=== PATIENT | male | born 1940 | race Caucasian/White ===

== ENCOUNTER 2017-01-19 18:33 | Inpatient (IN) | payer MEDICARE, MEDICAID ==
[~2017-01-19] VITALS: Ht 180.3 cm; Wt 61.8 kg
[~2017-01-19 18:33] MED LIST: ATOR40TA78 PO; CLOP75TA22 PO; GABA-827 PO; GABA300C10 PO; HYDR25TA6 PO; LISI-170 PO; OXYC5CAP4 PO
[2017-01-19 19:09] LABS: DAU SCREEN DISCLAIMER
[2017-01-19 19:30] LABS: BLOOD UREA NITROGEN 19 mg/dL (7-18)
[2017-01-19 19:34] LABS: ASPARTATE AMINO TRANSFERASE 17 U/L (15-37)
[2017-01-19 19:39] LABS: ACETAMINOPHEN < 2 mcg/mL (10-30)
[2017-01-19] MEDS ORDERED: PARO20TA4 PO (20:47)
[2017-01-19] MEDS ORDERED: DIVA125T3 PO (20:47)
[2017-01-19] MEDS ORDERED: LISI40TA PO (20:47)
[2017-01-19] MEDS ORDERED: TRAM50TA2 PO (20:47)
[2017-01-19] MEDS ORDERED: POLYETHYLENE GLYCOL 17 GM PACKET PO PRN (21:30)
[2017-01-19] MEDS ORDERED: BISACODYL 10 MG SUPP PR PRN (21:30)
[2017-01-19] MEDS ORDERED: ACETAMINOPHEN 325 MG TABLET PO PRN (21:30)
[2017-01-19] MEDS ORDERED: ONDANSETRON 2MG/ML, 2ML IVPush PRN (21:30)
[2017-01-19] MEDS: LISINOPRIL 20 MG TABLET PO SCH (23:48)
[2017-01-19] MEDS: DIVALPROEX 125 MG TABLET.DR PO SCH (23:48)
[2017-01-19] MEDS: GABAPENTIN 400 MG CAPSULE PO SCH (23:48)
[2017-01-19] MEDS: ATORVASTATIN 40 MG TABLET PO SCH (23:48)
[2017-01-19] MEDS: HEPARIN 5,000 UNITS/ML, 1ML SQ SCH (23:49)
[2017-01-19] MEDS: SODIUM CHLORIDE FLUSH 10ML SYR IVF SCH (23:49)
[2017-01-20 00:38] VITALS: BP 157/91
[2017-01-20 03:12] VITALS: BP 159/94
[2017-01-20] MEDS: HEPARIN 5,000 UNITS/ML, 1ML SQ SCH ×2 (08:58→17:13)
[2017-01-20] MEDS: LISINOPRIL 20 MG TABLET PO SCH ×2 (08:59→20:06)
[2017-01-20] MEDS: PAROXETINE 20 MG TABLET PO SCH (08:59)
[2017-01-20] MEDS: DIVALPROEX 125 MG TABLET.DR PO SCH ×3 (08:59→20:06)
[2017-01-20] MEDS: SODIUM CHLORIDE FLUSH 10ML SYR IVF SCH ×2 (08:59→20:07)
[2017-01-20] MEDS: FOLIC ACID 1 MG TABLET PO SCH (08:59)
[2017-01-20] MEDS ORDERED: SENNA/DOCUSATE TABLET PO SCH (09:00)
[2017-01-20] MEDS: CLOPIDOGREL 75 MG TABLET PO SCH (09:00)
[2017-01-20] MEDS: CYANOCOBALAMIN 1,000 MCG TABLET PO SCH (09:00)
[2017-01-20] MEDS: GABAPENTIN 400 MG CAPSULE PO SCH ×2 (09:00→20:06)
[2017-01-20 09:18] VITALS: BP 114/73
[2017-01-20 14:00] VITALS: BP 147/73
[2017-01-20] MEDS ORDERED: BISACODYL 10 MG SUPP PR PRN (15:30)
[2017-01-20] MEDS ORDERED: ACETAMINOPHEN 325 MG TABLET PO PRN (15:30)
[2017-01-20 18:56] VITALS: BP 132/78
[2017-01-20] MEDS: ATORVASTATIN 40 MG TABLET PO SCH (20:06)
[2017-01-21] MEDS: HEPARIN 5,000 UNITS/ML, 1ML SQ SCH ×3 (01:46→18:25)
[2017-01-21 02:23] VITALS: BP 158/84
[2017-01-21 07:18] VITALS: BP 154/84
[2017-01-21] MEDS: SODIUM CHLORIDE FLUSH 10ML SYR IVF SCH ×2 (10:26→21:20)
[2017-01-21] MEDS: DIVALPROEX 125 MG TABLET.DR PO SCH ×3 (10:26→21:20)
[2017-01-21] MEDS: PAROXETINE 20 MG TABLET PO SCH (10:26)
[2017-01-21] MEDS: GABAPENTIN 400 MG CAPSULE PO SCH ×2 (10:26→21:20)
[2017-01-21] MEDS: FOLIC ACID 1 MG TABLET PO SCH (10:26)
[2017-01-21] MEDS: LISINOPRIL 20 MG TABLET PO SCH ×2 (10:26→21:20)
[2017-01-21] MEDS: CYANOCOBALAMIN 1,000 MCG TABLET PO SCH (10:27)
[2017-01-21] MEDS: SENNA/DOCUSATE TABLET PO SCH (10:27)
[2017-01-21] MEDS: CLOPIDOGREL 75 MG TABLET PO SCH (10:30)
[2017-01-21 13:19] VITALS: BP 125/73
[2017-01-21 20:03] VITALS: BP 130/74
[2017-01-21] MEDS: ATORVASTATIN 40 MG TABLET PO SCH (21:20)
[2017-01-22 00:05] VITALS: BP 159/81
[2017-01-22] MEDS: HEPARIN 5,000 UNITS/ML, 1ML SQ SCH ×3 (05:08→20:30)
[2017-01-22 08:03] VITALS: BP 121/78
[2017-01-22] MEDS: LISINOPRIL 20 MG TABLET PO SCH ×2 (08:47→21:23)
[2017-01-22] MEDS: GABAPENTIN 400 MG CAPSULE PO SCH ×2 (08:47→21:24)
[2017-01-22] MEDS: PAROXETINE 20 MG TABLET PO SCH (08:47)
[2017-01-22] MEDS: SODIUM CHLORIDE FLUSH 10ML SYR IVF SCH ×2 (08:47→21:24)
[2017-01-22] MEDS: CYANOCOBALAMIN 1,000 MCG TABLET PO SCH (08:47)
[2017-01-22] MEDS: CLOPIDOGREL 75 MG TABLET PO SCH (08:47)
[2017-01-22] MEDS: SENNA/DOCUSATE TABLET PO SCH (08:47)
[2017-01-22] MEDS: DIVALPROEX 125 MG TABLET.DR PO SCH ×3 (08:48→21:24)
[2017-01-22] MEDS: FOLIC ACID 1 MG TABLET PO SCH (08:48)
[2017-01-22 15:11] VITALS: BP 120/68
[2017-01-22 20:00] VITALS: BP 159/78
[2017-01-22] MEDS: ATORVASTATIN 40 MG TABLET PO SCH (21:24)
[2017-01-23 02:00] VITALS: BP 125/74
[2017-01-23] MEDS: HEPARIN 5,000 UNITS/ML, 1ML SQ SCH ×3 (04:30→21:15)
[2017-01-23 07:50] VITALS: BP 129/77
[2017-01-23] MEDS: SODIUM CHLORIDE FLUSH 10ML SYR IVF SCH ×2 (09:00→21:14)
[2017-01-23] MEDS: SENNA/DOCUSATE TABLET PO SCH (09:00)
[2017-01-23] MEDS: CYANOCOBALAMIN 1,000 MCG TABLET PO SCH (09:27)
[2017-01-23] MEDS: FOLIC ACID 1 MG TABLET PO SCH (09:27)
[2017-01-23] MEDS: CLOPIDOGREL 75 MG TABLET PO SCH (09:27)
[2017-01-23] MEDS: LISINOPRIL 20 MG TABLET PO SCH ×2 (09:27→21:15)
[2017-01-23] MEDS: PAROXETINE 20 MG TABLET PO SCH (09:27)
[2017-01-23] MEDS: GABAPENTIN 400 MG CAPSULE PO SCH ×2 (09:27→21:15)
[2017-01-23] MEDS: DIVALPROEX 125 MG TABLET.DR PO SCH ×3 (09:27→21:15)
[2017-01-23 14:41] VITALS: BP 110/6
[2017-01-23 18:48] VITALS: BP 116/73
[2017-01-23] MEDS: ATORVASTATIN 40 MG TABLET PO SCH (21:15)
[2017-01-24 01:33] VITALS: BP 116/69
[2017-01-24] MEDS: HEPARIN 5,000 UNITS/ML, 1ML SQ SCH ×3 (05:00→21:30)
[2017-01-24 06:59] VITALS: BP 128/78
[2017-01-24] MEDS: GABAPENTIN 400 MG CAPSULE PO SCH ×2 (10:24→21:29)
[2017-01-24] MEDS: CYANOCOBALAMIN 1,000 MCG TABLET PO SCH (10:24)
[2017-01-24] MEDS: LISINOPRIL 20 MG TABLET PO SCH ×2 (10:24→21:29)
[2017-01-24] MEDS: FOLIC ACID 1 MG TABLET PO SCH (10:24)
[2017-01-24] MEDS: DIVALPROEX 125 MG TABLET.DR PO SCH ×3 (10:24→21:29)
[2017-01-24] MEDS: CLOPIDOGREL 75 MG TABLET PO SCH (10:24)
[2017-01-24] MEDS: PAROXETINE 20 MG TABLET PO SCH (10:24)
[2017-01-24] MEDS: SENNA/DOCUSATE TABLET PO SCH (10:24)
[2017-01-24] MEDS: SODIUM CHLORIDE FLUSH 10ML SYR IVF SCH ×2 (10:26→21:29)
[2017-01-24 13:53] VITALS: BP 122/73
[2017-01-24 20:44] VITALS: BP 160/85
[2017-01-24] MEDS: ATORVASTATIN 40 MG TABLET PO SCH (21:29)
[2017-01-25 02:59] VITALS: BP 132/81
[2017-01-25] MEDS: HEPARIN 5,000 UNITS/ML, 1ML SQ SCH ×2 (05:00→12:13)
[2017-01-25 08:04] VITALS: BP 132/73
[2017-01-25] MEDS: CLOPIDOGREL 75 MG TABLET PO SCH (08:34)
[2017-01-25] MEDS: FOLIC ACID 1 MG TABLET PO SCH (08:35)
[2017-01-25] MEDS: CYANOCOBALAMIN 1,000 MCG TABLET PO SCH (08:35)
[2017-01-25] MEDS: LISINOPRIL 20 MG TABLET PO SCH (08:35)
[2017-01-25] MEDS: SODIUM CHLORIDE FLUSH 10ML SYR IVF SCH (08:35)
[2017-01-25] MEDS: PAROXETINE 20 MG TABLET PO SCH (08:35)
[2017-01-25] MEDS: GABAPENTIN 400 MG CAPSULE PO SCH (08:35)
[2017-01-25] MEDS: SENNA/DOCUSATE TABLET PO SCH (08:35)
[2017-01-25] MEDS: DIVALPROEX 125 MG TABLET.DR PO SCH ×2 (08:35→16:05)
== END 2017-01-25 16:00 | DRG 641 ==
LOC: ED 21:59 → EDIP 22:00 → 3NE 22:54
PROVIDERS: ADMIT Internal Medicine; ATTEND Internal Medicine
DX: R62.7 Adult failure to thrive (principal); E44.1 Mild protein-calorie malnutrition; Z68.1 Body mass index [BMI] 19.9 or less, adult; D75.89 Other specified diseases of blood and blood-forming organs; E78.00 Pure hypercholesterolemia, unspecified; E78.5 Hyperlipidemia, unspecified; F09 Unspecified mental disorder due to known physiological condition; F91.9 Conduct disorder, unspecified; G62.9 Polyneuropathy, unspecified; I10 Essential (primary) hypertension; Z86.73 Personal history of transient ischemic attack (TIA), and cerebral infarction without residual deficits; Z91.19 Patient's noncompliance with other medical treatment and regimen; Z91.81 History of falling
CPT/HCPCS: 36415; 80053; 80307; 80329; 81001; 85025; 87086; 99285; J1644; G0480

== ENCOUNTER 2017-01-28 10:45 | Inpatient (IN) | payer MEDICARE, MEDICAID ==
[~2017-01-28] VITALS: Ht 180.3 cm; Wt 67.7 kg
[~2017-01-28 10:45] MED LIST changes: +DIVA125T3 PO; +LISI40TA PO; +PARO20TA4 PO; +TRAM50TA2 PO
[2017-01-28] MEDS ORDERED: SODIUM CHLORIDE 0.9% 1,000 ML IV ONE (11:07)
[2017-01-28] MEDS ORDERED: CETI10CA PO (11:19)
[2017-01-28] MEDS ORDERED: DIVA125T2 PO (11:19)
[2017-01-28] MEDS ORDERED: ONDANSETRON 2MG/ML, 2ML IVPush ONE (11:30)
[2017-01-28] MEDS ORDERED: SODIUM CHLORIDE FLUSH 10ML SYR IVF ONE (11:30)
[2017-01-28] MEDS ORDERED: MORPHINE SULFATE 4 MG/ML, 1ML ONE ×2 (11:33→13:14)
[2017-01-28] MEDS ORDERED: ONDANSETRON 2MG/ML, 2ML ONE (11:33)
[2017-01-28] MEDS: MORPHINE SULFATE 4 MG/ML, 1ML IVPush PRN ×2 (11:35→13:19)
[2017-01-28 11:36] LABS: HEMATOCRIT 39.5 % (39.2-51.8); HEMOGLOBIN 13.1 g/dL (13.7-18.0); WHITE BLOOD COUNT 8.4 x10^3/uL (3.4-10)
[2017-01-28 12:34] LABS: IS PT STATUS REG ER OR PRE ER? YES
[2017-01-28 12:42] LABS: BLOOD UREA NITROGEN 25 mg/dL (7-18)
[2017-01-28 13:20] LABS: PATH.CAST-FLAG NOT PRESENT; SPERM-FLAG NOT PRESENT; SRC-FLAG NOT PRESENT; XTAL-FLAG NOT PRESENT; YLC-FLAG NOT PRESENT
[2017-01-28] MEDS ORDERED: POLYETHYLENE GLYCOL 17 GM PACKET PO PRN (14:30)
[2017-01-28 15:29] VITALS: BP 141/83
[2017-01-28 15:36] VITALS: BP 148/82
[2017-01-28 15:41] VITALS: BP 146/81
[2017-01-28] MEDS: DIVALPROEX 125 MG TABLET.DR PO SCH ×2 (16:00→20:26)
[2017-01-28 16:20] VITALS: BP 147/79
[2017-01-28 16:54] VITALS: BP 146/88
[2017-01-28] MEDS: SODIUM CHLORIDE 0.9% 1,000 ML IV SCH (20:17)
[2017-01-28] MEDS: ATORVASTATIN 40 MG TABLET PO SCH (20:26)
[2017-01-29 03:24] LABS: HEMATOCRIT 35.6 % (39.2-51.8); HEMOGLOBIN 11.6 g/dL (13.7-18.0); WHITE BLOOD COUNT 8.4 x10^3/uL (3.4-10)
[2017-01-29 03:38] LABS: ASPARTATE AMINO TRANSFERASE 18 U/L (15-37); BLOOD UREA NITROGEN 19 mg/dL (7-18)
[2017-01-29 04:30] VITALS: BP 139/85
[2017-01-29] MEDS: PANTOPRAZOLE 40 MG IV IVPush SCH ×2 (04:36→15:16)
[2017-01-29] MEDS: SODIUM CHLORIDE 0.9% 1,000 ML IV SCH ×3 (05:44→20:07)
[2017-01-29] MEDS ORDERED: PANTOPROZOLE 40MG TABLET PO SCH (07:30)
[2017-01-29] MEDS: PAROXETINE 20 MG TABLET PO SCH (08:11)
[2017-01-29] MEDS: ONDANSETRON 2MG/ML, 2ML IVPush PRN ×2 (08:11→15:15)
[2017-01-29] MEDS: SENNA/DOCUSATE TABLET PO SCH (08:11)
[2017-01-29] MEDS: DIVALPROEX 125 MG TABLET.DR PO SCH ×3 (08:11→21:05)
[2017-01-29] MEDS: hydrALAzine 20 MG/ML, 1ML IVPush PRN (12:56)
[2017-01-29] MEDS ORDERED: MORPHINE SULFATE 4 MG/ML, 1ML ONE (13:27)
[2017-01-29] MEDS ORDERED: morphine SULFATE 10 MG/ML, 1ML IVPush ONE (14:00)
[2017-01-29] MEDS ORDERED: PROMETHAZINE 25 MG/ML, 1ML IM PRN (16:30)
[2017-01-29] MEDS: ENALAPRILAT 1.25 MG/ML, 2ML IVPush PRN (18:03)
[2017-01-29] MEDS: ATORVASTATIN 40 MG TABLET PO SCH (21:05)
[2017-01-30] MEDS: hydrALAzine 20 MG/ML, 1ML IVPush PRN ×5 (00:09→23:12)
[2017-01-30] MEDS: PANTOPRAZOLE 40 MG IV IVPush SCH (03:19)
[2017-01-30 04:00] VITALS: BP 107/61
[2017-01-30] MEDS: SODIUM CHLORIDE 0.9% 1,000 ML IV SCH ×3 (04:38→20:02)
[2017-01-30] MEDS: SENNA/DOCUSATE TABLET PO SCH (08:44)
[2017-01-30] MEDS: DIVALPROEX 125 MG TABLET.DR PO SCH ×3 (08:44→21:06)
[2017-01-30] MEDS: PAROXETINE 20 MG TABLET PO SCH (08:44)
[2017-01-30] MEDS: ACETAMINOPHEN 325 MG TABLET PO PRN ×2 (10:36→17:53)
[2017-01-30] MEDS: ONDANSETRON 2MG/ML, 2ML IVPush PRN ×2 (10:55→17:41)
[2017-01-30] MEDS: AMPICILLIN/SULBACTAM 3 GM in SODIUM CHLORIDE 0.9% 100 ML IV SCH ×2 (13:31→20:02)
[2017-01-30] MEDS: ENALAPRILAT 1.25 MG/ML, 2ML IVPush PRN (17:17)
[2017-01-30] MEDS: ATORVASTATIN 40 MG TABLET PO SCH (21:06)
[2017-01-31] MEDS: AMPICILLIN/SULBACTAM 3 GM in SODIUM CHLORIDE 0.9% 100 ML IV SCH ×4 (01:07→21:34)
[2017-01-31 04:00] VITALS: BP 153/68
[2017-01-31 04:51] LABS: HEMATOCRIT 40.3 % (39.2-51.8); HEMOGLOBIN 13.2 g/dL (13.7-18.0); WHITE BLOOD COUNT 7.4 x10^3/uL (3.4-10)
[2017-01-31] MEDS: ENALAPRILAT 1.25 MG/ML, 2ML IVPush PRN ×2 (04:53→18:21)
[2017-01-31 05:02] LABS: BLOOD UREA NITROGEN 10 mg/dL (7-18)
[2017-01-31] MEDS: SODIUM CHLORIDE 0.9% 1,000 ML IV SCH ×2 (05:37→14:05)
[2017-01-31] MEDS: PAROXETINE 20 MG TABLET PO SCH (08:09)
[2017-01-31] MEDS: DIVALPROEX 125 MG TABLET.DR PO SCH ×3 (08:09→21:34)
[2017-01-31] MEDS: SENNA/DOCUSATE TABLET PO SCH (08:09)
[2017-01-31] MEDS: ONDANSETRON 2MG/ML, 2ML IVPush PRN (08:11)
[2017-01-31] MEDS: hydrALAzine 20 MG/ML, 1ML IVPush PRN ×2 (12:04→15:37)
[2017-01-31 18:21] VITALS: BP 167/78
[2017-01-31 19:44] VITALS: BP 131/78
[2017-01-31 20:00] VITALS: BP 117/65
[2017-01-31 21:30] VITALS: BP 123/73
[2017-01-31] MEDS: ATORVASTATIN 40 MG TABLET PO SCH (21:34)
[2017-02-01 01:18] VITALS: BP 136/74
[2017-02-01 01:52] VITALS: BP 137/70
[2017-02-01] MEDS: SODIUM CHLORIDE 0.9% 1,000 ML IV SCH ×2 (03:11→08:24)
[2017-02-01] MEDS: AMPICILLIN/SULBACTAM 3 GM in SODIUM CHLORIDE 0.9% 100 ML IV SCH ×4 (03:11→22:19)
[2017-02-01 05:47] LABS: HEMATOCRIT 35.8 % (39.2-51.8); HEMOGLOBIN 11.9 g/dL (13.7-18.0); WHITE BLOOD COUNT 6.9 x10^3/uL (3.4-10)
[2017-02-01 05:57] LABS: ASPARTATE AMINO TRANSFERASE 14 U/L (15-37); BLOOD UREA NITROGEN 12 mg/dL (7-18)
[2017-02-01 08:06] VITALS: BP 153/74
[2017-02-01] MEDS: SENNA/DOCUSATE TABLET PO SCH (08:23)
[2017-02-01] MEDS: DIVALPROEX 125 MG TABLET.DR PO SCH ×3 (08:23→22:19)
[2017-02-01] MEDS: PAROXETINE 20 MG TABLET PO SCH (08:23)
[2017-02-01 12:50] VITALS: BP 131/79
[2017-02-01] MEDS ORDERED: POTASSIUM CHLORIDE 20 MEQ TAB.ER.PRT PO ONE (14:30)
[2017-02-01 19:40] VITALS: BP 162/80
[2017-02-01] MEDS: ATORVASTATIN 40 MG TABLET PO SCH (22:19)
[2017-02-02 02:21] VITALS: BP 151/76
[2017-02-02] MEDS: AMPICILLIN/SULBACTAM 3 GM in SODIUM CHLORIDE 0.9% 100 ML IV SCH ×4 (05:04→23:45)
[2017-02-02 05:53] LABS: HEMATOCRIT 34.2 % (39.2-51.8); HEMOGLOBIN 11.5 g/dL (13.7-18.0); WHITE BLOOD COUNT 6.7 x10^3/uL (3.4-10)
[2017-02-02 06:03] LABS: BLOOD UREA NITROGEN 17 mg/dL (7-18)
[2017-02-02] MEDS: SENNA/DOCUSATE TABLET PO SCH (07:15)
[2017-02-02] MEDS: PAROXETINE 20 MG TABLET PO SCH (07:15)
[2017-02-02] MEDS: DIVALPROEX 125 MG TABLET.DR PO SCH ×3 (07:15→20:43)
[2017-02-02 07:57] VITALS: BP 156/87
[2017-02-02 12:50] VITALS: BP 129/68
[2017-02-02 20:24] VITALS: BP 160/82
[2017-02-02] MEDS: ATORVASTATIN 40 MG TABLET PO SCH (20:43)
[2017-02-03 04:55] VITALS: BP 151/79
[2017-02-03] MEDS: AMPICILLIN/SULBACTAM 3 GM in SODIUM CHLORIDE 0.9% 100 ML IV SCH ×2 (05:22→10:37)
[2017-02-03] MEDS: DIVALPROEX 125 MG TABLET.DR PO SCH ×3 (10:24→20:20)
[2017-02-03] MEDS: PAROXETINE 20 MG TABLET PO SCH (10:24)
[2017-02-03] MEDS: LISINOPRIL 10 MG TABLET PO SCH (10:25)
[2017-02-03] MEDS: SENNA/DOCUSATE TABLET PO SCH (10:25)
[2017-02-03 10:33] VITALS: BP 186/91
[2017-02-03] MEDS: hydrALAzine 20 MG/ML, 1ML IVPush PRN (10:37)
[2017-02-03 11:50] VITALS: BP 120/65
[2017-02-03 13:45] VITALS: BP 120/68
[2017-02-03] MEDS: ACETAMINOPHEN 325 MG TABLET PO PRN (15:43)
[2017-02-03 20:16] VITALS: BP 146/73
[2017-02-03] MEDS: ATORVASTATIN 40 MG TABLET PO SCH (20:21)
[2017-02-04 00:59] VITALS: BP 143/65
[2017-02-04] MEDS: SENNA/DOCUSATE TABLET PO SCH (08:05)
[2017-02-04] MEDS: LISINOPRIL 10 MG TABLET PO SCH (08:06)
[2017-02-04] MEDS: PAROXETINE 20 MG TABLET PO SCH (08:06)
[2017-02-04] MEDS: DIVALPROEX 125 MG TABLET.DR PO SCH ×3 (08:06→20:54)
[2017-02-04 08:08] VITALS: BP 144/87
[2017-02-04] MEDS ORDERED: CEFAZOLIN PMX 1GM/50ML 50 ML IVPB ONE (10:00)
[2017-02-04] MEDS: SODIUM CHLORIDE 0.9% 1,000 ML IV SCH ×2 (12:26→17:58)
[2017-02-04] MEDS ORDERED: CEFAZOLIN PMX 1GM/50ML 50 ML ONE (14:00)
[2017-02-04] MEDS ORDERED: MIDAZOLAM 1 MG/ML, 5ML ONE (14:00)
[2017-02-04] MEDS ORDERED: LIDOCAINE 2%, 20ML ONE (14:00)
[2017-02-04] MEDS ORDERED: FENTANYL PF 100 MCG/2ML ONE (14:00)
[2017-02-04] MEDS ORDERED: CEFAZOLIN 1,000 MG ONE (14:00)
[2017-02-04] MEDS ORDERED: ONDANSETRON 2MG/ML, 2ML ONE (15:33)
[2017-02-04] MEDS: hydrALAzine 20 MG/ML, 1ML IVPush PRN (16:28)
[2017-02-04] MEDS: ONDANSETRON 2MG/ML, 2ML IVPush PRN (17:46)
[2017-02-04] MEDS: ENALAPRILAT 1.25 MG/ML, 2ML IVPush PRN (17:50)
[2017-02-04 17:51] VITALS: BP 171/85
[2017-02-04] MEDS: ACETAMINOPHEN 325 MG TABLET PO PRN (18:09)
[2017-02-04 20:44] VITALS: BP 138/80
[2017-02-04] MEDS: ATORVASTATIN 40 MG TABLET PO SCH (20:54)
[2017-02-04] MEDS: SODIUM CHLORIDE FLUSH 10ML SYR IVF SCH (20:54)
[2017-02-04] MEDS ORDERED: VANCOMYCIN PMX 1GM/200ML 200 ML IVPB SCH (22:00)
[2017-02-04] MEDS: CEFAZOLIN PMX 1GM/50ML 50 ML IV SCH (23:00)
[2017-02-05 01:34] VITALS: BP 146/74
[2017-02-05] MEDS: CEFAZOLIN PMX 1GM/50ML 50 ML IV SCH (07:21)
[2017-02-05 07:40] VITALS: BP 171/85
[2017-02-05] MEDS: SODIUM CHLORIDE FLUSH 10ML SYR IVF SCH (07:41)
[2017-02-05] MEDS: LISINOPRIL 10 MG TABLET PO SCH (07:42)
[2017-02-05] MEDS: SENNA/DOCUSATE TABLET PO SCH (07:42)
[2017-02-05] MEDS: PAROXETINE 20 MG TABLET PO SCH (07:42)
[2017-02-05] MEDS: DIVALPROEX 125 MG TABLET.DR PO SCH ×2 (07:42→15:58)
[2017-02-05] MEDS: hydrALAzine 20 MG/ML, 1ML IVPush PRN (07:45)
[2017-02-05 09:14] VITALS: BP_SYST 136
[2017-02-05] MEDS ORDERED: METOPROLOL TARTRATE 25 MG TABLET PO SCH (09:30)
[2017-02-05] MEDS ORDERED: METO25TA35 PO (12:14)
[2017-02-05] MEDS ORDERED: LISI-167 PO (12:14)
[2017-02-05] MEDS: ONDANSETRON 2MG/ML, 2ML IVPush PRN (12:20)
[2017-02-05 12:23] VITALS: BP 122/74
[2017-02-05 13:58] VITALS: BP 146/82
[2017-02-05] MEDS ORDERED: LISINOPRIL 10 MG TABLET PO SCH (21:00)
== END 2017-02-05 16:34 | disposition home or self-care (01) | DRG 40 ==
LOC: ED 13:20 → EDIP 13:21 → ED 13:55 → CCU 16:29 → 5SO 01-31 15:08
PROVIDERS: ADMIT Internal Medicine; ATTEND Family Medicine
PROC: 30233R1 Transfusion of Nonautologous Platelets into Peripheral Vein, Percutaneous Approach (ICD-10-PCS; 2017-01-28)
PROC: 02H63JZ Insertion of Pacemaker Lead into Right Atrium, Percutaneous Approach (ICD-10-PCS; principal; 2017-02-04)
PROC: 0JH606Z Insertion of Pacemaker, Dual Chamber into Chest Subcutaneous Tissue and Fascia, Open Approach (ICD-10-PCS; 2017-02-04)
PROC: 02HK3JZ Insertion of Pacemaker Lead into Right Ventricle, Percutaneous Approach (ICD-10-PCS; 2017-02-04)
DX: S06.6X9A Traumatic subarachnoid hemorrhage with loss of consciousness of unspecified duration, initial encounter (principal); G93.40 Encephalopathy, unspecified; E43 Unspecified severe protein-calorie malnutrition; I50.20 Unspecified systolic (congestive) heart failure; I11.0 Hypertensive heart disease with heart failure; G62.9 Polyneuropathy, unspecified; S02.30XA Fracture of orbital floor, unspecified side, initial encounter for closed fracture; I42.9 Cardiomyopathy, unspecified; F03.90 Unspecified dementia, unspecified severity, without behavioral disturbance, psychotic disturbance, mood disturbance, and anxiety; S02.0XXA Fracture of vault of skull, initial encounter for closed fracture; S02.19XA Other fracture of base of skull, initial encounter for closed fracture; S02.40FA Zygomatic fracture, left side, initial encounter for closed fracture; D75.89 Other specified diseases of blood and blood-forming organs; I10 Essential (primary) hypertension; R53.81 Other malaise; E78.5 Hyperlipidemia, unspecified; R00.1 Bradycardia, unspecified; E78.00 Pure hypercholesterolemia, unspecified; I44.1 Atrioventricular block, second degree; K05.6 Periodontal disease, unspecified; M43.12 Spondylolisthesis, cervical region; W18.39XA Other fall on same level, initial encounter; Z59.0 Homelessness; Z86.73 Personal history of transient ischemic attack (TIA), and cerebral infarction without residual deficits; Z87.891 Personal history of nicotine dependence; Y93.89 Activity, other specified; Y92.098 Other place in other non-institutional residence as the place of occurrence of the external cause; Y99.8 Other external cause status
CPT/HCPCS: 33208; 36415; 70450; 70486; 71010; 72125; 80048; 80053; 80164; 81001; 82040; 82607; 82746; 84443; 84484; 85025; 85610; 85730; 86850; 86900; 87081; 93005; 93306; 99156; 99157; 99291; C1779; C1785; C1892; J0295; J0690; J2250; J2405; J2550; J3010; J3490; 92523-GN; C9113; J0360; J2270; J7030; P9035

== ENCOUNTER 2017-03-05 10:17 | Inpatient (IN) | payer MEDICARE, MEDICAID ==
[~2017-03-05] VITALS: Ht 175.3 cm; Wt 105.1 kg
[~2017-03-05 10:17] MED LIST changes: +CETI10CA PO; -CLOP75TA22 PO; +CLOP75TA52 PO; +DIVA125T2 PO; +LISI-167 PO; +METO25TA35 PO; +OXYC5CAP2 PO; -OXYC5CAP4 PO
[2017-03-05] MEDS ORDERED: SODIUM CHLORIDE 0.9% 1,000ML IVBOLUS ONE (10:30)
[2017-03-05] MEDS ORDERED: SODIUM CHLORIDE FLUSH 10ML SYR IVF ONE (10:30)
[2017-03-05 11:32] LABS: TROPONIN I 0.309 ng/mL (0.000-0.045)
[2017-03-05 11:46] LABS: MD YES; MEAN CORPUSCULAR HEMOGLOBIN 32.9 pg (27.5-34.5); MEAN CORPUSCULAR HGB CONC 33.3 g/dL (33.2-36.2); MEAN CORPUSCULAR VOLUME 98.6 fL (81-97); MEAN PLATELET VOLUME 9.6 fL (7.4-10.4); PLATELET COUNT 100 x10^3/uL (130-400); RED BLOOD COUNT 3.88 x10^6/uL (4.38-5.82); RED CELL DISTRIBUTION WIDTH 15.4 % (9.4-14.8)
[2017-03-05 11:48] LABS: BAND#(MANUAL) 1.54 x10^3/uL; BANDS%(MANUAL) 8 % (0-7); MONOS#(MANUAL) 0.39 x10^3/uL (0.3-2.7); MONOS% (MANUAL) 2 % (2-9)
[2017-03-05 11:49] LABS: LYMPH#(MANUAL) 0.19 x10^3/uL (1-3.4); LYMPHS% (MANUAL) 1 % (22-44); SEGS% (MANUAL) 89 % (42-75)
[2017-03-05 11:50] LABS: <RBC MORPHOLOGY> NORMAL
[2017-03-05 11:51] LABS: <PLATELET ESTIMATE> DECREASED; LARGE PLATELETS 1+
[2017-03-05 12:17] LABS: ANION GAP 10 mmol/L (5-15); CALCIUM 7.9 mg/dL (8.5-10.1); CHLORIDE 111 mmol/L (98-107)
[2017-03-05 12:20] LABS: ALANINE AMINOTRANSFERASE 52 U/L (12-78); CREATININE 1.72 mg/dL (0.7-1.3)
[2017-03-05 12:22] LABS: ALKALINE PHOSPHATASE 129 U/L (45-117); BILIRUBIN,TOTAL 0.8 mg/dL (0.2-1.0); TOTAL PROTEIN 7.6 g/dL (6.4-8.2)
[2017-03-05 13:23] LABS: MICROSCOPIC INDICATED
[2017-03-05 13:29] LABS: CULTURE INDICATED? YES
[2017-03-05] MEDS ORDERED: SODIUM CHLORIDE 0.9% 1,000 ML IV ONE (13:30)
[2017-03-05] MEDS ORDERED: CEFTRIAXONE PMX 1GM/50ML 50 ML IV ONE (13:30)
[2017-03-05] MEDS ORDERED: CEFTRIAXONE PMX 1GM/50ML 50 ML ONE (13:47)
[2017-03-05] MEDS ORDERED: ONDANSETRON 2MG/ML, 2ML IVPush PRN (15:30)
[2017-03-05] MEDS ORDERED: morphine SULFATE 10 MG/ML, 1ML IVPush PRN (15:30)
[2017-03-05] MEDS ORDERED: INSULIN DETEMIR 100 UNITS/ML, PEN SQ-INSULIN SCH (15:30)
[2017-03-05] MEDS ORDERED: ACETAMINOPHEN 325 MG TABLET PO PRN (15:30)
[2017-03-05] MEDS ORDERED: HYDROcodone/APAP 5/325 TABLET PO PRN (15:30)
[2017-03-05] MEDS ORDERED: hydrALAzine 20 MG/ML, 1ML IVPush PRN (15:30)
[2017-03-05] MEDS ORDERED: DEXTROSE 5% 1,000 ML IV SCH ×2 (15:30→17:50)
[2017-03-05] MEDS: CEFTRIAXONE PMX 1GM/50ML 50 ML IV SCH (15:30)
[2017-03-05 15:36] LABS: HEMOGLOBIN A1C 6.2 % (4.2-6.3)
[2017-03-05] MEDS: INSULIN ASPART 100 UNITS/ML, PEN SQ-INSULIN SCH ×2 (16:54→21:27)
[2017-03-05] MEDS: DIVALPROEX 125 MG TABLET.DR PO SCH ×2 (16:55→22:25)
[2017-03-05] MEDS ORDERED: VANCOMYCIN PER PHARMACY MC PRN (20:30)
[2017-03-05 20:47] VITALS: BP 81/50
[2017-03-05] MEDS ORDERED: PHARMACOKINETIC MONITORING MC PRN (21:00)
[2017-03-05] MEDS ORDERED: PHARMACOKINETIC CONSULTATION MC ONE (21:00)
[2017-03-05 21:24] VITALS: BP 119/77
[2017-03-05] MEDS: METOPROLOL TARTRATE 25 MG TABLET PO SCH (22:25)
[2017-03-05] MEDS: ATORVASTATIN 40 MG TABLET PO SCH (22:25)
[2017-03-05] MEDS: GABAPENTIN 400 MG CAPSULE PO SCH (22:25)
[2017-03-05] MEDS: LISINOPRIL 10 MG TABLET PO SCH (22:25)
[2017-03-05] MEDS: VANCOMYCIN 1,300 MG in SODIUM CHLORIDE 0.9% 250 ML IV SCH (22:46)
[2017-03-06 00:12] VITALS: BP 97/64
[2017-03-06] MEDS ORDERED: DIGOXIN 0.25 MG/ML, 2ML ONE (02:56)
[2017-03-06] MEDS ORDERED: DIGOXIN 0.25 MG/ML, 2ML IVPush ONE (03:00)
[2017-03-06] MEDS ORDERED: SODIUM CHLORIDE 0.9% 1,000 ML IVBOLUS PRN (03:07)
[2017-03-06] MEDS ORDERED: AMIODARONE 150 MG in DEXTROSE 5% 100 ML IV ONE (03:30)
[2017-03-06] MEDS ORDERED: FILTER 0.22 MICRON IV ONE (03:30)
[2017-03-06] MEDS ORDERED: ADENOSINE 6 MG/2 ML ONE ×2 (03:37→08:00)
[2017-03-06 03:41] LABS: TROPONIN I 0.155 ng/mL (0.000-0.045)
[2017-03-06 03:45] LABS: MEAN CORPUSCULAR HGB CONC 33.4 g/dL (33.2-36.2); MEAN CORPUSCULAR VOLUME 98.6 fL (81-97); MEAN PLATELET VOLUME 10.4 fL (7.4-10.4); PLATELET COUNT 61 x10^3/uL (130-400); RED BLOOD COUNT 3.59 x10^6/uL (4.38-5.82); RED CELL DISTRIBUTION WIDTH 15.6 % (9.4-14.8)
[2017-03-06] MEDS ORDERED: ACETAMINOPHEN 650 MG SUPP PR PRN (04:00)
[2017-03-06] MEDS ORDERED: ADENOSINE 6 MG/2 ML IVPush ONE ×2 (04:00)
[2017-03-06] MEDS ORDERED: FILTER 0.22 MICRON IV PRN (04:00)
[2017-03-06] MEDS: NOREPINEPHRINE 4 MG in SODIUM CHLORIDE 0.9% 246 ML IV PRN ×2 (04:00→13:11)
[2017-03-06] MEDS ORDERED: NOREPINEPHRINE 1 MG/ML, 4ML ONE (04:04)
[2017-03-06] MEDS ORDERED: LORazepam 2 MG/ML, 1ML ONE (04:19)
[2017-03-06] MEDS ORDERED: LORazepam 2 MG/ML, 1ML IVPush ONE (04:20)
[2017-03-06 04:25] LABS: BASOPHILS % (AUTO) 0 % (0-1); EOSINOPHILS # (AUTO) 0.03 x10^3/uL (0-0.4); EOSINOPHILS % (AUTO) 0 % (1-7); LYMPHOCYTES # (AUTO) 0.45 x10^3/uL (1-3.4); LYMPHOCYTES % (AUTO) 3 % (22-44); MD SCAN; MONOCYTES # (AUTO) 0.28 x10^3/uL (0.2-0.8); MONOCYTES % (AUTO) 2 % (2-9); NEUTROPHILS # (AUTO) 13.81 x10^3/uL (1.8-6.8); NEUTROPHILS % (AUTO) 95 % (42-75)
[2017-03-06 04:28] LABS: ALANINE AMINOTRANSFERASE 32 U/L (12-78); ALBUMIN 1.5 g/dL (3.4-5.0); ANION GAP 10 mmol/L (5-15); CALCIUM 7.6 mg/dL (8.5-10.1); CHLORIDE 115 mmol/L (98-107)
[2017-03-06 04:30] LABS: ALKALINE PHOSPHATASE 95 U/L (45-117); BILIRUBIN,TOTAL 0.6 mg/dL (0.2-1.0); TOTAL PROTEIN 6.1 g/dL (6.4-8.2)
[2017-03-06] MEDS: AMIODARONE 900 MG in DEXTROSE 5% 482 ML IV PRN (04:30)
[2017-03-06] MEDS: SODIUM CHLORIDE 0.9% 1,000 ML IV SCH ×2 (05:07→13:09)
[2017-03-06] MEDS: INSULIN ASPART 100 UNITS/ML, PEN SQ-INSULIN SCH ×4 (08:28→20:46)
[2017-03-06] MEDS: METOPROLOL TARTRATE 25 MG TABLET PO SCH ×2 (09:00→20:40)
[2017-03-06] MEDS: DIVALPROEX 125 MG TABLET.DR PO SCH ×3 (09:00→20:39)
[2017-03-06] MEDS: LISINOPRIL 10 MG TABLET PO SCH ×2 (09:00→20:40)
[2017-03-06] MEDS: PAROXETINE 20 MG TABLET PO SCH (09:00)
[2017-03-06] MEDS: GABAPENTIN 400 MG CAPSULE PO SCH ×2 (09:00→20:40)
[2017-03-06] MEDS: CEFTRIAXONE PMX 1GM/50ML 50 ML IV SCH (15:49)
[2017-03-06] MEDS: ATORVASTATIN 40 MG TABLET PO SCH (20:40)
[2017-03-06] MEDS: VANCOMYCIN 1,300 MG in SODIUM CHLORIDE 0.9% 250 ML IV SCH (20:47)
[2017-03-07] MEDS: SODIUM CHLORIDE 0.9% 1,000 ML IV SCH ×3 (00:35→16:34)
[2017-03-07 04:49] LABS: MEAN CORPUSCULAR HEMOGLOBIN 32.8 pg (27.5-34.5); MEAN CORPUSCULAR HGB CONC 33.4 g/dL (33.2-36.2); MEAN CORPUSCULAR VOLUME 98.1 fL (81-97); MEAN PLATELET VOLUME 11.8 fL (7.4-10.4); PLATELET COUNT 58 x10^3/uL (130-400); RED BLOOD COUNT 3.76 x10^6/uL (4.38-5.82); RED CELL DISTRIBUTION WIDTH 15.6 % (9.4-14.8)
[2017-03-07 04:59] LABS: ALBUMIN 1.4 g/dL (3.4-5.0); ANION GAP 7 mmol/L (5-15); CALCIUM 7.5 mg/dL (8.5-10.1); CHLORIDE 118 mmol/L (98-107)
[2017-03-07 05:02] LABS: ALANINE AMINOTRANSFERASE 24 U/L (12-78); ALKALINE PHOSPHATASE 93 U/L (45-117); BILIRUBIN,TOTAL 1.2 mg/dL (0.2-1.0); CREATININE 1.04 mg/dL (0.7-1.3); TOTAL PROTEIN 5.9 g/dL (6.4-8.2)
[2017-03-07 05:15] LABS: BASOPHILS # (AUTO) 0.24 x10^3/uL (0-0.1); BASOPHILS % (AUTO) 1 % (0-1); EOSINOPHILS % (AUTO) 0 % (1-7); LYMPHOCYTES # (AUTO) 0.56 x10^3/uL (1-3.4); LYMPHOCYTES % (AUTO) 3 % (22-44); MD SCAN; MONOCYTES # (AUTO) 0.45 x10^3/uL (0.2-0.8); MONOCYTES % (AUTO) 2 % (2-9); NEUTROPHILS # (AUTO) 17.52 x10^3/uL (1.8-6.8); NEUTROPHILS % (AUTO) 93 % (42-75)
[2017-03-07] MEDS: AMIODARONE 900 MG in DEXTROSE 5% 482 ML IV PRN (06:42)
[2017-03-07] MEDS: INSULIN ASPART 100 UNITS/ML, PEN SQ-INSULIN SCH ×3 (07:00→21:25)
[2017-03-07] MEDS: DIVALPROEX 125 MG TABLET.DR PO SCH ×3 (16:00→21:13)
[2017-03-07] MEDS: GABAPENTIN 400 MG CAPSULE PO SCH ×2 (16:09→21:16)
[2017-03-07] MEDS: METOPROLOL TARTRATE 25 MG TABLET PO SCH ×2 (16:10→21:14)
[2017-03-07] MEDS: PAROXETINE 20 MG TABLET PO SCH (16:10)
[2017-03-07] MEDS: LISINOPRIL 10 MG TABLET PO SCH ×2 (16:10→21:14)
[2017-03-07] MEDS: CEFTRIAXONE PMX 1GM/50ML 50 ML IV SCH (16:27)
[2017-03-07] MEDS: VANCOMYCIN 1,300 MG in SODIUM CHLORIDE 0.9% 250 ML IV SCH (21:14)
[2017-03-07] MEDS: ATORVASTATIN 40 MG TABLET PO SCH (21:14)
[2017-03-08] MEDS: SODIUM CHLORIDE 0.9% 1,000 ML IV SCH (02:32)
[2017-03-08] MEDS: INSULIN ASPART 100 UNITS/ML, PEN SQ-INSULIN SCH ×4 (03:00→23:21)
[2017-03-08 05:10] LABS: ALANINE AMINOTRANSFERASE 18 U/L (12-78); ALBUMIN 1.3 g/dL (3.4-5.0); ANION GAP 6 mmol/L (5-15); CALCIUM 7.5 mg/dL (8.5-10.1); CHLORIDE 122 mmol/L (98-107); MEAN CORPUSCULAR HEMOGLOBIN 33.3 pg (27.5-34.5); MEAN CORPUSCULAR HGB CONC 34.1 g/dL (33.2-36.2); MEAN CORPUSCULAR VOLUME 97.7 fL (81-97); MEAN PLATELET VOLUME 10.6 fL (7.4-10.4); RED BLOOD COUNT 3.93 x10^6/uL (4.38-5.82); RED CELL DISTRIBUTION WIDTH 15.6 % (9.4-14.8)
[2017-03-08 05:12] LABS: ALKALINE PHOSPHATASE 81 U/L (45-117); BILIRUBIN,TOTAL 1.1 mg/dL (0.2-1.0); CREATININE 1.05 mg/dL (0.7-1.3); TOTAL PROTEIN 5.8 g/dL (6.4-8.2)
[2017-03-08 05:14] LABS: PLATELET COUNT 48 x10^3/uL (130-400)
[2017-03-08 05:39] LABS: BASOPHILS % (AUTO) 0 % (0-1); EOSINOPHILS % (AUTO) 0 % (1-7); LYMPHOCYTES # (AUTO) 0.39 x10^3/uL (1-3.4); LYMPHOCYTES % (AUTO) 2 % (22-44); MD SCAN; MONOCYTES # (AUTO) 0.46 x10^3/uL (0.2-0.8); MONOCYTES % (AUTO) 3 % (2-9); NEUTROPHILS # (AUTO) 16.19 x10^3/uL (1.8-6.8); NEUTROPHILS % (AUTO) 95 % (42-75)
[2017-03-08 09:43] LABS: HIT RESULT POSITIVE (NEGATIVE)
[2017-03-08] MEDS: AMIODARONE 200 MG TABLET PO SCH (09:50)
[2017-03-08] MEDS: GABAPENTIN 250 MG/5 ML ORAL SOL PO SCH ×2 (09:50→22:59)
[2017-03-08] MEDS: METOPROLOL TARTRATE 25 MG TABLET PO SCH ×2 (09:50→22:59)
[2017-03-08] MEDS: LISINOPRIL 10 MG TABLET PO SCH ×2 (09:50→22:59)
[2017-03-08] MEDS: PAROXETINE 20 MG TABLET PO SCH (09:50)
[2017-03-08] MEDS: VALPROATE SODIUM 250 MG/5 ML ORAL SOLN PO SCH ×3 (09:51→22:59)
[2017-03-08] MEDS: SODIUM CHLORIDE 0.45% 1,000 ML IV SCH ×3 (09:53→23:01)
[2017-03-08] MEDS: LINEZOLID PMX 600MG/300ML 300 ML IV SCH ×2 (10:16→23:00)
[2017-03-08 21:02] VITALS: BP 115/76
[2017-03-08] MEDS: ATORVASTATIN 40 MG TABLET PO SCH (22:59)
[2017-03-08] MEDS: VANCOMYCIN 1,500 MG in SODIUM CHLORIDE 0.9% 250 ML IV SCH (23:21)
[2017-03-09 00:56] VITALS: BP 109/71
[2017-03-09] MEDS: INSULIN ASPART 100 UNITS/ML, PEN SQ-INSULIN SCH ×3 (04:37→16:47)
[2017-03-09 09:46] VITALS: BP 101/69
[2017-03-09] MEDS: PAROXETINE 20 MG TABLET PO SCH (09:48)
[2017-03-09] MEDS: LISINOPRIL 10 MG TABLET PO SCH ×2 (09:48→21:46)
[2017-03-09] MEDS: LINEZOLID PMX 600MG/300ML 300 ML IV SCH ×2 (09:48→21:45)
[2017-03-09] MEDS: GABAPENTIN 250 MG/5 ML ORAL SOL PO SCH ×2 (09:48→21:46)
[2017-03-09] MEDS: METOPROLOL TARTRATE 25 MG TABLET PO SCH ×2 (09:48→21:46)
[2017-03-09] MEDS: VALPROATE SODIUM 250 MG/5 ML ORAL SOLN PO SCH ×3 (09:48→21:46)
[2017-03-09] MEDS: AMIODARONE 200 MG TABLET PO SCH (09:48)
[2017-03-09 11:53] LABS: BASOPHILS # (AUTO) 0.01 x10^3/uL (0-0.1); BASOPHILS % (AUTO) 0 % (0-1); EOSINOPHILS # (AUTO) 0.04 x10^3/uL (0-0.4); EOSINOPHILS % (AUTO) 0 % (1-7); LYMPHOCYTES # (AUTO) 0.46 x10^3/uL (1-3.4); LYMPHOCYTES % (AUTO) 3 % (22-44); MD SCAN; MEAN CORPUSCULAR HEMOGLOBIN 32.7 pg (27.5-34.5); MEAN CORPUSCULAR HGB CONC 33.2 g/dL (33.2-36.2); MEAN CORPUSCULAR VOLUME 98.5 fL (81-97); MEAN PLATELET VOLUME 11.6 fL (7.4-10.4); MONOCYTES # (AUTO) 0.49 x10^3/uL (0.2-0.8); MONOCYTES % (AUTO) 3 % (2-9); NEUTROPHILS # (AUTO) 13.62 x10^3/uL (1.8-6.8); NEUTROPHILS % (AUTO) 93 % (42-75); PLATELET COUNT 42 x10^3/uL (130-400); RED CELL DISTRIBUTION WIDTH 16.1 % (9.4-14.8)
[2017-03-09] MEDS: SODIUM CHLORIDE 0.45% 1,000 ML IV SCH (11:59)
[2017-03-09 14:09] VITALS: BP 111/69
[2017-03-09 20:46] VITALS: BP 133/86
[2017-03-09] MEDS: ATORVASTATIN 40 MG TABLET PO SCH (21:46)
[2017-03-10] MEDS: VANCOMYCIN 1,500 MG in SODIUM CHLORIDE 0.9% 250 ML IV SCH (00:08)
[2017-03-10] MEDS: INSULIN ASPART 100 UNITS/ML, PEN SQ-INSULIN SCH ×4 (00:49→18:33)
[2017-03-10] MEDS ORDERED: ACETAMINOPHEN 650 MG SUPP PR PRN ×2 (03:30)
[2017-03-10] MEDS ORDERED: ACETAMINOPHEN 325 MG TABLET PO PRN ×2 (03:30)
[2017-03-10] MEDS ORDERED: HYDROcodone/APAP 5/325 TABLET PO PRN (03:30)
[2017-03-10] MEDS ORDERED: ONDANSETRON 2MG/ML, 2ML IVPush PRN ×2 (03:30)
[2017-03-10 03:48] VITALS: BP 99/63
[2017-03-10 05:32] LABS: MEAN CORPUSCULAR HEMOGLOBIN 32.8 pg (27.5-34.5); MEAN CORPUSCULAR HGB CONC 33.6 g/dL (33.2-36.2); MEAN CORPUSCULAR VOLUME 97.6 fL (81-97); RED BLOOD COUNT 3.35 x10^6/uL (4.38-5.82); RED CELL DISTRIBUTION WIDTH 15.9 % (9.4-14.8)
[2017-03-10 05:39] LABS: ALBUMIN 1.1 g/dL (3.4-5.0); ANION GAP 8 mmol/L (5-15); CALCIUM 6.8 mg/dL (8.5-10.1); CHLORIDE 117 mmol/L (98-107)
[2017-03-10 05:43] LABS: ALANINE AMINOTRANSFERASE 28 U/L (12-78); ALKALINE PHOSPHATASE 69 U/L (45-117); BILIRUBIN,TOTAL 0.9 mg/dL (0.2-1.0); CREATININE 1.57 mg/dL (0.7-1.3); TOTAL PROTEIN 5.6 g/dL (6.4-8.2)
[2017-03-10 06:16] LABS: MEAN PLATELET VOLUME 11.4 fL (7.4-10.4)
[2017-03-10 06:21] LABS: PLATELET COUNT 34 x10^3/uL (130-400)
[2017-03-10 06:22] LABS: ANISOCYTOSIS 1+; BASOPHILS # (AUTO) 0.01 x10^3/uL (0-0.1); BASOPHILS % (AUTO) 0 % (0-1); EOSINOPHILS # (AUTO) 0.07 x10^3/uL (0-0.4); EOSINOPHILS % (AUTO) 1 % (1-7); LYMPHOCYTES # (AUTO) 0.55 x10^3/uL (1-3.4); LYMPHOCYTES % (AUTO) 4 % (22-44); MD MORPH REVIEW ONLY; MONOCYTES # (AUTO) 0.13 x10^3/uL (0.2-0.8); MONOCYTES % (AUTO) 1 % (2-9); NEUTROPHILS % (AUTO) 95 % (42-75)
[2017-03-10 06:23] LABS: <PLATELET ESTIMATE> DECREASED; LARGE PLATELETS 1+; PMNS WITH VACUOLES 1+; TOXIC GRAN 1+
[2017-03-10 06:37] VITALS: BP 124/79
[2017-03-10] MEDS: SODIUM CHLORIDE 0.45% 1,000 ML IV SCH ×2 (06:41→17:48)
[2017-03-10] MEDS: morphine SULFATE 10 MG/ML, 1ML IVPush PRN ×2 (06:52→16:38)
[2017-03-10] MEDS: INSULIN DETEMIR 100 UNITS/ML, PEN SQ-INSULIN SCH ×2 (08:58→20:00)
[2017-03-10] MEDS ORDERED: SODIUM CHLORIDE 0.9%, 500ML IVBOLUS ONE (09:30)
[2017-03-10] MEDS ORDERED: RIFAMPIN 600 MG in SODIUM CHLORIDE 0.9% 100 ML IV SCH (10:00)
[2017-03-10] MEDS: METOPROLOL TARTRATE 25 MG TABLET PO SCH ×2 (10:15→21:00)
[2017-03-10] MEDS: AMIODARONE 200 MG TABLET PO SCH (10:15)
[2017-03-10] MEDS: VALPROATE SODIUM 250 MG/5 ML ORAL SOLN PO SCH ×3 (10:15→21:00)
[2017-03-10] MEDS: GABAPENTIN 250 MG/5 ML ORAL SOL PO SCH ×2 (10:16→21:00)
[2017-03-10] MEDS: PAROXETINE 20 MG TABLET PO SCH (10:16)
[2017-03-10] MEDS: LISINOPRIL 10 MG TABLET PO SCH ×2 (10:16→21:00)
[2017-03-10] MEDS ORDERED: INSULIN ASPART 100 UNITS/ML, PEN SQ-INSULIN SCH (11:00)
[2017-03-10] MEDS: DAPTOMYCIN 450 MG in SODIUM CHLORIDE 0.9% 100 ML IV SCH (11:11)
[2017-03-10 13:56] VITALS: BP 110/71
[2017-03-10 19:06] VITALS: BP 122/74
[2017-03-11] MEDS: morphine SULFATE 10 MG/ML, 1ML IVPush PRN (02:06)
[2017-03-11 02:09] VITALS: BP 84/52
[2017-03-11] MEDS: INSULIN ASPART 100 UNITS/ML, PEN SQ-INSULIN SCH ×5 (06:00→23:39)
[2017-03-11 06:15] LABS: CHLORIDE 113 mmol/L (98-107)
[2017-03-11 06:22] LABS: ALANINE AMINOTRANSFERASE 28 U/L (12-78); ALKALINE PHOSPHATASE 62 U/L (45-117); BILIRUBIN,TOTAL 1.2 mg/dL (0.2-1.0); CALCIUM 6.8 mg/dL (8.5-10.1); CREATININE 2.19 mg/dL (0.7-1.3); TOTAL PROTEIN 5.5 g/dL (6.4-8.2)
[2017-03-11 06:29] LABS: ANION GAP 8 mmol/L (5-15)
[2017-03-11 07:14] VITALS: BP 110/71
[2017-03-11] MEDS: ALBUMIN HUMAN 25% 100 ML IV SCH ×3 (07:38→23:37)
[2017-03-11 07:59] LABS: MEAN CORPUSCULAR HEMOGLOBIN 32.8 pg (27.5-34.5); MEAN CORPUSCULAR HGB CONC 33.7 g/dL (33.2-36.2); MEAN CORPUSCULAR VOLUME 97.4 fL (81-97); MEAN PLATELET VOLUME 11.7 fL (7.4-10.4); RED BLOOD COUNT 3.01 x10^6/uL (4.38-5.82); RED CELL DISTRIBUTION WIDTH 15.6 % (9.4-14.8)
[2017-03-11 08:00] LABS: PLATELET COUNT 31 x10^3/uL (130-400)
[2017-03-11 08:01] LABS: BASOPHILS # (AUTO) 0.01 x10^3/uL (0-0.1); BASOPHILS % (AUTO) 0 % (0-1); EOSINOPHILS # (AUTO) 0.08 x10^3/uL (0-0.4); EOSINOPHILS % (AUTO) 1 % (1-7); LYMPHOCYTES # (AUTO) 0.56 x10^3/uL (1-3.4); LYMPHOCYTES % (AUTO) 4 % (22-44); MD SCAN; MONOCYTES # (AUTO) 0.59 x10^3/uL (0.2-0.8); MONOCYTES % (AUTO) 4 % (2-9); NEUTROPHILS # (AUTO) 13.62 x10^3/uL (1.8-6.8); NEUTROPHILS % (AUTO) 92 % (42-75)
[2017-03-11] MEDS ORDERED: NOREPINEPHRINE 4 MG in SODIUM CHLORIDE 0.9% 246 ML IV PRN (09:00)
[2017-03-11 09:29] LABS: O2 FLOW 2 L/min
[2017-03-11] MEDS: VALPROATE SODIUM 250 MG/5 ML ORAL SOLN PO SCH ×3 (09:59→20:48)
[2017-03-11] MEDS: PAROXETINE 20 MG TABLET PO SCH (09:59)
[2017-03-11] MEDS: AMIODARONE 200 MG TABLET PO SCH (09:59)
[2017-03-11] MEDS: GABAPENTIN 250 MG/5 ML ORAL SOL PO SCH ×2 (09:59→20:47)
[2017-03-11] MEDS: INSULIN DETEMIR 100 UNITS/ML, PEN SQ-INSULIN SCH ×2 (10:02→20:47)
[2017-03-11] MEDS: FILTER 0.22 MICRON FOR AMIODARONE IV PRN (10:59)
[2017-03-11] MEDS ORDERED: AMIODARONE 150 MG in DEXTROSE 5% 100 ML IV ONE (11:00)
[2017-03-11] MEDS: AMIODARONE 900 MG in DEXTROSE 5% 482 ML IV PRN (11:07)
[2017-03-11] MEDS: DAPTOMYCIN 450 MG in SODIUM CHLORIDE 0.9% 100 ML IV SCH (12:09)
[2017-03-11] MEDS: CEFTAROLINE 300 MG in SODIUM CHLORIDE 0.9% 100 ML IV SCH ×2 (12:56→22:42)
[2017-03-11] MEDS ORDERED: LIDOCAINE 1%, 20ML ONE (14:17)
[2017-03-11 18:05] LABS: CELLS COUNTED 348
[2017-03-11] MEDS: SODIUM CHLORIDE 0.45% 1,000 ML IV SCH (19:50)
[2017-03-12 04:00] VITALS: BP 133/97
[2017-03-12] MEDS: SODIUM CHLORIDE 0.45% 1,000 ML IV SCH ×3 (04:07→21:15)
[2017-03-12] MEDS: AMIODARONE 900 MG in DEXTROSE 5% 482 ML IV PRN (06:29)
[2017-03-12] MEDS: INSULIN ASPART 100 UNITS/ML, PEN SQ-INSULIN SCH ×4 (06:29→23:49)
[2017-03-12] MEDS: FILTER 0.22 MICRON FOR AMIODARONE IV PRN ×2 (06:29→12:11)
[2017-03-12] MEDS: INSULIN DETEMIR 100 UNITS/ML, PEN SQ-INSULIN SCH ×2 (07:52→21:15)
[2017-03-12] MEDS: ALBUMIN HUMAN 25% 100 ML IV SCH ×3 (07:54→23:38)
[2017-03-12] MEDS: PAROXETINE 20 MG TABLET PO SCH (07:54)
[2017-03-12] MEDS: GABAPENTIN 250 MG/5 ML ORAL SOL PO SCH ×2 (07:54→21:16)
[2017-03-12] MEDS: VALPROATE SODIUM 250 MG/5 ML ORAL SOLN PO SCH ×3 (07:55→21:15)
[2017-03-12] MEDS: AMIODARONE 200 MG TABLET PO SCH (08:03)
[2017-03-12 08:26] LABS: MEAN CORPUSCULAR HEMOGLOBIN 32.6 pg (27.5-34.5); MEAN CORPUSCULAR HGB CONC 33.5 g/dL (33.2-36.2); MEAN CORPUSCULAR VOLUME 97.4 fL (81-97); RED BLOOD COUNT 2.89 x10^6/uL (4.38-5.82); RED CELL DISTRIBUTION WIDTH 15.7 % (9.4-14.8)
[2017-03-12 08:35] LABS: ANION GAP 11 mmol/L (5-15); CALCIUM 6.7 mg/dL (8.5-10.1); CHLORIDE 109 mmol/L (98-107); CREATININE 2.27 mg/dL (0.7-1.3)
[2017-03-12 09:01] LABS: MEAN PLATELET VOLUME 12.6 fL (7.4-10.4)
[2017-03-12 09:02] LABS: PLATELET COUNT 49 x10^3/uL (130-400)
[2017-03-12 09:04] LABS: BASOPHILS % (AUTO) 0 % (0-1); EOSINOPHILS # (AUTO) 0.09 x10^3/uL (0-0.4); EOSINOPHILS % (AUTO) 1 % (1-7); LYMPHOCYTES # (AUTO) 0.72 x10^3/uL (1-3.4); LYMPHOCYTES % (AUTO) 4 % (22-44); MD SCAN; MONOCYTES # (AUTO) 0.44 x10^3/uL (0.2-0.8); MONOCYTES % (AUTO) 3 % (2-9); NEUTROPHILS # (AUTO) 15.03 x10^3/uL (1.8-6.8); NEUTROPHILS % (AUTO) 92 % (42-75)
[2017-03-12] MEDS: CEFTAROLINE 300 MG in SODIUM CHLORIDE 0.9% 100 ML IV SCH ×2 (10:32→23:38)
[2017-03-12] MEDS ORDERED: AMIODARONE 150 MG in DEXTROSE 5% 100 ML IV ONE (11:30)
[2017-03-12] MEDS: DAPTOMYCIN 450 MG in SODIUM CHLORIDE 0.9% 100 ML IV SCH (12:56)
[2017-03-13 04:15] VITALS: BP 154/104
[2017-03-13 04:49] LABS: MEAN CORPUSCULAR HEMOGLOBIN 32.8 pg (27.5-34.5); MEAN CORPUSCULAR HGB CONC 33.9 g/dL (33.2-36.2); MEAN CORPUSCULAR VOLUME 96.8 fL (81-97); MEAN PLATELET VOLUME 13.2 fL (7.4-10.4); PLATELET COUNT 72 x10^3/uL (130-400); RED BLOOD COUNT 2.86 x10^6/uL (4.38-5.82); RED CELL DISTRIBUTION WIDTH 15.2 % (9.4-14.8)
[2017-03-13 04:50] LABS: ALBUMIN 2.3 g/dL (3.4-5.0); ANION GAP 8 mmol/L (5-15); CALCIUM 7.2 mg/dL (8.5-10.1); CHLORIDE 109 mmol/L (98-107)
[2017-03-13 04:54] LABS: ALANINE AMINOTRANSFERASE 17 U/L (12-78); ALKALINE PHOSPHATASE 50 U/L (45-117); BILIRUBIN,TOTAL 0.9 mg/dL (0.2-1.0); CREATININE 2.01 mg/dL (0.7-1.3); TOTAL PROTEIN 6.3 g/dL (6.4-8.2)
[2017-03-13 05:00] LABS: BASOPHILS % (AUTO) 0 % (0-1); EOSINOPHILS # (AUTO) 0.04 x10^3/uL (0-0.4); EOSINOPHILS % (AUTO) 0 % (1-7); LYMPHOCYTES # (AUTO) 0.46 x10^3/uL (1-3.4); LYMPHOCYTES % (AUTO) 2 % (22-44); MD SCAN; MONOCYTES # (AUTO) 0.46 x10^3/uL (0.2-0.8); MONOCYTES % (AUTO) 3 % (2-9); NEUTROPHILS # (AUTO) 17.78 x10^3/uL (1.8-6.8); NEUTROPHILS % (AUTO) 95 % (42-75)
[2017-03-13] MEDS: SODIUM CHLORIDE 0.45% 1,000 ML IV SCH (05:35)
[2017-03-13] MEDS: INSULIN ASPART 100 UNITS/ML, PEN SQ-INSULIN SCH ×4 (05:38→23:28)
[2017-03-13] MEDS: hydrALAzine 20 MG/ML, 1ML IVPush PRN (06:23)
[2017-03-13] MEDS ORDERED: FENTANYL PF 100 MCG/2ML ONE ×2 (07:48→09:09)
[2017-03-13] MEDS ORDERED: PROPOFOL 10 MG/ML, 20ML ONE (08:01)
[2017-03-13] MEDS ORDERED: ROCURONIUM 10 MG/ML,10ML ONE (08:01)
[2017-03-13] MEDS ORDERED: EPINEPHRINE 1 MG/ML, 1ML ONE (08:01)
[2017-03-13] MEDS ORDERED: VANCOMYCIN 500 MG ONE (08:35)
[2017-03-13] MEDS: AMIODARONE 200 MG TABLET PO SCH (10:16)
[2017-03-13] MEDS: VALPROATE SODIUM 250 MG/5 ML ORAL SOLN PO SCH ×3 (10:17→20:49)
[2017-03-13] MEDS: PAROXETINE 20 MG TABLET PO SCH (10:17)
[2017-03-13] MEDS: GABAPENTIN 250 MG/5 ML ORAL SOL PO SCH ×2 (10:17→20:49)
[2017-03-13] MEDS: INSULIN DETEMIR 100 UNITS/ML, PEN SQ-INSULIN SCH ×2 (10:51→20:47)
[2017-03-13] MEDS: ALBUMIN HUMAN 25% 100 ML IV SCH ×2 (11:15→18:29)
[2017-03-13] MEDS ORDERED: SODIUM CHLORIDE 0.9%, 500ML IVBOLUS ONE (12:00)
[2017-03-13] MEDS: CEFTAROLINE 300 MG in SODIUM CHLORIDE 0.9% 100 ML IV SCH ×2 (12:25→22:48)
[2017-03-13] MEDS: DAPTOMYCIN 450 MG in SODIUM CHLORIDE 0.9% 100 ML IV SCH (14:02)
[2017-03-13] MEDS ORDERED: SODIUM CHLORIDE 0.9% 1,000ML IVBOLUS ONE ×3 (15:30→21:30)
[2017-03-13] MEDS ORDERED: NOREPINEPHRINE 4 MG in SODIUM CHLORIDE 0.9% 246 ML IV PRN (16:48)
[2017-03-13] MEDS ORDERED: PHARMACY MAY ADJ FOR RENAL FX MC SCH (17:00)
[2017-03-13] MEDS ORDERED: SENNOSIDES 8.8 MG/5 ML ORAL SOL NG PRN (17:00)
[2017-03-13] MEDS ORDERED: LIDOCAINE-MPF 1%, 2ML ENDO PRN (17:00)
[2017-03-13] MEDS ORDERED: LACTULOSE 20 GM/30 ML UDC NG PRN (17:00)
[2017-03-13] MEDS ORDERED: BISACODYL 10 MG SUPP PR PRN (17:00)
[2017-03-13] MEDS: ALBUTEROL/IPRATROPIUM 2.5MG/0.5MG, 3 ML INLINE SCH ×2 (18:00→22:00)
[2017-03-13] MEDS: FAMOTIDINE 20 MG/2 ML IV SCH (20:50)
[2017-03-14] MEDS ORDERED: SODIUM CHLORIDE 0.9% 1,000ML IVBOLUS ONE
[2017-03-14] MEDS: ALBUTEROL/IPRATROPIUM 2.5MG/0.5MG, 3 ML INLINE SCH ×6 (02:00→22:06)
[2017-03-14] MEDS: ALBUMIN HUMAN 25% 100 ML IV SCH ×3 (03:31→19:42)
[2017-03-14 04:10] VITALS: BP 131/66
[2017-03-14 04:28] LABS: ALANINE AMINOTRANSFERASE 13 U/L (12-78); ALBUMIN 2.2 g/dL (3.4-5.0); ANION GAP 7 mmol/L (5-15); CALCIUM 6.8 mg/dL (8.5-10.1); CHLORIDE 114 mmol/L (98-107)
[2017-03-14 04:31] LABS: ALKALINE PHOSPHATASE 44 U/L (45-117); BILIRUBIN,TOTAL 0.4 mg/dL (0.2-1.0); CREATININE 2.06 mg/dL (0.7-1.3); TOTAL PROTEIN 5.5 g/dL (6.4-8.2)
[2017-03-14 05:20] LABS: BASOPHILS % (AUTO) 0 % (0-1); EOSINOPHILS # (AUTO) 0.08 x10^3/uL (0-0.4); EOSINOPHILS % (AUTO) 1 % (1-7); LYMPHOCYTES # (AUTO) 0.39 x10^3/uL (1-3.4); LYMPHOCYTES % (AUTO) 4 % (22-44); MD SCAN; MEAN CORPUSCULAR HEMOGLOBIN 32.2 pg (27.5-34.5); MEAN CORPUSCULAR HGB CONC 33.1 g/dL (33.2-36.2); MEAN CORPUSCULAR VOLUME 97.4 fL (81-97); MEAN PLATELET VOLUME 11.9 fL (7.4-10.4); MONOCYTES # (AUTO) 0.23 x10^3/uL (0.2-0.8); MONOCYTES % (AUTO) 2 % (2-9); NEUTROPHILS # (AUTO) 9.35 x10^3/uL (1.8-6.8); NEUTROPHILS % (AUTO) 93 % (42-75); PLATELET COUNT 69 x10^3/uL (130-400); RED BLOOD COUNT 2.44 x10^6/uL (4.38-5.82); RED CELL DISTRIBUTION WIDTH 15.7 % (9.4-14.8)
[2017-03-14] MEDS: INSULIN ASPART 100 UNITS/ML, PEN SQ-INSULIN SCH ×4 (05:34→23:40)
[2017-03-14] MEDS: AMIODARONE 200 MG TABLET PO SCH (07:39)
[2017-03-14] MEDS: PAROXETINE 20 MG TABLET PO SCH (07:39)
[2017-03-14] MEDS: FAMOTIDINE 20 MG/2 ML IV SCH ×2 (07:40→21:27)
[2017-03-14] MEDS: VALPROATE SODIUM 250 MG/5 ML ORAL SOLN PO SCH ×3 (07:40→21:27)
[2017-03-14] MEDS: GABAPENTIN 250 MG/5 ML ORAL SOL PO SCH ×2 (07:40→21:28)
[2017-03-14] MEDS: INSULIN DETEMIR 100 UNITS/ML, PEN SQ-INSULIN SCH ×2 (08:00→21:27)
[2017-03-14] MEDS: FENTANYL PF 100 MCG/2ML IVPush PRN ×4 (09:32→19:41)
[2017-03-14] MEDS: CEFTAROLINE 300 MG in SODIUM CHLORIDE 0.9% 100 ML IV SCH ×2 (11:15→23:30)
[2017-03-14] MEDS: DAPTOMYCIN 450 MG in SODIUM CHLORIDE 0.9% 100 ML IV SCH (14:28)
[2017-03-14] MEDS: SODIUM CHLORIDE FLUSH 10ML SYR IVF SCH (23:30)
[2017-03-15] VITALS (8 sets, daily range): BP systolic 120–147; BP diastolic 74–102
[2017-03-15] MEDS: ALBUTEROL/IPRATROPIUM 2.5MG/0.5MG, 3 ML INLINE SCH ×7 (02:00→22:40)
[2017-03-15] MEDS: MIDAZOLAM 1 MG/ML, 2ML IVPush PRN ×2 (02:23→23:07)
[2017-03-15] MEDS: ALBUMIN HUMAN 25% 100 ML IV SCH ×3 (03:29→20:01)
[2017-03-15 04:26] LABS: MEAN CORPUSCULAR HEMOGLOBIN 32.1 pg (27.5-34.5); MEAN CORPUSCULAR VOLUME 97.1 fL (81-97); MEAN PLATELET VOLUME 9.9 fL (7.4-10.4); PLATELET COUNT 118 x10^3/uL (130-400); RED BLOOD COUNT 2.07 x10^6/uL (4.38-5.82); RED CELL DISTRIBUTION WIDTH 15.9 % (9.4-14.8)
[2017-03-15 04:34] LABS: ANION GAP 8 mmol/L (5-15); CALCIUM 7.4 mg/dL (8.5-10.1); CHLORIDE 112 mmol/L (98-107); CREATININE 2.35 mg/dL (0.7-1.3)
[2017-03-15 04:40] LABS: BASOPHILS # (AUTO) 0.01 x10^3/uL (0-0.1); BASOPHILS % (AUTO) 0 % (0-1); EOSINOPHILS # (AUTO) 0.03 x10^3/uL (0-0.4); EOSINOPHILS % (AUTO) 0 % (1-7); LYMPHOCYTES # (AUTO) 0.41 x10^3/uL (1-3.4); LYMPHOCYTES % (AUTO) 3 % (22-44); MD SCAN; MONOCYTES # (AUTO) 0.23 x10^3/uL (0.2-0.8); MONOCYTES % (AUTO) 2 % (2-9); NEUTROPHILS # (AUTO) 11.25 x10^3/uL (1.8-6.8); NEUTROPHILS % (AUTO) 94 % (42-75)
[2017-03-15] MEDS ORDERED: SODIUM CHLORIDE 0.9% 500 ML IV SCH ×2 (04:50→22:00)
[2017-03-15] MEDS: INSULIN ASPART 100 UNITS/ML, PEN SQ-INSULIN SCH ×3 (06:49→18:00)
[2017-03-15] MEDS: INSULIN DETEMIR 100 UNITS/ML, PEN SQ-INSULIN SCH ×2 (08:33→21:43)
[2017-03-15] MEDS: AMIODARONE 200 MG TABLET PO SCH (09:55)
[2017-03-15] MEDS: PAROXETINE 20 MG TABLET PO SCH (09:56)
[2017-03-15] MEDS: VALPROATE SODIUM 250 MG/5 ML ORAL SOLN PO SCH ×3 (09:57→21:44)
[2017-03-15] MEDS: FAMOTIDINE 20 MG/2 ML IV SCH ×2 (09:57→21:43)
[2017-03-15] MEDS: GABAPENTIN 250 MG/5 ML ORAL SOL PO SCH ×2 (09:58→21:44)
[2017-03-15] MEDS ORDERED: AMIODARONE 150 MG in DEXTROSE 5% 100 ML IV ONE (10:00)
[2017-03-15] MEDS ORDERED: FILTER 0.22 MICRON IV ONE (10:30)
[2017-03-15] MEDS ORDERED: FUROSEMIDE 20 MG/2 ML IV ONE (12:15)
[2017-03-15] MEDS: CEFTAROLINE 400 MG in SODIUM CHLORIDE 0.9% 100 ML IV SCH ×2 (13:45→23:11)
[2017-03-15] MEDS: SODIUM CHLORIDE FLUSH 10ML SYR IVF SCH ×2 (14:41→21:44)
[2017-03-15] MEDS: DAPTOMYCIN 450 MG in SODIUM CHLORIDE 0.9% 100 ML IV SCH (14:42)
[2017-03-15 15:37] LABS: BASOPHILS % (AUTO) 0 % (0-1); EOSINOPHILS # (AUTO) 0.05 x10^3/uL (0-0.4); EOSINOPHILS % (AUTO) 0 % (1-7); LYMPHOCYTES # (AUTO) 0.45 x10^3/uL (1-3.4); LYMPHOCYTES % (AUTO) 4 % (22-44); MD NO; MEAN CORPUSCULAR HEMOGLOBIN 32.5 pg (27.5-34.5); MEAN CORPUSCULAR HGB CONC 34.4 g/dL (33.2-36.2); MEAN CORPUSCULAR VOLUME 94.6 fL (81-97); MEAN PLATELET VOLUME 9.9 fL (7.4-10.4); MONOCYTES # (AUTO) 0.31 x10^3/uL (0.2-0.8); MONOCYTES % (AUTO) 3 % (2-9); NEUTROPHILS # (AUTO) 9.83 x10^3/uL (1.8-6.8); NEUTROPHILS % (AUTO) 93 % (42-75); PLATELET COUNT 109 x10^3/uL (130-400); RED BLOOD COUNT 2.77 x10^6/uL (4.38-5.82); RED CELL DISTRIBUTION WIDTH 16.1 % (9.4-14.8)
[2017-03-15] MEDS: HYDROcodone/APAP 5/325 TABLET PO PRN (16:36)
[2017-03-15] MEDS ORDERED: NOREPINEPHRINE 4 MG in SODIUM CHLORIDE 0.9% 246 ML IV PRN (16:48)
[2017-03-15] MEDS: FENTANYL PF 100 MCG/2ML IVPush PRN (21:50)
[2017-03-16] MEDS: INSULIN ASPART 100 UNITS/ML, PEN SQ-INSULIN SCH ×4 (01:06→18:00)
[2017-03-16] MEDS: ALBUMIN HUMAN 25% 100 ML IV SCH ×3 (02:17→20:28)
[2017-03-16] MEDS: ALBUTEROL/IPRATROPIUM 2.5MG/0.5MG, 3 ML INLINE SCH ×6 (02:32→22:15)
[2017-03-16] MEDS: FENTANYL PF 100 MCG/2ML IVPush PRN ×2 (03:17→15:18)
[2017-03-16 04:30] VITALS: BP 122/84
[2017-03-16 04:46] LABS: BASOPHILS # (AUTO) 0.01 x10^3/uL (0-0.1); BASOPHILS % (AUTO) 0 % (0-1); EOSINOPHILS # (AUTO) 0.05 x10^3/uL (0-0.4); EOSINOPHILS % (AUTO) 1 % (1-7); LYMPHOCYTES # (AUTO) 0.36 x10^3/uL (1-3.4); LYMPHOCYTES % (AUTO) 4 % (22-44); MD NO; MEAN CORPUSCULAR HEMOGLOBIN 32.5 pg (27.5-34.5); MEAN CORPUSCULAR HGB CONC 34.2 g/dL (33.2-36.2); MEAN PLATELET VOLUME 9.6 fL (7.4-10.4); MONOCYTES # (AUTO) 0.27 x10^3/uL (0.2-0.8); MONOCYTES % (AUTO) 3 % (2-9); NEUTROPHILS # (AUTO) 8.94 x10^3/uL (1.8-6.8); NEUTROPHILS % (AUTO) 93 % (42-75); PLATELET COUNT 107 x10^3/uL (130-400); RED BLOOD COUNT 2.65 x10^6/uL (4.38-5.82); RED CELL DISTRIBUTION WIDTH 15.7 % (9.4-14.8)
[2017-03-16 04:58] LABS: ANION GAP 8 mmol/L (5-15); CALCIUM 7.7 mg/dL (8.5-10.1); CHLORIDE 112 mmol/L (98-107)
[2017-03-16 04:59] LABS: CREATININE 2.25 mg/dL (0.7-1.3); TRIGLYCERIDES 38 mg/dL (50-200)
[2017-03-16] MEDS ORDERED: SODIUM POLYSTYRENE SULFONATE ORAL SUSP PO ONE (07:30)
[2017-03-16] MEDS: INSULIN DETEMIR 100 UNITS/ML, PEN SQ-INSULIN SCH ×2 (07:56→19:51)
[2017-03-16] MEDS: SODIUM CHLORIDE FLUSH 10ML SYR IVF SCH ×2 (08:04→20:29)
[2017-03-16] MEDS ORDERED: ESMOLOL/NS PMX 250 ML IV PRN (09:30)
[2017-03-16] MEDS: PAROXETINE 20 MG TABLET PO SCH (09:53)
[2017-03-16] MEDS: VALPROATE SODIUM 250 MG/5 ML ORAL SOLN PO SCH ×3 (09:53→20:29)
[2017-03-16] MEDS: AMIODARONE 200 MG TABLET PO SCH (09:53)
[2017-03-16] MEDS: GABAPENTIN 250 MG/5 ML ORAL SOL PO SCH ×2 (09:53→20:30)
[2017-03-16] MEDS: CEFTAROLINE 400 MG in SODIUM CHLORIDE 0.9% 100 ML IV SCH ×2 (10:34→22:26)
[2017-03-16] MEDS: FUROSEMIDE 20 MG/2 ML IV SCH ×2 (11:42→22:23)
[2017-03-16] MEDS ORDERED: ADENOSINE 6 MG/2 ML ONE (13:18)
[2017-03-16] MEDS ORDERED: ADENOSINE 6 MG/2 ML IVPush ONE ×2 (13:30)
[2017-03-16] MEDS: DAPTOMYCIN 450 MG in SODIUM CHLORIDE 0.9% 100 ML IV SCH (13:50)
[2017-03-16] MEDS ORDERED: AMIODARONE 150 MG in DEXTROSE 5% 100 ML IV ONE (14:00)
[2017-03-16] MEDS ORDERED: FILTER 0.22 MICRON FOR AMIODARONE IV PRN (14:00)
[2017-03-16] MEDS: AMIODARONE 900 MG in DEXTROSE 5% 482 ML IV PRN (14:01)
[2017-03-16] MEDS: HYDROcodone/APAP 5/325 TABLET PO PRN (16:23)
[2017-03-16] MEDS: FAMOTIDINE 20 MG/2 ML IV SCH (21:32)
[2017-03-17] MEDS: ALBUTEROL/IPRATROPIUM 2.5MG/0.5MG, 3 ML INLINE SCH ×6 (02:15→21:52)
[2017-03-17 04:00] VITALS: BP 120/78
[2017-03-17 04:28] LABS: BASOPHILS % (AUTO) 0 % (0-1); EOSINOPHILS % (AUTO) 1 % (1-7); LYMPHOCYTES # (AUTO) 0.33 x10^3/uL (1-3.4); LYMPHOCYTES % (AUTO) 3 % (22-44); MD NO; MEAN CORPUSCULAR HEMOGLOBIN 32.4 pg (27.5-34.5); MEAN CORPUSCULAR HGB CONC 33.7 g/dL (33.2-36.2); MEAN CORPUSCULAR VOLUME 96.2 fL (81-97); MEAN PLATELET VOLUME 9.7 fL (7.4-10.4); MONOCYTES # (AUTO) 0.32 x10^3/uL (0.2-0.8); MONOCYTES % (AUTO) 3 % (2-9); NEUTROPHILS % (AUTO) 93 % (42-75); PLATELET COUNT 138 x10^3/uL (130-400); RED BLOOD COUNT 2.52 x10^6/uL (4.38-5.82); RED CELL DISTRIBUTION WIDTH 15.8 % (9.4-14.8)
[2017-03-17 04:37] LABS: ANION GAP 9 mmol/L (5-15); CALCIUM 7.7 mg/dL (8.5-10.1); CHLORIDE 112 mmol/L (98-107); CREATININE 2.19 mg/dL (0.7-1.3)
[2017-03-17] MEDS: INSULIN ASPART 100 UNITS/ML, PEN SQ-INSULIN SCH ×4 (06:00→15:53)
[2017-03-17] MEDS ORDERED: SODIUM POLYSTYRENE SULFONATE ORAL SUSP PO ONE (08:00)
[2017-03-17] MEDS ORDERED: DIGOXIN 0.25 MG/ML, 2ML IVPush ONE (08:30)
[2017-03-17] MEDS ORDERED: AMIODARONE 300 MG in DEXTROSE 5% 100 ML IV ONE (08:30)
[2017-03-17] MEDS: ALBUMIN HUMAN 25% 100 ML IV SCH ×2 (08:44→20:43)
[2017-03-17] MEDS: GABAPENTIN 250 MG/5 ML ORAL SOL PO SCH ×2 (08:45→20:44)
[2017-03-17] MEDS: VALPROATE SODIUM 250 MG/5 ML ORAL SOLN PO SCH ×3 (08:45→20:44)
[2017-03-17] MEDS: PAROXETINE 20 MG TABLET PO SCH (08:46)
[2017-03-17] MEDS: INSULIN DETEMIR 100 UNITS/ML, PEN SQ-INSULIN SCH ×2 (09:37→20:14)
[2017-03-17] MEDS: SODIUM CHLORIDE FLUSH 10ML SYR IVF SCH ×2 (09:38→20:43)
[2017-03-17] MEDS: FUROSEMIDE 20 MG/2 ML IV SCH ×2 (09:59→22:31)
[2017-03-17] MEDS: CEFTAROLINE 400 MG in SODIUM CHLORIDE 0.9% 100 ML IV SCH ×2 (10:52→22:52)
[2017-03-17] MEDS: DAPTOMYCIN 450 MG in SODIUM CHLORIDE 0.9% 100 ML IV SCH (13:01)
[2017-03-17] MEDS: AMIODARONE 900 MG in DEXTROSE 5% 482 ML IV PRN (13:01)
[2017-03-17] MEDS ORDERED: PHARMACY MAY ADJ FOR RENAL FX MC SCH (19:30)
[2017-03-17] MEDS ORDERED: BISACODYL 10 MG SUPP PR PRN (19:30)
[2017-03-17] MEDS ORDERED: ONDANSETRON 2MG/ML, 2ML IVPush PRN (19:30)
[2017-03-17] MEDS ORDERED: ACETAMINOPHEN 650 MG SUPP PR PRN (19:30)
[2017-03-17] MEDS ORDERED: LIDOCAINE-MPF 1%, 2ML ENDO PRN (19:30)
[2017-03-17] MEDS ORDERED: LACTULOSE 20 GM/30 ML UDC NG PRN (19:30)
[2017-03-17] MEDS ORDERED: ACETAMINOPHEN 325 MG TABLET PO PRN (19:30)
[2017-03-17] MEDS ORDERED: SODIUM CHLORIDE 0.9% 500 ML IV SCH (19:30)
[2017-03-17] MEDS: FAMOTIDINE 20 MG/2 ML IV SCH (21:33)
[2017-03-18] MEDS: INSULIN ASPART 100 UNITS/ML, PEN SQ-INSULIN SCH ×4 (00:25→16:51)
[2017-03-18] MEDS: ALBUTEROL/IPRATROPIUM 2.5MG/0.5MG, 3 ML INLINE SCH ×6 (02:48→22:00)
[2017-03-18 04:00] VITALS: BP 124/86
[2017-03-18 04:17] LABS: BASOPHILS % (AUTO) 0 % (0-1); EOSINOPHILS # (AUTO) 0.07 x10^3/uL (0-0.4); EOSINOPHILS % (AUTO) 1 % (1-7); HCT (SEDRATE) 24.6 % (39.2-51.8); LYMPHOCYTES # (AUTO) 0.35 x10^3/uL (1-3.4); LYMPHOCYTES % (AUTO) 4 % (22-44); MD NO; MEAN CORPUSCULAR HEMOGLOBIN 32.4 pg (27.5-34.5); MEAN CORPUSCULAR HGB CONC 33.5 g/dL (33.2-36.2); MEAN CORPUSCULAR VOLUME 96.6 fL (81-97); MEAN PLATELET VOLUME 9.6 fL (7.4-10.4); MONOCYTES # (AUTO) 0.35 x10^3/uL (0.2-0.8); MONOCYTES % (AUTO) 4 % (2-9); NEUTROPHILS # (AUTO) 8.49 x10^3/uL (1.8-6.8); NEUTROPHILS % (AUTO) 92 % (42-75); PLATELET COUNT 146 x10^3/uL (130-400); RED BLOOD COUNT 2.55 x10^6/uL (4.38-5.82)
[2017-03-18 04:29] LABS: ALBUMIN 2.8 g/dL (3.4-5.0); CHLORIDE 113 mmol/L (98-107)
[2017-03-18 04:37] LABS: ANION GAP 8 mmol/L (5-15); CALCIUM 7.2 mg/dL (8.5-10.1)
[2017-03-18 04:38] LABS: ALANINE AMINOTRANSFERASE 20 U/L (12-78); ALKALINE PHOSPHATASE 36 U/L (45-117); BILIRUBIN,TOTAL 0.5 mg/dL (0.2-1.0); CREATINE KINASE, TOTAL 31 U/L (39-308); TOTAL PROTEIN 6.2 g/dL (6.4-8.2)
[2017-03-18 04:50] LABS: SEDIMENTATION RATE 30 mm/hr (0-10)
[2017-03-18] MEDS: PAROXETINE 20 MG TABLET PO SCH (09:32)
[2017-03-18] MEDS: SENNA/DOCUSATE TABLET NG PRN (09:32)
[2017-03-18] MEDS: FONDAPARINUX 2.5 MG/0.5 ML SQ SCH (09:32)
[2017-03-18] MEDS: VALPROATE SODIUM 250 MG/5 ML ORAL SOLN PO SCH ×3 (09:32→20:33)
[2017-03-18] MEDS: FUROSEMIDE 20 MG/2 ML IV SCH ×2 (09:33→22:32)
[2017-03-18] MEDS: SODIUM CHLORIDE FLUSH 10ML SYR IVF SCH ×2 (09:34→20:32)
[2017-03-18] MEDS: ALBUMIN HUMAN 25% 100 ML IV SCH ×2 (09:34→20:32)
[2017-03-18] MEDS: DIGOXIN 0.25 MG/ML, 2ML IVPush SCH (09:34)
[2017-03-18] MEDS: GABAPENTIN 250 MG/5 ML ORAL SOL PO SCH ×2 (09:35→20:34)
[2017-03-18] MEDS: INSULIN DETEMIR 100 UNITS/ML, PEN SQ-INSULIN SCH ×2 (09:56→20:06)
[2017-03-18] MEDS: CEFTAROLINE 400 MG in SODIUM CHLORIDE 0.9% 100 ML IV SCH ×2 (11:14→22:36)
[2017-03-18] MEDS: METOPROLOL TARTRATE 25 MG TABLET PO/NG SCH ×2 (16:51→22:35)
[2017-03-18] MEDS: AMIODARONE 900 MG in DEXTROSE 5% 482 ML IV PRN (18:46)
[2017-03-18] MEDS: FAMOTIDINE 20 MG/2 ML IV SCH (22:02)
[2017-03-19] MEDS: ALBUTEROL/IPRATROPIUM 2.5MG/0.5MG, 3 ML INLINE SCH ×6 (02:00→21:16)
[2017-03-19 04:00] VITALS: BP 120/81
[2017-03-19 04:34] LABS: BASOPHILS # (AUTO) 0.01 x10^3/uL (0-0.1); BASOPHILS % (AUTO) 0 % (0-1); EOSINOPHILS # (AUTO) 0.09 x10^3/uL (0-0.4); EOSINOPHILS % (AUTO) 1 % (1-7); LYMPHOCYTES # (AUTO) 0.39 x10^3/uL (1-3.4); LYMPHOCYTES % (AUTO) 5 % (22-44); MD NO; MEAN CORPUSCULAR HEMOGLOBIN 32.3 pg (27.5-34.5); MEAN CORPUSCULAR HGB CONC 33.7 g/dL (33.2-36.2); MEAN PLATELET VOLUME 9.2 fL (7.4-10.4); MONOCYTES # (AUTO) 0.32 x10^3/uL (0.2-0.8); MONOCYTES % (AUTO) 4 % (2-9); NEUTROPHILS # (AUTO) 7.52 x10^3/uL (1.8-6.8); NEUTROPHILS % (AUTO) 90 % (42-75); PLATELET COUNT 173 x10^3/uL (130-400); RED BLOOD COUNT 2.55 x10^6/uL (4.38-5.82); RED CELL DISTRIBUTION WIDTH 15.3 % (9.4-14.8)
[2017-03-19 04:47] LABS: ANION GAP 10 mmol/L (5-15); CHLORIDE 111 mmol/L (98-107)
[2017-03-19 05:05] LABS: CREATININE 1.74 mg/dL (0.7-1.3); TRIGLYCERIDES 38 mg/dL (50-200)
[2017-03-19] MEDS: METOPROLOL TARTRATE 25 MG TABLET PO/NG SCH ×2 (05:23→18:41)
[2017-03-19] MEDS: INSULIN ASPART 100 UNITS/ML, PEN SQ-INSULIN SCH ×4 (06:00→16:37)
[2017-03-19] MEDS: ALBUMIN HUMAN 25% 100 ML IV SCH ×2 (09:29→21:09)
[2017-03-19] MEDS: INSULIN DETEMIR 100 UNITS/ML, PEN SQ-INSULIN SCH ×2 (09:47→21:09)
[2017-03-19] MEDS: SODIUM CHLORIDE FLUSH 10ML SYR IVF SCH ×2 (09:47→21:09)
[2017-03-19] MEDS: FUROSEMIDE 20 MG/2 ML IV SCH ×2 (09:48→22:35)
[2017-03-19] MEDS: GABAPENTIN 250 MG/5 ML ORAL SOL PO SCH ×2 (09:48→21:09)
[2017-03-19] MEDS: FONDAPARINUX 2.5 MG/0.5 ML SQ SCH (09:48)
[2017-03-19] MEDS: DIGOXIN 0.25 MG/ML, 2ML IVPush SCH (09:48)
[2017-03-19] MEDS: VALPROATE SODIUM 250 MG/5 ML ORAL SOLN PO SCH ×3 (09:48→21:09)
[2017-03-19] MEDS: PAROXETINE 20 MG TABLET PO SCH (09:48)
[2017-03-19] MEDS: CEFTAROLINE 400 MG in SODIUM CHLORIDE 0.9% 100 ML IV SCH ×2 (11:18→22:35)
[2017-03-19] MEDS: DAPTOMYCIN 700 MG in SODIUM CHLORIDE 0.9% 100 ML IV SCH (12:33)
[2017-03-19] MEDS ORDERED: METOPROLOL TARTRATE 25 MG TABLET PO/NG SCH (13:00)
[2017-03-19] MEDS: FAMOTIDINE 20 MG/2 ML IV SCH (21:09)
[2017-03-20] MEDS: METOPROLOL TARTRATE 25 MG TABLET PO/NG SCH ×4 (01:07→18:42)
[2017-03-20] MEDS: ALBUTEROL/IPRATROPIUM 2.5MG/0.5MG, 3 ML INLINE SCH ×6 (02:00→22:35)
[2017-03-20] MEDS: AMIODARONE 900 MG in DEXTROSE 5% 482 ML IV PRN (02:03)
[2017-03-20 04:00] VITALS: BP 124/57
[2017-03-20 04:38] LABS: BASOPHILS # (AUTO) 0.01 x10^3/uL (0-0.1); BASOPHILS % (AUTO) 0 % (0-1); EOSINOPHILS # (AUTO) 0.07 x10^3/uL (0-0.4); EOSINOPHILS % (AUTO) 1 % (1-7); LYMPHOCYTES # (AUTO) 0.37 x10^3/uL (1-3.4); LYMPHOCYTES % (AUTO) 4 % (22-44); MD NO; MEAN CORPUSCULAR HEMOGLOBIN 32.6 pg (27.5-34.5); MEAN CORPUSCULAR HGB CONC 33.5 g/dL (33.2-36.2); MEAN CORPUSCULAR VOLUME 97.3 fL (81-97); MEAN PLATELET VOLUME 9.5 fL (7.4-10.4); MONOCYTES # (AUTO) 0.27 x10^3/uL (0.2-0.8); MONOCYTES % (AUTO) 3 % (2-9); NEUTROPHILS # (AUTO) 9.14 x10^3/uL (1.8-6.8); NEUTROPHILS % (AUTO) 93 % (42-75); PLATELET COUNT 159 x10^3/uL (130-400); RED BLOOD COUNT 2.49 x10^6/uL (4.38-5.82)
[2017-03-20] MEDS: INSULIN ASPART 100 UNITS/ML, PEN SQ-INSULIN SCH ×5 (04:43→23:00)
[2017-03-20 04:54] LABS: CHLORIDE 112 mmol/L (98-107)
[2017-03-20 04:58] LABS: ANION GAP 8 mmol/L (5-15); CALCIUM 7.4 mg/dL (8.5-10.1); CREATININE 1.71 mg/dL (0.7-1.3)
[2017-03-20] MEDS ORDERED: DIGOXIN 0.25 MG/ML, 2ML IVPush SCH (09:00)
[2017-03-20] MEDS: INSULIN DETEMIR 100 UNITS/ML, PEN SQ-INSULIN SCH ×2 (09:50→20:21)
[2017-03-20] MEDS: ALBUMIN HUMAN 25% 100 ML IV SCH ×2 (09:50→21:01)
[2017-03-20] MEDS: PAROXETINE 20 MG TABLET PO SCH (09:51)
[2017-03-20] MEDS: SODIUM CHLORIDE FLUSH 10ML SYR IVF SCH ×2 (09:51→20:21)
[2017-03-20] MEDS: GABAPENTIN 250 MG/5 ML ORAL SOL PO SCH ×2 (09:51→21:00)
[2017-03-20] MEDS: FONDAPARINUX 2.5 MG/0.5 ML SQ SCH (09:51)
[2017-03-20] MEDS: VALPROATE SODIUM 250 MG/5 ML ORAL SOLN PO SCH ×3 (09:51→21:00)
[2017-03-20] MEDS: DAPTOMYCIN 700 MG in SODIUM CHLORIDE 0.9% 100 ML IV SCH (11:12)
[2017-03-20] MEDS: FUROSEMIDE 20 MG/2 ML IV SCH ×2 (11:12→22:00)
[2017-03-20] MEDS: CEFTAROLINE 400 MG in SODIUM CHLORIDE 0.9% 100 ML IV SCH ×2 (12:50→23:12)
[2017-03-20] MEDS: FAMOTIDINE 20 MG/2 ML IV SCH (21:01)
[2017-03-21] MEDS: METOPROLOL TARTRATE 25 MG TABLET PO/NG SCH ×4 (02:22→19:47)
[2017-03-21] MEDS: ALBUTEROL/IPRATROPIUM 2.5MG/0.5MG, 3 ML INLINE SCH ×6 (03:32→22:00)
[2017-03-21 04:00] VITALS: BP 118/65
[2017-03-21 04:35] LABS: BASOPHILS # (AUTO) 0.01 x10^3/uL (0-0.1); BASOPHILS % (AUTO) 0 % (0-1); EOSINOPHILS # (AUTO) 0.08 x10^3/uL (0-0.4); EOSINOPHILS % (AUTO) 1 % (1-7); LYMPHOCYTES # (AUTO) 0.35 x10^3/uL (1-3.4); LYMPHOCYTES % (AUTO) 4 % (22-44); MD NO; MEAN CORPUSCULAR HEMOGLOBIN 32.1 pg (27.5-34.5); MEAN CORPUSCULAR HGB CONC 33.1 g/dL (33.2-36.2); MEAN CORPUSCULAR VOLUME 97.2 fL (81-97); MEAN PLATELET VOLUME 9.1 fL (7.4-10.4); MONOCYTES # (AUTO) 0.36 x10^3/uL (0.2-0.8); MONOCYTES % (AUTO) 5 % (2-9); NEUTROPHILS # (AUTO) 7.08 x10^3/uL (1.8-6.8); NEUTROPHILS % (AUTO) 90 % (42-75); PLATELET COUNT 136 x10^3/uL (130-400); RED BLOOD COUNT 2.38 x10^6/uL (4.38-5.82); RED CELL DISTRIBUTION WIDTH 15.6 % (9.4-14.8)
[2017-03-21 04:38] LABS: ANION GAP 9 mmol/L (5-15); CALCIUM 7.3 mg/dL (8.5-10.1); CHLORIDE 113 mmol/L (98-107); CREATININE 1.76 mg/dL (0.7-1.3)
[2017-03-21] MEDS: INSULIN ASPART 100 UNITS/ML, PEN SQ-INSULIN SCH ×4 (04:40→23:00)
[2017-03-21] MEDS: INSULIN DETEMIR 100 UNITS/ML, PEN SQ-INSULIN SCH ×2 (09:42→19:50)
[2017-03-21] MEDS: ALBUMIN HUMAN 25% 100 ML IV SCH ×2 (09:43→20:21)
[2017-03-21] MEDS: SODIUM CHLORIDE FLUSH 10ML SYR IVF SCH ×2 (09:44→20:21)
[2017-03-21] MEDS: VALPROATE SODIUM 250 MG/5 ML ORAL SOLN PO SCH ×3 (09:45→20:21)
[2017-03-21] MEDS: PAROXETINE 20 MG TABLET PO SCH (09:46)
[2017-03-21] MEDS: GABAPENTIN 250 MG/5 ML ORAL SOL PO SCH ×2 (09:46→20:22)
[2017-03-21] MEDS: FONDAPARINUX 2.5 MG/0.5 ML SQ SCH (09:47)
[2017-03-21] MEDS: HYDROcodone/APAP 5/325 TABLET PO PRN ×2 (09:57→23:49)
[2017-03-21] MEDS ORDERED: RIFAMPIN 600 MG IV SCH (10:30)
[2017-03-21] MEDS: CEFTAROLINE 400 MG in SODIUM CHLORIDE 0.9% 100 ML IV SCH ×2 (10:54→22:41)
[2017-03-21] MEDS: FUROSEMIDE 40 MG/4 ML IV SCH ×2 (10:55→22:30)
[2017-03-21] MEDS: DAPTOMYCIN 700 MG in SODIUM CHLORIDE 0.9% 100 ML IV SCH (12:20)
[2017-03-21] MEDS: RIFAMPIN 600 MG in SODIUM CHLORIDE 0.9% 100 ML IV SCH (15:06)
[2017-03-21 16:25] LABS: CLOSTRIDIUM DIFFICILE ANTIGEN POSITIVE; CLOSTRIDIUM DIFFICILE TOXIN NEGATIVE (Negative)
[2017-03-21] MEDS: VANCOMYCIN 50 MG/ML ORAL SUSP PO SCH ×2 (17:29→23:49)
[2017-03-21] MEDS: FAMOTIDINE 20 MG/2 ML IV SCH (20:22)
[2017-03-22] MEDS: METOPROLOL TARTRATE 25 MG TABLET PO/NG SCH (01:59)
[2017-03-22] MEDS: ALBUTEROL/IPRATROPIUM 2.5MG/0.5MG, 3 ML INLINE SCH ×6 (02:00→22:00)
[2017-03-22 04:00] VITALS: BP 120/74
[2017-03-22] MEDS: INSULIN ASPART 100 UNITS/ML, PEN SQ-INSULIN SCH ×4 (04:42→22:59)
[2017-03-22 04:45] LABS: BASOPHILS % (AUTO) 0 % (0-1); EOSINOPHILS # (AUTO) 0.05 x10^3/uL (0-0.4); EOSINOPHILS % (AUTO) 0 % (1-7); LYMPHOCYTES # (AUTO) 0.35 x10^3/uL (1-3.4); LYMPHOCYTES % (AUTO) 3 % (22-44); MD NO; MEAN CORPUSCULAR HEMOGLOBIN 32.4 pg (27.5-34.5); MEAN CORPUSCULAR HGB CONC 33.3 g/dL (33.2-36.2); MEAN CORPUSCULAR VOLUME 97.3 fL (81-97); MONOCYTES # (AUTO) 0.52 x10^3/uL (0.2-0.8); MONOCYTES % (AUTO) 4 % (2-9); NEUTROPHILS # (AUTO) 11.07 x10^3/uL (1.8-6.8); NEUTROPHILS % (AUTO) 92 % (42-75); PLATELET COUNT 111 x10^3/uL (130-400); RED BLOOD COUNT 2.38 x10^6/uL (4.38-5.82); RED CELL DISTRIBUTION WIDTH 15.6 % (9.4-14.8)
[2017-03-22 04:50] LABS: ALBUMIN 2.9 g/dL (3.4-5.0); ANION GAP 9 mmol/L (5-15); CALCIUM 8.1 mg/dL (8.5-10.1); CHLORIDE 112 mmol/L (98-107)
[2017-03-22 05:08] LABS: ALANINE AMINOTRANSFERASE 66 U/L (12-78); ALKALINE PHOSPHATASE 43 U/L (45-117); CREATININE 1.68 mg/dL (0.7-1.3); TOTAL PROTEIN 6.6 g/dL (6.4-8.2); TRIGLYCERIDES 37 mg/dL (50-200)
[2017-03-22] MEDS: VANCOMYCIN 50 MG/ML ORAL SUSP PO SCH ×3 (06:10→19:45)
[2017-03-22] MEDS ORDERED: METOPROLOL TARTRATE 25 MG TABLET PO SCH (09:30)
[2017-03-22] MEDS: PAROXETINE 20 MG TABLET PO SCH (09:36)
[2017-03-22] MEDS: VALPROATE SODIUM 250 MG/5 ML ORAL SOLN PO SCH ×3 (09:37→20:30)
[2017-03-22] MEDS: FONDAPARINUX 2.5 MG/0.5 ML SQ SCH (09:37)
[2017-03-22] MEDS: GABAPENTIN 250 MG/5 ML ORAL SOL PO SCH ×2 (09:37→20:30)
[2017-03-22] MEDS: INSULIN DETEMIR 100 UNITS/ML, PEN SQ-INSULIN SCH ×2 (09:40→19:47)
[2017-03-22] MEDS: SODIUM CHLORIDE FLUSH 10ML SYR IVF SCH ×2 (09:40→20:30)
[2017-03-22] MEDS: DAPTOMYCIN 700 MG in SODIUM CHLORIDE 0.9% 100 ML IV SCH (10:42)
[2017-03-22] MEDS: CEFTAROLINE 400 MG in SODIUM CHLORIDE 0.9% 100 ML IV SCH ×2 (11:14→22:50)
[2017-03-22] MEDS: RIFAMPIN 600 MG in SODIUM CHLORIDE 0.9% 100 ML IV SCH (11:15)
[2017-03-22 12:10] LABS: INTERNATIONAL NORMALIZED RATIO 1.26 (0.93-1.1); PROTHROMBIN TIME 13.1 Seconds (9.6-11.5)
[2017-03-22] MEDS ORDERED: SODIUM CHLORIDE 0.9% 500 ML IV ONE (14:30)
[2017-03-22 14:39] VITALS: BP 70/38
[2017-03-22 14:55] VITALS: BP 111/57
[2017-03-22 15:10] VITALS: BP 106/56
[2017-03-22 16:19] VITALS: BP 108/61
[2017-03-22] MEDS: METOPROLOL TARTRATE 25 MG TABLET PO SCH (16:52)
[2017-03-22] MEDS ORDERED: GADOBUTROL 7.5 MMOL/7.5 ML PFS ONE (18:09)
[2017-03-22] MEDS: FAMOTIDINE 20 MG/2 ML IV SCH (22:49)
[2017-03-23] MEDS: VANCOMYCIN 50 MG/ML ORAL SUSP PO SCH ×5 (00:02→23:52)
[2017-03-23] MEDS: METOPROLOL TARTRATE 25 MG TABLET PO SCH ×3 (01:30→17:43)
[2017-03-23] MEDS: ALBUTEROL/IPRATROPIUM 2.5MG/0.5MG, 3 ML INLINE SCH ×6 (02:00→22:51)
[2017-03-23 04:00] VITALS: BP 117/63
[2017-03-23 04:43] LABS: ANION GAP 7 mmol/L (5-15); CALCIUM 7.7 mg/dL (8.5-10.1); CHLORIDE 113 mmol/L (98-107)
[2017-03-23 04:47] LABS: MEAN CORPUSCULAR HEMOGLOBIN 32.5 pg (27.5-34.5); MEAN CORPUSCULAR HGB CONC 33.5 g/dL (33.2-36.2); MEAN CORPUSCULAR VOLUME 97.1 fL (81-97); MEAN PLATELET VOLUME 9.5 fL (7.4-10.4); PLATELET COUNT 99 x10^3/uL (130-400); RED BLOOD COUNT 2.37 x10^6/uL (4.38-5.82); RED CELL DISTRIBUTION WIDTH 16.7 % (9.4-14.8)
[2017-03-23] MEDS: INSULIN ASPART 100 UNITS/ML, PEN SQ-INSULIN SCH ×4 (04:53→22:30)
[2017-03-23 05:38] LABS: BASOPHILS # (AUTO) 0.01 x10^3/uL (0-0.1); BASOPHILS % (AUTO) 0 % (0-1); EOSINOPHILS # (AUTO) 0.08 x10^3/uL (0-0.4); EOSINOPHILS % (AUTO) 1 % (1-7); LYMPHOCYTES % (AUTO) 7 % (22-44); MD SCAN; MONOCYTES # (AUTO) 0.44 x10^3/uL (0.2-0.8); MONOCYTES % (AUTO) 6 % (2-9); NEUTROPHILS # (AUTO) 6.01 x10^3/uL (1.8-6.8); NEUTROPHILS % (AUTO) 85 % (42-75)
[2017-03-23] MEDS: SODIUM CHLORIDE FLUSH 10ML SYR IVF SCH ×2 (09:49→20:37)
[2017-03-23] MEDS: INSULIN DETEMIR 100 UNITS/ML, PEN SQ-INSULIN SCH ×2 (09:51→20:12)
[2017-03-23] MEDS: VALPROATE SODIUM 250 MG/5 ML ORAL SOLN PO SCH ×3 (09:51→20:37)
[2017-03-23] MEDS: GABAPENTIN 250 MG/5 ML ORAL SOL PO SCH ×2 (09:51→20:37)
[2017-03-23] MEDS: PAROXETINE 20 MG TABLET PO SCH (09:52)
[2017-03-23] MEDS: CEFTAROLINE 400 MG in SODIUM CHLORIDE 0.9% 100 ML IV SCH ×2 (11:37→22:30)
[2017-03-23] MEDS: DAPTOMYCIN 700 MG in SODIUM CHLORIDE 0.9% 100 ML IV SCH (11:37)
[2017-03-23] MEDS: RIFAMPIN 600 MG in SODIUM CHLORIDE 0.9% 100 ML IV SCH (12:44)
[2017-03-23] MEDS: HYDROcodone/APAP 5/325 TABLET PO PRN (18:44)
[2017-03-23] MEDS: FAMOTIDINE 20 MG/2 ML IV SCH (20:47)
[2017-03-24] MEDS: METOPROLOL TARTRATE 25 MG TABLET PO SCH ×3 (01:44→18:18)
[2017-03-24] MEDS: ALBUTEROL/IPRATROPIUM 2.5MG/0.5MG, 3 ML INLINE SCH ×6 (02:31→22:20)
[2017-03-24 04:00] VITALS: BP 122/76
[2017-03-24 04:53] LABS: MEAN CORPUSCULAR HEMOGLOBIN 32.1 pg (27.5-34.5); MEAN CORPUSCULAR HGB CONC 32.9 g/dL (33.2-36.2); MEAN CORPUSCULAR VOLUME 97.6 fL (81-97); MEAN PLATELET VOLUME 9.5 fL (7.4-10.4); PLATELET COUNT 88 x10^3/uL (130-400); RED BLOOD COUNT 2.28 x10^6/uL (4.38-5.82); RED CELL DISTRIBUTION WIDTH 16.6 % (9.4-14.8)
[2017-03-24 04:54] LABS: ANION GAP 8 mmol/L (5-15); CALCIUM 7.2 mg/dL (8.5-10.1); CHLORIDE 113 mmol/L (98-107); CREATININE 1.81 mg/dL (0.7-1.3)
[2017-03-24 05:39] LABS: BASOPHILS # (AUTO) 0.03 x10^3/uL (0-0.1); BASOPHILS % (AUTO) 0 % (0-1); EOSINOPHILS # (AUTO) 0.14 x10^3/uL (0-0.4); EOSINOPHILS % (AUTO) 2 % (1-7); LYMPHOCYTES # (AUTO) 0.48 x10^3/uL (1-3.4); LYMPHOCYTES % (AUTO) 8 % (22-44); MD SCAN; MONOCYTES # (AUTO) 0.37 x10^3/uL (0.2-0.8); MONOCYTES % (AUTO) 6 % (2-9); NEUTROPHILS # (AUTO) 5.34 x10^3/uL (1.8-6.8); NEUTROPHILS % (AUTO) 84 % (42-75)
[2017-03-24] MEDS: INSULIN ASPART 100 UNITS/ML, PEN SQ-INSULIN SCH ×4 (06:48→23:27)
[2017-03-24] MEDS: VANCOMYCIN 50 MG/ML ORAL SUSP PO SCH (06:51)
[2017-03-24] MEDS: INSULIN DETEMIR 100 UNITS/ML, PEN SQ-INSULIN SCH ×2 (08:16→21:11)
[2017-03-24] MEDS: GABAPENTIN 250 MG/5 ML ORAL SOL PO SCH ×2 (08:22→21:12)
[2017-03-24] MEDS: VALPROATE SODIUM 250 MG/5 ML ORAL SOLN PO SCH ×3 (08:22→21:11)
[2017-03-24] MEDS: SODIUM CHLORIDE FLUSH 10ML SYR IVF SCH ×2 (08:22→21:11)
[2017-03-24] MEDS: PAROXETINE 20 MG TABLET PO SCH (10:30)
[2017-03-24] MEDS: CEFTAROLINE 400 MG in SODIUM CHLORIDE 0.9% 100 ML IV SCH ×2 (11:01→23:22)
[2017-03-24] MEDS: DAPTOMYCIN 700 MG in SODIUM CHLORIDE 0.9% 100 ML IV SCH (13:09)
[2017-03-24] MEDS: RIFAMPIN 600 MG in SODIUM CHLORIDE 0.9% 100 ML IV SCH (13:10)
[2017-03-24] MEDS: DEXAMETHASONE 4 MG/ML, 1ML IVPush SCH ×2 (15:59→20:19)
[2017-03-24] MEDS ORDERED: ACETAMINOPHEN 325 MG TABLET PO PRN (16:00)
[2017-03-24] MEDS ORDERED: BISACODYL 10 MG SUPP PR PRN (16:00)
[2017-03-24] MEDS ORDERED: ACETAMINOPHEN 650 MG SUPP PR PRN (16:00)
[2017-03-24] MEDS ORDERED: LIDOCAINE-MPF 1%, 2ML ENDO PRN (16:00)
[2017-03-24] MEDS ORDERED: LACTULOSE 20 GM/30 ML UDC NG PRN (16:00)
[2017-03-24] MEDS ORDERED: METOPROLOL TARTRATE 25 MG TABLET NG ONE (19:30)
[2017-03-24] MEDS: METOPROLOL 1 MG/ML, 5ML IVPush PRN (23:04)
[2017-03-24] MEDS: FAMOTIDINE 20 MG/2 ML IV SCH (23:21)
[2017-03-25] MEDS ORDERED: METOPROLOL TARTRATE 50 MG TABLET ONE (01:49)
[2017-03-25] MEDS: METOPROLOL TARTRATE 25 MG TABLET PO SCH ×3 (01:54→16:51)
[2017-03-25] MEDS: DEXAMETHASONE 4 MG/ML, 1ML IVPush SCH ×4 (01:55→20:57)
[2017-03-25] MEDS: ALBUTEROL/IPRATROPIUM 2.5MG/0.5MG, 3 ML INLINE SCH ×6 (02:15→22:00)
[2017-03-25] MEDS: morphine SULFATE 10 MG/ML, 1ML IVPush PRN (02:52)
[2017-03-25 04:00] VITALS: BP 138/72
[2017-03-25 04:27] LABS: MEAN CORPUSCULAR HEMOGLOBIN 32.8 pg (27.5-34.5); MEAN CORPUSCULAR HGB CONC 34.1 g/dL (33.2-36.2); MEAN CORPUSCULAR VOLUME 96.1 fL (81-97); MEAN PLATELET VOLUME 9.7 fL (7.4-10.4); PLATELET COUNT 94 x10^3/uL (130-400); RED BLOOD COUNT 2.28 x10^6/uL (4.38-5.82); RED CELL DISTRIBUTION WIDTH 16.6 % (9.4-14.8)
[2017-03-25 04:35] LABS: ANION GAP 8 mmol/L (5-15); CALCIUM 7.7 mg/dL (8.5-10.1); CHLORIDE 114 mmol/L (98-107); CREATININE 1.71 mg/dL (0.7-1.3); TRIGLYCERIDES 50 mg/dL (50-200)
[2017-03-25 05:37] LABS: BASOPHILS % (AUTO) 0 % (0-1); EOSINOPHILS % (AUTO) 0 % (1-7); LYMPHOCYTES # (AUTO) 0.25 x10^3/uL (1-3.4); LYMPHOCYTES % (AUTO) 3 % (22-44); MD SCAN; MONOCYTES # (AUTO) 0.14 x10^3/uL (0.2-0.8); MONOCYTES % (AUTO) 2 % (2-9); NEUTROPHILS # (AUTO) 6.92 x10^3/uL (1.8-6.8); NEUTROPHILS % (AUTO) 95 % (42-75)
[2017-03-25] MEDS: INSULIN ASPART 100 UNITS/ML, PEN SQ-INSULIN SCH ×4 (05:40→23:13)
[2017-03-25] MEDS ORDERED: SODIUM POLYSTYRENE SULFONATE ORAL SUSP PO ONE (08:00)
[2017-03-25] MEDS: INSULIN DETEMIR 100 UNITS/ML, PEN SQ-INSULIN SCH ×2 (08:00→23:12)
[2017-03-25] MEDS: VALPROATE SODIUM 250 MG/5 ML ORAL SOLN PO SCH ×3 (09:54→20:57)
[2017-03-25] MEDS: GABAPENTIN 250 MG/5 ML ORAL SOL PO SCH ×2 (09:55→20:57)
[2017-03-25] MEDS: PAROXETINE 20 MG TABLET PO SCH (09:55)
[2017-03-25] MEDS: CEFTAROLINE 400 MG in SODIUM CHLORIDE 0.9% 100 ML IV SCH ×2 (10:05→23:13)
[2017-03-25] MEDS: SODIUM CHLORIDE FLUSH 10ML SYR IVF SCH ×2 (10:12→20:58)
[2017-03-25] MEDS: DAPTOMYCIN 700 MG in SODIUM CHLORIDE 0.9% 100 ML IV SCH (11:55)
[2017-03-25] MEDS: RIFAMPIN 600 MG in SODIUM CHLORIDE 0.9% 100 ML IV SCH (15:09)
[2017-03-25] MEDS: METOPROLOL 1 MG/ML, 5ML IVPush PRN ×2 (18:01→21:23)
[2017-03-25] MEDS: FAMOTIDINE 20 MG/2 ML IV SCH (20:57)
[2017-03-26] MEDS: ALBUTEROL/IPRATROPIUM 2.5MG/0.5MG, 3 ML INLINE SCH ×6 (02:00→22:00)
[2017-03-26] MEDS: METOPROLOL TARTRATE 25 MG TABLET PO SCH ×3 (02:22→17:30)
[2017-03-26] MEDS: DEXAMETHASONE 4 MG/ML, 1ML IVPush SCH ×4 (02:22→21:34)
[2017-03-26 04:00] VITALS: BP 134/104
[2017-03-26] MEDS: METOPROLOL 1 MG/ML, 5ML IVPush PRN ×4 (04:33→22:36)
[2017-03-26 04:45] LABS: MEAN CORPUSCULAR HEMOGLOBIN 32.2 pg (27.5-34.5); MEAN CORPUSCULAR HGB CONC 33.3 g/dL (33.2-36.2); MEAN CORPUSCULAR VOLUME 96.6 fL (81-97); MEAN PLATELET VOLUME 10.1 fL (7.4-10.4); PLATELET COUNT 106 x10^3/uL (130-400); RED BLOOD COUNT 2.44 x10^6/uL (4.38-5.82); RED CELL DISTRIBUTION WIDTH 17.3 % (9.4-14.8)
[2017-03-26 04:46] LABS: ANION GAP 7 mmol/L (5-15); CALCIUM 7.8 mg/dL (8.5-10.1); CHLORIDE 115 mmol/L (98-107); CREATININE 1.63 mg/dL (0.7-1.3)
[2017-03-26] MEDS: INSULIN ASPART 100 UNITS/ML, PEN SQ-INSULIN SCH ×4 (04:55→23:21)
[2017-03-26 05:15] LABS: BASOPHILS % (AUTO) 0 % (0-1); EOSINOPHILS % (AUTO) 0 % (1-7); LYMPHOCYTES # (AUTO) 0.32 x10^3/uL (1-3.4); LYMPHOCYTES % (AUTO) 3 % (22-44); MD SCAN; MONOCYTES % (AUTO) 2 % (2-9); NEUTROPHILS % (AUTO) 95 % (42-75)
[2017-03-26] MEDS ORDERED: SODIUM POLYSTYRENE SULFONATE ORAL SUSP PO ONE (07:30)
[2017-03-26] MEDS: GABAPENTIN 250 MG/5 ML ORAL SOL PO SCH ×2 (10:40→21:34)
[2017-03-26] MEDS: PAROXETINE 20 MG TABLET PO SCH (10:41)
[2017-03-26] MEDS: SODIUM CHLORIDE FLUSH 10ML SYR IVF SCH ×2 (10:41→21:34)
[2017-03-26] MEDS: VALPROATE SODIUM 250 MG/5 ML ORAL SOLN PO SCH ×3 (10:41→21:34)
[2017-03-26] MEDS: DAPTOMYCIN 700 MG in SODIUM CHLORIDE 0.9% 100 ML IV SCH (11:23)
[2017-03-26] MEDS: CEFTAROLINE 400 MG in SODIUM CHLORIDE 0.9% 100 ML IV SCH ×2 (11:24→23:19)
[2017-03-26] MEDS: RIFAMPIN 600 MG in SODIUM CHLORIDE 0.9% 100 ML IV SCH (11:24)
[2017-03-26] MEDS: INSULIN DETEMIR 100 UNITS/ML, PEN SQ-INSULIN SCH ×2 (11:34→23:20)
[2017-03-26] MEDS: FAMOTIDINE 20 MG/2 ML IV SCH (21:34)
[2017-03-27] MEDS: ALBUTEROL/IPRATROPIUM 2.5MG/0.5MG, 3 ML INLINE SCH ×6 (01:27→19:38)
[2017-03-27] MEDS: DEXAMETHASONE 4 MG/ML, 1ML IVPush SCH ×4 (01:53→20:52)
[2017-03-27] MEDS: METOPROLOL TARTRATE 25 MG TABLET PO SCH ×3 (01:53→17:28)
[2017-03-27] MEDS: METOPROLOL 1 MG/ML, 5ML IVPush PRN ×3 (02:55→09:00)
[2017-03-27 04:00] VITALS: BP 142/111
[2017-03-27 04:33] LABS: MEAN CORPUSCULAR HEMOGLOBIN 31.9 pg (27.5-34.5); MEAN CORPUSCULAR HGB CONC 32.9 g/dL (33.2-36.2); MEAN CORPUSCULAR VOLUME 96.7 fL (81-97); MEAN PLATELET VOLUME 10.5 fL (7.4-10.4); PLATELET COUNT 148 x10^3/uL (130-400); RED BLOOD COUNT 2.77 x10^6/uL (4.38-5.82); RED CELL DISTRIBUTION WIDTH 16.5 % (9.4-14.8)
[2017-03-27 04:39] LABS: ANION GAP 13 mmol/L (5-15); CALCIUM 7.8 mg/dL (8.5-10.1); CHLORIDE 116 mmol/L (98-107); CREATININE 1.64 mg/dL (0.7-1.3)
[2017-03-27 04:58] LABS: BASOPHILS # (AUTO) 0.03 x10^3/uL (0-0.1); BASOPHILS % (AUTO) 0 % (0-1); EOSINOPHILS # (AUTO) 0.02 x10^3/uL (0-0.4); EOSINOPHILS % (AUTO) 0 % (1-7); LYMPHOCYTES # (AUTO) 0.51 x10^3/uL (1-3.4); LYMPHOCYTES % (AUTO) 3 % (22-44); MD SCAN; MONOCYTES # (AUTO) 0.55 x10^3/uL (0.2-0.8); MONOCYTES % (AUTO) 3 % (2-9); NEUTROPHILS # (AUTO) 17.67 x10^3/uL (1.8-6.8); NEUTROPHILS % (AUTO) 94 % (42-75)
[2017-03-27] MEDS: INSULIN ASPART 100 UNITS/ML, PEN SQ-INSULIN SCH ×4 (05:53→23:47)
[2017-03-27] MEDS: GABAPENTIN 250 MG/5 ML ORAL SOL PO SCH ×2 (08:13→20:52)
[2017-03-27] MEDS: PAROXETINE 20 MG TABLET PO SCH (08:13)
[2017-03-27] MEDS: VALPROATE SODIUM 250 MG/5 ML ORAL SOLN PO SCH ×3 (08:13→20:52)
[2017-03-27] MEDS: SODIUM CHLORIDE FLUSH 10ML SYR IVF SCH ×2 (09:00→20:52)
[2017-03-27] MEDS ORDERED: FENTANYL PF 100 MCG/2ML IVPush PRN (10:00)
[2017-03-27] MEDS ORDERED: SODIUM CHLORIDE 0.9%, 500ML IVBOLUS ONE (10:30)
[2017-03-27] MEDS: CEFTAROLINE 400 MG in SODIUM CHLORIDE 0.9% 100 ML IV SCH ×2 (10:51→23:45)
[2017-03-27] MEDS: DAPTOMYCIN 700 MG in SODIUM CHLORIDE 0.9% 100 ML IV SCH (11:44)
[2017-03-27] MEDS: INSULIN DETEMIR 100 UNITS/ML, PEN SQ-INSULIN SCH ×2 (11:55→23:46)
[2017-03-27] MEDS: RIFAMPIN 600 MG in SODIUM CHLORIDE 0.9% 100 ML IV SCH (11:55)
[2017-03-27] MEDS: morphine SULFATE 125 MG in SODIUM CHLORIDE 0.9% 237.5 ML IV PRN (13:02)
[2017-03-27] MEDS: FAMOTIDINE 20 MG/2 ML IV SCH (20:52)
[2017-03-28] MEDS: METOPROLOL TARTRATE 25 MG TABLET PO SCH ×3 (01:24→17:17)
[2017-03-28 04:00] VITALS: BP 89/68
[2017-03-28] MEDS: ALBUTEROL/IPRATROPIUM 2.5MG/0.5MG, 3 ML INLINE SCH ×6 (04:07→22:00)
[2017-03-28] MEDS: DEXAMETHASONE 4 MG/ML, 1ML IVPush SCH ×4 (04:27→19:54)
[2017-03-28 04:51] LABS: CHLORIDE 116 mmol/L (98-107)
[2017-03-28 04:55] LABS: ANION GAP 12 mmol/L (5-15); CALCIUM 7.8 mg/dL (8.5-10.1); CREATININE 2.47 mg/dL (0.7-1.3); TRIGLYCERIDES 54 mg/dL (50-200)
[2017-03-28 05:05] LABS: MEAN CORPUSCULAR HEMOGLOBIN 32.5 pg (27.5-34.5); MEAN CORPUSCULAR VOLUME 98.3 fL (81-97); PLATELET COUNT 106 x10^3/uL (130-400); RED BLOOD COUNT 2.33 x10^6/uL (4.38-5.82); RED CELL DISTRIBUTION WIDTH 16.7 % (9.4-14.8)
[2017-03-28 05:22] LABS: BASOPHILS # (AUTO) 0.03 x10^3/uL (0-0.1); BASOPHILS % (AUTO) 0 % (0-1); EOSINOPHILS % (AUTO) 0 % (1-7); LYMPHOCYTES # (AUTO) 0.72 x10^3/uL (1-3.4); LYMPHOCYTES % (AUTO) 8 % (22-44); MD NO; MONOCYTES # (AUTO) 0.34 x10^3/uL (0.2-0.8); MONOCYTES % (AUTO) 4 % (2-9); NEUTROPHILS % (AUTO) 88 % (42-75)
[2017-03-28] MEDS: INSULIN ASPART 100 UNITS/ML, PEN SQ-INSULIN SCH ×4 (06:05→22:49)
[2017-03-28] MEDS: VALPROATE SODIUM 250 MG/5 ML ORAL SOLN PO SCH ×3 (09:30→20:45)
[2017-03-28] MEDS: PAROXETINE 20 MG TABLET PO SCH (09:30)
[2017-03-28] MEDS: GABAPENTIN 250 MG/5 ML ORAL SOL PO SCH ×2 (09:30→20:46)
[2017-03-28] MEDS: SODIUM CHLORIDE FLUSH 10ML SYR IVF SCH ×2 (09:31→20:45)
[2017-03-28] MEDS: CEFTAROLINE 400 MG in SODIUM CHLORIDE 0.9% 100 ML IV SCH ×2 (12:00→22:49)
[2017-03-28] MEDS: INSULIN DETEMIR 100 UNITS/ML, PEN SQ-INSULIN SCH ×2 (12:05→22:49)
[2017-03-28] MEDS: DAPTOMYCIN 700 MG in SODIUM CHLORIDE 0.9% 100 ML IV SCH (12:41)
[2017-03-28] MEDS: RIFAMPIN 600 MG in SODIUM CHLORIDE 0.9% 100 ML IV SCH (12:41)
[2017-03-28] MEDS: FAMOTIDINE 20 MG/2 ML IV SCH (20:46)
[2017-03-29] MEDS: METOPROLOL TARTRATE 25 MG TABLET PO SCH ×3 (01:30→15:53)
[2017-03-29] MEDS: DEXAMETHASONE 4 MG/ML, 1ML IVPush SCH ×4 (01:55→20:01)
[2017-03-29] MEDS: ALBUTEROL/IPRATROPIUM 2.5MG/0.5MG, 3 ML INLINE SCH ×6 (02:00→22:00)
[2017-03-29 04:22] VITALS: BP 133/95
[2017-03-29 04:29] LABS: MEAN CORPUSCULAR HEMOGLOBIN 32.7 pg (27.5-34.5); MEAN CORPUSCULAR HGB CONC 33.4 g/dL (33.2-36.2); MEAN PLATELET VOLUME 10.7 fL (7.4-10.4); PLATELET COUNT 112 x10^3/uL (130-400); RED BLOOD COUNT 2.32 x10^6/uL (4.38-5.82); RED CELL DISTRIBUTION WIDTH 17.7 % (9.4-14.8)
[2017-03-29 04:40] LABS: ANION GAP 11 mmol/L (5-15); CALCIUM 7.4 mg/dL (8.5-10.1); CHLORIDE 115 mmol/L (98-107)
[2017-03-29 04:42] LABS: CREATININE 2.84 mg/dL (0.7-1.3)
[2017-03-29 04:45] LABS: BASOPHILS % (AUTO) 0 % (0-1); EOSINOPHILS % (AUTO) 0 % (1-7); LYMPHOCYTES # (AUTO) 0.26 x10^3/uL (1-3.4); LYMPHOCYTES % (AUTO) 3 % (22-44); MD SCAN; MONOCYTES # (AUTO) 0.24 x10^3/uL (0.2-0.8); MONOCYTES % (AUTO) 3 % (2-9); NEUTROPHILS % (AUTO) 94 % (42-75)
[2017-03-29] MEDS: INSULIN ASPART 100 UNITS/ML, PEN SQ-INSULIN SCH ×4 (05:00→22:52)
[2017-03-29] MEDS: SODIUM CHLORIDE FLUSH 10ML SYR IVF SCH ×2 (08:02→20:51)
[2017-03-29] MEDS: GABAPENTIN 250 MG/5 ML ORAL SOL PO SCH ×2 (08:03→20:52)
[2017-03-29] MEDS: PAROXETINE 20 MG TABLET PO SCH (08:03)
[2017-03-29] MEDS: VALPROATE SODIUM 250 MG/5 ML ORAL SOLN PO SCH ×3 (08:03→20:52)
[2017-03-29] MEDS ORDERED: SODIUM POLYSTYRENE SULFONATE ORAL SUSP PO ONE (09:00)
[2017-03-29] MEDS: morphine SULFATE 125 MG in SODIUM CHLORIDE 0.9% 237.5 ML IV PRN (10:05)
[2017-03-29] MEDS: LEVOFLOXACIN/PMX 750MG/150ML 150 ML IV SCH (10:18)
[2017-03-29] MEDS: DAPTOMYCIN 700 MG in SODIUM CHLORIDE 0.9% 100 ML IV SCH (11:13)
[2017-03-29] MEDS: INSULIN DETEMIR 100 UNITS/ML, PEN SQ-INSULIN SCH ×2 (11:14→22:51)
[2017-03-29] MEDS: RIFAMPIN 600 MG in SODIUM CHLORIDE 0.9% 100 ML IV SCH (11:56)
[2017-03-29] MEDS: FAMOTIDINE 20 MG/2 ML IV SCH (20:52)
[2017-03-30] MEDS: METOPROLOL TARTRATE 25 MG TABLET PO SCH ×3 (01:30→16:03)
[2017-03-30] MEDS: ALBUTEROL/IPRATROPIUM 2.5MG/0.5MG, 3 ML INLINE SCH ×6 (02:00→22:00)
[2017-03-30] MEDS: DEXAMETHASONE 4 MG/ML, 1ML IVPush SCH ×4 (04:23→20:00)
[2017-03-30 04:29] VITALS: BP 82/51
[2017-03-30 04:36] LABS: MEAN CORPUSCULAR HEMOGLOBIN 32.7 pg (27.5-34.5); MEAN CORPUSCULAR HGB CONC 33.3 g/dL (33.2-36.2); MEAN CORPUSCULAR VOLUME 98.2 fL (81-97); MEAN PLATELET VOLUME 10.4 fL (7.4-10.4); PLATELET COUNT 109 x10^3/uL (130-400); RED BLOOD COUNT 2.11 x10^6/uL (4.38-5.82)
[2017-03-30 04:40] LABS: ANION GAP 11 mmol/L (5-15); CALCIUM 7.1 mg/dL (8.5-10.1); CHLORIDE 115 mmol/L (98-107)
[2017-03-30 04:42] LABS: CREATININE 2.92 mg/dL (0.7-1.3)
[2017-03-30] MEDS: INSULIN ASPART 100 UNITS/ML, PEN SQ-INSULIN SCH ×4 (05:00→23:19)
[2017-03-30 05:45] LABS: BASOPHILS % (AUTO) 0 % (0-1); EOSINOPHILS # (AUTO) 0.01 x10^3/uL (0-0.4); EOSINOPHILS % (AUTO) 0 % (1-7); LYMPHOCYTES # (AUTO) 0.23 x10^3/uL (1-3.4); LYMPHOCYTES % (AUTO) 3 % (22-44); MD SCAN; MONOCYTES # (AUTO) 0.16 x10^3/uL (0.2-0.8); MONOCYTES % (AUTO) 2 % (2-9); NEUTROPHILS # (AUTO) 6.89 x10^3/uL (1.8-6.8); NEUTROPHILS % (AUTO) 95 % (42-75)
[2017-03-30] MEDS: VALPROATE SODIUM 250 MG/5 ML ORAL SOLN PO SCH ×3 (07:22→21:01)
[2017-03-30] MEDS: GABAPENTIN 250 MG/5 ML ORAL SOL PO SCH ×2 (07:22→21:01)
[2017-03-30] MEDS: PAROXETINE 20 MG TABLET PO SCH (07:23)
[2017-03-30] MEDS: SODIUM CHLORIDE FLUSH 10ML SYR IVF SCH ×2 (07:25→21:01)
[2017-03-30] MEDS ORDERED: SODIUM POLYSTYRENE SULFONATE ORAL SUSP PO ONE (07:30)
[2017-03-30] MEDS: INSULIN DETEMIR 100 UNITS/ML, PEN SQ-INSULIN SCH ×2 (11:38→23:19)
[2017-03-30] MEDS: DAPTOMYCIN 700 MG in SODIUM CHLORIDE 0.9% 100 ML IV SCH (12:30)
[2017-03-30] MEDS: morphine SULFATE 125 MG in SODIUM CHLORIDE 0.9% 237.5 ML IV PRN (12:30)
[2017-03-30] MEDS: RIFAMPIN 600 MG in SODIUM CHLORIDE 0.9% 100 ML IV SCH (12:30)
[2017-03-30 17:55] VITALS: BP 93/70
[2017-03-30 18:10] VITALS: BP 117/83
[2017-03-30 19:54] VITALS: BP 104/81
[2017-03-30 20:35] VITALS: BP 96/49
[2017-03-30] MEDS: FAMOTIDINE 20 MG/2 ML IV SCH (21:01)
[2017-03-31] MEDS: ALBUTEROL/IPRATROPIUM 2.5MG/0.5MG, 3 ML INLINE SCH ×6 (02:00→22:19)
[2017-03-31] MEDS: DEXAMETHASONE 4 MG/ML, 1ML IVPush SCH ×4 (03:48→20:58)
[2017-03-31 04:05] VITALS: BP 86/57
[2017-03-31 05:56] LABS: MEAN CORPUSCULAR HEMOGLOBIN 32.5 pg (27.5-34.5); MEAN CORPUSCULAR VOLUME 95.7 fL (81-97); MEAN PLATELET VOLUME 10.4 fL (7.4-10.4); PLATELET COUNT 125 x10^3/uL (130-400); RED BLOOD COUNT 2.34 x10^6/uL (4.38-5.82)
[2017-03-31 06:05] LABS: CHLORIDE 120 mmol/L (98-107)
[2017-03-31 06:06] LABS: ANION GAP 10 mmol/L (5-15); CALCIUM 7.6 mg/dL (8.5-10.1); CREATININE 2.75 mg/dL (0.7-1.3); TRIGLYCERIDES 59 mg/dL (50-200)
[2017-03-31 06:12] LABS: BASOPHILS % (AUTO) 0 % (0-1); EOSINOPHILS # (AUTO) 0.01 x10^3/uL (0-0.4); EOSINOPHILS % (AUTO) 0 % (1-7); LYMPHOCYTES # (AUTO) 0.38 x10^3/uL (1-3.4); LYMPHOCYTES % (AUTO) 5 % (22-44); MD SCAN; MONOCYTES # (AUTO) 0.24 x10^3/uL (0.2-0.8); MONOCYTES % (AUTO) 3 % (2-9); NEUTROPHILS # (AUTO) 6.45 x10^3/uL (1.8-6.8); NEUTROPHILS % (AUTO) 91 % (42-75)
[2017-03-31] MEDS: INSULIN ASPART 100 UNITS/ML, PEN SQ-INSULIN SCH ×4 (06:26→23:11)
[2017-03-31] MEDS: VALPROATE SODIUM 250 MG/5 ML ORAL SOLN PO SCH ×3 (08:25→21:00)
[2017-03-31] MEDS: GABAPENTIN 250 MG/5 ML ORAL SOL PO SCH ×2 (08:25→20:59)
[2017-03-31] MEDS: PAROXETINE 20 MG TABLET PO SCH (08:26)
[2017-03-31] MEDS: SODIUM CHLORIDE FLUSH 10ML SYR IVF SCH ×2 (08:26→20:59)
[2017-03-31] MEDS: LEVOFLOXACIN/PMX 750MG/150ML 150 ML IV SCH (09:00)
[2017-03-31] MEDS: DAPTOMYCIN 700 MG in SODIUM CHLORIDE 0.9% 100 ML IV SCH (11:21)
[2017-03-31] MEDS: INSULIN DETEMIR 100 UNITS/ML, PEN SQ-INSULIN SCH ×2 (11:26→23:08)
[2017-03-31] MEDS: RIFAMPIN 600 MG in SODIUM CHLORIDE 0.9% 100 ML IV SCH (12:22)
[2017-03-31] MEDS ORDERED: FENTANYL PF 2,500 MCG in SODIUM CHLORIDE 0.9% 200 ML IV PRN (15:30)
[2017-03-31] MEDS: METOPROLOL TARTRATE 25 MG TABLET PO SCH ×2 (15:30→17:52)
[2017-03-31] MEDS: FAMOTIDINE 20 MG/2 ML IV SCH (21:00)
[2017-03-31] MEDS ORDERED: LIDOCAINE-MPF 1%, 2ML ENDO PRN (22:30)
[2017-03-31] MEDS ORDERED: ACETAMINOPHEN 650 MG SUPP PR PRN (22:30)
[2017-03-31] MEDS ORDERED: BISACODYL 10 MG SUPP PR PRN (22:30)
[2017-03-31] MEDS ORDERED: SODIUM CHLORIDE 0.9% 500 ML IV SCH (22:30)
[2017-03-31] MEDS ORDERED: ACETAMINOPHEN 325 MG TABLET PO PRN (22:30)
[2017-03-31] MEDS ORDERED: ONDANSETRON 2MG/ML, 2ML IVPush PRN (22:30)
[2017-03-31] MEDS ORDERED: METOPROLOL 1 MG/ML, 5ML IVPush PRN (22:30)
[2017-03-31] MEDS ORDERED: PHARMACY MAY ADJ FOR RENAL FX MC SCH (22:30)
[2017-04-01] MEDS: ALBUTEROL/IPRATROPIUM 2.5MG/0.5MG, 3 ML INLINE SCH ×6 (02:26→21:50)
[2017-04-01] MEDS: DEXAMETHASONE 4 MG/ML, 1ML IVPush SCH ×3 (02:38→20:24)
[2017-04-01 04:00] VITALS: BP 86/62
[2017-04-01 04:41] LABS: MEAN CORPUSCULAR HEMOGLOBIN 32.6 pg (27.5-34.5); MEAN CORPUSCULAR HGB CONC 33.7 g/dL (33.2-36.2); MEAN CORPUSCULAR VOLUME 96.7 fL (81-97); MEAN PLATELET VOLUME 10.1 fL (7.4-10.4); PLATELET COUNT 142 x10^3/uL (130-400)
[2017-04-01 04:42] LABS: CHLORIDE 118 mmol/L (98-107); RED CELL DISTRIBUTION WIDTH 17.3 % (9.4-14.8)
[2017-04-01 04:49] LABS: ALANINE AMINOTRANSFERASE 87 U/L (12-78); ALKALINE PHOSPHATASE 51 U/L (45-117); ANION GAP 9 mmol/L (5-15); BILIRUBIN,TOTAL 0.6 mg/dL (0.2-1.0); CALCIUM 7.6 mg/dL (8.5-10.1); CREATININE 2.68 mg/dL (0.7-1.3); TOTAL PROTEIN 6.4 g/dL (6.4-8.2)
[2017-04-01] MEDS: INSULIN ASPART 100 UNITS/ML, PEN SQ-INSULIN SCH ×4 (05:00→23:13)
[2017-04-01 05:37] LABS: BASOPHILS % (AUTO) 0 % (0-1); EOSINOPHILS # (AUTO) 0.01 x10^3/uL (0-0.4); EOSINOPHILS % (AUTO) 0 % (1-7); LYMPHOCYTES # (AUTO) 0.26 x10^3/uL (1-3.4); LYMPHOCYTES % (AUTO) 3 % (22-44); MD SCAN; MONOCYTES # (AUTO) 0.25 x10^3/uL (0.2-0.8); MONOCYTES % (AUTO) 3 % (2-9); NEUTROPHILS # (AUTO) 7.93 x10^3/uL (1.8-6.8); NEUTROPHILS % (AUTO) 94 % (42-75)
[2017-04-01] MEDS: METOPROLOL TARTRATE 25 MG TABLET PO SCH ×2 (06:00→18:00)
[2017-04-01] MEDS: GABAPENTIN 250 MG/5 ML ORAL SOL PO SCH ×2 (09:57→21:32)
[2017-04-01] MEDS: VALPROATE SODIUM 250 MG/5 ML ORAL SOLN PO SCH ×3 (09:57→21:32)
[2017-04-01] MEDS: PAROXETINE 20 MG TABLET PO SCH (09:58)
[2017-04-01] MEDS: INSULIN DETEMIR 100 UNITS/ML, PEN SQ-INSULIN SCH ×2 (11:00→23:12)
[2017-04-01] MEDS: RIFAMPIN 600 MG in SODIUM CHLORIDE 0.9% 100 ML IV SCH (12:58)
[2017-04-01] MEDS ORDERED: DIGOXIN 0.25 MG/ML, 2ML IVPush ONE ×2 (13:30→19:30)
[2017-04-01] MEDS: SODIUM CHLORIDE FLUSH 10ML SYR IVF SCH ×2 (14:29→20:28)
[2017-04-01] MEDS: FAMOTIDINE 20 MG/2 ML IV SCH (21:32)
[2017-04-02] MEDS ORDERED: DIGOXIN 0.25 MG/ML, 2ML IVPush ONE (01:30)
[2017-04-02] MEDS: DEXAMETHASONE 4 MG/ML, 1ML IVPush SCH ×4 (01:37→20:15)
[2017-04-02] MEDS: ALBUTEROL/IPRATROPIUM 2.5MG/0.5MG, 3 ML INLINE SCH ×5 (03:57→18:30)
[2017-04-02 04:00] VITALS: BP 117/79
[2017-04-02 04:38] LABS: BASOPHILS # (AUTO) 0.01 x10^3/uL (0-0.1); BASOPHILS % (AUTO) 0 % (0-1); EOSINOPHILS # (AUTO) 0.03 x10^3/uL (0-0.4); EOSINOPHILS % (AUTO) 0 % (1-7); LYMPHOCYTES # (AUTO) 0.28 x10^3/uL (1-3.4); LYMPHOCYTES % (AUTO) 4 % (22-44); MD NO; MEAN CORPUSCULAR HEMOGLOBIN 32.7 pg (27.5-34.5); MEAN CORPUSCULAR HGB CONC 33.4 g/dL (33.2-36.2); MEAN CORPUSCULAR VOLUME 97.9 fL (81-97); MEAN PLATELET VOLUME 9.7 fL (7.4-10.4); MONOCYTES # (AUTO) 0.21 x10^3/uL (0.2-0.8); MONOCYTES % (AUTO) 3 % (2-9); NEUTROPHILS # (AUTO) 7.04 x10^3/uL (1.8-6.8); NEUTROPHILS % (AUTO) 93 % (42-75); PLATELET COUNT 156 x10^3/uL (130-400); RED BLOOD COUNT 2.47 x10^6/uL (4.38-5.82); RED CELL DISTRIBUTION WIDTH 17.3 % (9.4-14.8)
[2017-04-02 04:45] LABS: ANION GAP 9 mmol/L (5-15); CALCIUM 8.1 mg/dL (8.5-10.1); CHLORIDE 122 mmol/L (98-107); CREATININE 2.53 mg/dL (0.7-1.3)
[2017-04-02] MEDS: METOPROLOL TARTRATE 25 MG TABLET PO SCH ×2 (05:42→17:48)
[2017-04-02] MEDS: INSULIN ASPART 100 UNITS/ML, PEN SQ-INSULIN SCH ×4 (05:42→22:59)
[2017-04-02] MEDS: VALPROATE SODIUM 250 MG/5 ML ORAL SOLN PO SCH ×3 (10:23→20:15)
[2017-04-02] MEDS: LEVOFLOXACIN/PMX 750MG/150ML 150 ML IV SCH (10:23)
[2017-04-02] MEDS: PAROXETINE 20 MG TABLET PO SCH (10:23)
[2017-04-02] MEDS: GABAPENTIN 250 MG/5 ML ORAL SOL PO SCH ×2 (10:23→20:15)
[2017-04-02] MEDS: SODIUM CHLORIDE FLUSH 10ML SYR IVF SCH ×2 (10:25→20:15)
[2017-04-02] MEDS: INSULIN DETEMIR 100 UNITS/ML, PEN SQ-INSULIN SCH ×2 (10:38→22:58)
[2017-04-02] MEDS: DAPTOMYCIN 700 MG in SODIUM CHLORIDE 0.9% 100 ML IV SCH (15:37)
[2017-04-02] MEDS: RIFAMPIN 600 MG in SODIUM CHLORIDE 0.9% 100 ML IV SCH (17:46)
[2017-04-02] MEDS: FAMOTIDINE 20 MG/2 ML IV SCH (20:15)
[2017-04-02] MEDS: SODIUM POLYSTYRENE SULFONATE ORAL SUSP PO SCH ×2 (20:25→22:05)
[2017-04-02] MEDS ORDERED: ALBUTEROL/IPRATROPIUM 2.5MG/0.5MG, 3 ML INLINE PRN (22:30)
[2017-04-03] MEDS: DEXAMETHASONE 4 MG/ML, 1ML IVPush SCH ×4 (00:24→19:44)
[2017-04-03 04:00] VITALS: BP 110/70
[2017-04-03 04:31] LABS: MEAN CORPUSCULAR HEMOGLOBIN 32.5 pg (27.5-34.5); MEAN CORPUSCULAR VOLUME 98.4 fL (81-97); MEAN PLATELET VOLUME 9.5 fL (7.4-10.4); PLATELET COUNT 189 x10^3/uL (130-400); RED BLOOD COUNT 2.61 x10^6/uL (4.38-5.82); RED CELL DISTRIBUTION WIDTH 18.1 % (9.4-14.8)
[2017-04-03 04:42] LABS: ANION GAP 9 mmol/L (5-15); CHLORIDE 123 mmol/L (98-107); CREATININE 2.29 mg/dL (0.7-1.3)
[2017-04-03 04:53] LABS: BASOPHILS % (AUTO) 0 % (0-1); EOSINOPHILS # (AUTO) 0.04 x10^3/uL (0-0.4); EOSINOPHILS % (AUTO) 0 % (1-7); LYMPHOCYTES # (AUTO) 0.26 x10^3/uL (1-3.4); LYMPHOCYTES % (AUTO) 2 % (22-44); MD SCAN; MONOCYTES # (AUTO) 0.39 x10^3/uL (0.2-0.8); MONOCYTES % (AUTO) 3 % (2-9); NEUTROPHILS # (AUTO) 12.16 x10^3/uL (1.8-6.8); NEUTROPHILS % (AUTO) 95 % (42-75)
[2017-04-03] MEDS: METOPROLOL TARTRATE 25 MG TABLET PO SCH ×2 (05:10→18:00)
[2017-04-03] MEDS: SODIUM POLYSTYRENE SULFONATE ORAL SUSP PO SCH ×4 (05:11→19:45)
[2017-04-03] MEDS: INSULIN ASPART 100 UNITS/ML, PEN SQ-INSULIN SCH ×4 (05:11→23:00)
[2017-04-03] MEDS ORDERED: FUROSEMIDE 40 MG/4 ML IV ONE (05:30)
[2017-04-03 06:38] LABS: ANION GAP 9 mmol/L (5-15); CALCIUM 8.1 mg/dL (8.5-10.1); CHLORIDE 121 mmol/L (98-107)
[2017-04-03 06:40] LABS: CREATININE 2.33 mg/dL (0.7-1.3)
[2017-04-03] MEDS: VALPROATE SODIUM 250 MG/5 ML ORAL SOLN PO SCH ×3 (10:00→19:44)
[2017-04-03] MEDS: GABAPENTIN 250 MG/5 ML ORAL SOL PO SCH ×2 (10:00→19:44)
[2017-04-03] MEDS: PAROXETINE 20 MG TABLET PO SCH (10:00)
[2017-04-03] MEDS: SODIUM CHLORIDE FLUSH 10ML SYR IVF SCH ×2 (10:00→19:44)
[2017-04-03] MEDS: DIGOXIN 0.25 MG/ML, 2ML IVPush SCH (11:21)
[2017-04-03] MEDS: INSULIN DETEMIR 100 UNITS/ML, PEN SQ-INSULIN SCH ×2 (11:26→23:02)
[2017-04-03] MEDS: RIFAMPIN 600 MG in SODIUM CHLORIDE 0.9% 100 ML IV SCH (14:40)
[2017-04-03] MEDS ORDERED: FILTER IV PRN (15:30)
[2017-04-03] MEDS ORDERED: [UNRECOGNIZED DRUG - OTHER] IV PRN (15:30)
[2017-04-03] MEDS ORDERED: AMIODARONE 900 MG in DEXTROSE 5% 482 ML IV PRN (15:30)
[2017-04-03] MEDS ORDERED: AMIODARONE 150 MG in DEXTROSE 5% 100 ML IV ONE ×2 (15:30→16:00)
[2017-04-03] MEDS: AMIODARONE 900 MG in DEXTROSE 5% 482 ML IV PRN (15:43)
[2017-04-03] MEDS: FAMOTIDINE 20 MG/2 ML IV SCH (19:44)
[2017-04-04] MEDS: DEXAMETHASONE 4 MG/ML, 1ML IVPush SCH ×4 (02:09→19:55)
[2017-04-04 04:00] VITALS: BP 110/84
[2017-04-04] MEDS: METOPROLOL TARTRATE 25 MG TABLET PO SCH ×2 (04:38→16:50)
[2017-04-04] MEDS: INSULIN ASPART 100 UNITS/ML, PEN SQ-INSULIN SCH ×4 (04:38→23:00)
[2017-04-04] MEDS: SODIUM POLYSTYRENE SULFONATE ORAL SUSP PO SCH (04:39)
[2017-04-04 04:52] LABS: MEAN CORPUSCULAR HEMOGLOBIN 32.2 pg (27.5-34.5); MEAN CORPUSCULAR HGB CONC 32.5 g/dL (33.2-36.2); MEAN CORPUSCULAR VOLUME 99.3 fL (81-97); MEAN PLATELET VOLUME 9.9 fL (7.4-10.4); PLATELET COUNT 159 x10^3/uL (130-400); RED BLOOD COUNT 2.52 x10^6/uL (4.38-5.82); RED CELL DISTRIBUTION WIDTH 17.3 % (9.4-14.8)
[2017-04-04 05:08] LABS: ANION GAP 8 mmol/L (5-15); CALCIUM 7.2 mg/dL (8.5-10.1); CHLORIDE 121 mmol/L (98-107)
[2017-04-04 05:09] LABS: CREATININE 2.11 mg/dL (0.7-1.3)
[2017-04-04 05:15] LABS: BASOPHILS % (AUTO) 0 % (0-1); EOSINOPHILS # (AUTO) 0.11 x10^3/uL (0-0.4); EOSINOPHILS % (AUTO) 1 % (1-7); LYMPHOCYTES # (AUTO) 0.35 x10^3/uL (1-3.4); LYMPHOCYTES % (AUTO) 4 % (22-44); MD SCAN; MONOCYTES # (AUTO) 0.24 x10^3/uL (0.2-0.8); MONOCYTES % (AUTO) 2 % (2-9); NEUTROPHILS % (AUTO) 93 % (42-75)
[2017-04-04] MEDS: SODIUM CHLORIDE FLUSH 10ML SYR IVF SCH ×2 (08:55→20:40)
[2017-04-04] MEDS: PAROXETINE 20 MG TABLET PO SCH (08:56)
[2017-04-04] MEDS: VALPROATE SODIUM 250 MG/5 ML ORAL SOLN PO SCH ×3 (08:56→20:40)
[2017-04-04] MEDS: LEVOFLOXACIN/PMX 750MG/150ML 150 ML IV SCH (08:56)
[2017-04-04] MEDS: GABAPENTIN 250 MG/5 ML ORAL SOL PO SCH ×2 (08:56→20:40)
[2017-04-04] MEDS: INSULIN DETEMIR 100 UNITS/ML, PEN SQ-INSULIN SCH ×2 (11:27→22:42)
[2017-04-04] MEDS: RIFAMPIN 600 MG in SODIUM CHLORIDE 0.9% 100 ML IV SCH (11:50)
[2017-04-04] MEDS: DAPTOMYCIN 700 MG in SODIUM CHLORIDE 0.9% 100 ML IV SCH (13:19)
[2017-04-04] MEDS ORDERED: [UNRECOGNIZED DRUG - OTHER] IV PRN (14:30)
[2017-04-04] MEDS: AMIODARONE 900 MG in DEXTROSE 5% 482 ML IV PRN (14:30)
[2017-04-04] MEDS ORDERED: FILTER IV PRN (14:30)
[2017-04-04] MEDS: FENTANYL PF 2,500 MCG in SODIUM CHLORIDE 0.9% 200 ML IV PRN (14:31)
[2017-04-04] MEDS: FAMOTIDINE 20 MG/2 ML IV SCH (20:57)
[2017-04-05] MEDS: DEXAMETHASONE 4 MG/ML, 1ML IVPush SCH ×2 (01:43→20:56)
[2017-04-05 04:00] VITALS: BP 98/76
[2017-04-05 04:38] LABS: MEAN CORPUSCULAR HEMOGLOBIN 32.9 pg (27.5-34.5); MEAN CORPUSCULAR HGB CONC 33.6 g/dL (33.2-36.2); MEAN CORPUSCULAR VOLUME 97.9 fL (81-97); MEAN PLATELET VOLUME 10.1 fL (7.4-10.4); PLATELET COUNT 151 x10^3/uL (130-400); RED BLOOD COUNT 2.56 x10^6/uL (4.38-5.82)
[2017-04-05 04:48] LABS: ANION GAP 8 mmol/L (5-15); CALCIUM 7.4 mg/dL (8.5-10.1); CHLORIDE 120 mmol/L (98-107); CREATININE 1.86 mg/dL (0.7-1.3)
[2017-04-05 05:00] LABS: BASOPHILS # (AUTO) 0.01 x10^3/uL (0-0.1); BASOPHILS % (AUTO) 0 % (0-1); EOSINOPHILS # (AUTO) 0.07 x10^3/uL (0-0.4); EOSINOPHILS % (AUTO) 1 % (1-7); LYMPHOCYTES # (AUTO) 0.29 x10^3/uL (1-3.4); LYMPHOCYTES % (AUTO) 3 % (22-44); MD SCAN; MONOCYTES # (AUTO) 0.37 x10^3/uL (0.2-0.8); MONOCYTES % (AUTO) 3 % (2-9); NEUTROPHILS # (AUTO) 10.13 x10^3/uL (1.8-6.8); NEUTROPHILS % (AUTO) 93 % (42-75)
[2017-04-05] MEDS: INSULIN ASPART 100 UNITS/ML, PEN SQ-INSULIN SCH ×4 (05:24→23:46)
[2017-04-05] MEDS: METOPROLOL TARTRATE 25 MG TABLET PO SCH ×2 (05:25→18:00)
[2017-04-05] MEDS: DIGOXIN 0.25 MG/ML, 2ML IVPush SCH (08:58)
[2017-04-05] MEDS: SODIUM CHLORIDE FLUSH 10ML SYR IVF SCH ×2 (08:58→20:55)
[2017-04-05] MEDS: PAROXETINE 20 MG TABLET PO SCH (08:58)
[2017-04-05] MEDS: VALPROATE SODIUM 250 MG/5 ML ORAL SOLN PO SCH ×3 (08:59→20:56)
[2017-04-05] MEDS: GABAPENTIN 250 MG/5 ML ORAL SOL PO SCH ×2 (08:59→20:56)
[2017-04-05] MEDS ORDERED: DEXAMETHASONE 4 MG/ML, 1ML IVPush SCH (09:30)
[2017-04-05] MEDS: INSULIN DETEMIR 100 UNITS/ML, PEN SQ-INSULIN SCH ×2 (12:39→22:56)
[2017-04-05] MEDS: RIFAMPIN 600 MG in SODIUM CHLORIDE 0.9% 100 ML IV SCH (12:42)
[2017-04-05] MEDS ORDERED: FILTER IV PRN (21:30)
[2017-04-05] MEDS: FAMOTIDINE 20 MG/2 ML IV SCH (21:30)
[2017-04-05] MEDS ORDERED: [UNRECOGNIZED DRUG - OTHER] IV PRN (21:30)
[2017-04-05] MEDS: AMIODARONE 900 MG in DEXTROSE 5% 482 ML IV PRN (22:23)
[2017-04-06 04:00] VITALS: BP 89/58
[2017-04-06] MEDS: INSULIN ASPART 100 UNITS/ML, PEN SQ-INSULIN SCH ×4 (05:00→22:45)
[2017-04-06 05:07] LABS: BASOPHILS # (AUTO) 0.02 x10^3/uL (0-0.1); BASOPHILS % (AUTO) 0 % (0-1); EOSINOPHILS # (AUTO) 0.13 x10^3/uL (0-0.4); EOSINOPHILS % (AUTO) 1 % (1-7); LYMPHOCYTES # (AUTO) 0.46 x10^3/uL (1-3.4); LYMPHOCYTES % (AUTO) 5 % (22-44); MD NO; MEAN CORPUSCULAR HEMOGLOBIN 33.2 pg (27.5-34.5); MEAN CORPUSCULAR HGB CONC 33.7 g/dL (33.2-36.2); MEAN CORPUSCULAR VOLUME 98.4 fL (81-97); MEAN PLATELET VOLUME 10.4 fL (7.4-10.4); MONOCYTES # (AUTO) 0.25 x10^3/uL (0.2-0.8); MONOCYTES % (AUTO) 3 % (2-9); NEUTROPHILS # (AUTO) 8.51 x10^3/uL (1.8-6.8); NEUTROPHILS % (AUTO) 91 % (42-75); PLATELET COUNT 128 x10^3/uL (130-400); RED BLOOD COUNT 2.41 x10^6/uL (4.38-5.82); RED CELL DISTRIBUTION WIDTH 19.6 % (9.4-14.8)
[2017-04-06 05:18] LABS: ANION GAP 7 mmol/L (5-15); CALCIUM 7.2 mg/dL (8.5-10.1); CHLORIDE 115 mmol/L (98-107); CREATININE 1.48 mg/dL (0.7-1.3)
[2017-04-06] MEDS: METOPROLOL TARTRATE 25 MG TABLET PO SCH ×2 (06:00→17:39)
[2017-04-06] MEDS: SODIUM CHLORIDE FLUSH 10ML SYR IVF SCH ×2 (08:32→20:55)
[2017-04-06] MEDS: VALPROATE SODIUM 250 MG/5 ML ORAL SOLN PO SCH ×3 (08:32→20:55)
[2017-04-06] MEDS: PAROXETINE 20 MG TABLET PO SCH (08:33)
[2017-04-06] MEDS: DAPTOMYCIN 700 MG in SODIUM CHLORIDE 0.9% 100 ML IV SCH (08:33)
[2017-04-06] MEDS: DEXAMETHASONE 4 MG/ML, 1ML IVPush SCH ×2 (08:33→20:55)
[2017-04-06] MEDS: GABAPENTIN 250 MG/5 ML ORAL SOL PO SCH ×2 (08:33→20:55)
[2017-04-06] MEDS: FENTANYL PF 2,500 MCG in SODIUM CHLORIDE 0.9% 200 ML IV PRN (10:56)
[2017-04-06] MEDS: INSULIN DETEMIR 100 UNITS/ML, PEN SQ-INSULIN SCH ×2 (10:56→22:47)
[2017-04-06] MEDS: RIFAMPIN 600 MG in SODIUM CHLORIDE 0.9% 100 ML IV SCH (11:31)
[2017-04-06] MEDS: FAMOTIDINE 20 MG/2 ML IV SCH (20:56)
[2017-04-07 04:00] VITALS: BP 94/52
[2017-04-07 04:31] LABS: MEAN CORPUSCULAR HEMOGLOBIN 33.4 pg (27.5-34.5); MEAN CORPUSCULAR HGB CONC 34.1 g/dL (33.2-36.2); MEAN CORPUSCULAR VOLUME 98.1 fL (81-97); MEAN PLATELET VOLUME 10.2 fL (7.4-10.4); PLATELET COUNT 78 x10^3/uL (130-400); RED BLOOD COUNT 2.16 x10^6/uL (4.38-5.82); RED CELL DISTRIBUTION WIDTH 18.4 % (9.4-14.8)
[2017-04-07 04:39] LABS: ANION GAP 7 mmol/L (5-15); CHLORIDE 108 mmol/L (98-107); CREATININE 1.29 mg/dL (0.7-1.3)
[2017-04-07] MEDS: INSULIN ASPART 100 UNITS/ML, PEN SQ-INSULIN SCH ×4 (05:00→19:30)
[2017-04-07 05:01] LABS: BASOPHILS # (AUTO) 0.01 x10^3/uL (0-0.1); BASOPHILS % (AUTO) 0 % (0-1); EOSINOPHILS # (AUTO) 0.11 x10^3/uL (0-0.4); EOSINOPHILS % (AUTO) 1 % (1-7); LYMPHOCYTES # (AUTO) 0.42 x10^3/uL (1-3.4); LYMPHOCYTES % (AUTO) 4 % (22-44); MD SCAN; MONOCYTES % (AUTO) 3 % (2-9); NEUTROPHILS # (AUTO) 9.24 x10^3/uL (1.8-6.8); NEUTROPHILS % (AUTO) 92 % (42-75)
[2017-04-07] MEDS: METOPROLOL TARTRATE 25 MG TABLET PO SCH ×2 (06:00→16:23)
[2017-04-07] MEDS: AMIODARONE 900 MG in DEXTROSE 5% 482 ML IV PRN (07:11)
[2017-04-07] MEDS: SODIUM CHLORIDE FLUSH 10ML SYR IVF SCH ×2 (07:43→21:01)
[2017-04-07] MEDS: GABAPENTIN 250 MG/5 ML ORAL SOL PO SCH ×2 (07:43→21:01)
[2017-04-07] MEDS: DEXAMETHASONE 4 MG/ML, 1ML IVPush SCH ×2 (07:43→21:01)
[2017-04-07] MEDS: PAROXETINE 20 MG TABLET PO SCH (07:43)
[2017-04-07] MEDS: DIGOXIN 0.25 MG/ML, 2ML IVPush SCH (07:43)
[2017-04-07] MEDS: VALPROATE SODIUM 250 MG/5 ML ORAL SOLN PO SCH ×3 (07:43→21:02)
[2017-04-07] MEDS: INSULIN DETEMIR 100 UNITS/ML, PEN SQ-INSULIN SCH ×2 (11:36→23:20)
[2017-04-07] MEDS: RIFAMPIN 600 MG in SODIUM CHLORIDE 0.9% 100 ML IV SCH (11:43)
[2017-04-07] MEDS ORDERED: PHARMACY MAY ADJ FOR RENAL FX MC SCH ×2 (19:30)
[2017-04-07] MEDS ORDERED: ONDANSETRON 2MG/ML, 2ML IVPush PRN ×2 (19:30)
[2017-04-07] MEDS ORDERED: LACTULOSE 20 GM/30 ML UDC NG PRN ×2 (19:30)
[2017-04-07] MEDS ORDERED: ACETAMINOPHEN 650 MG SUPP PR PRN ×2 (19:30)
[2017-04-07] MEDS ORDERED: LIDOCAINE-MPF 1%, 2ML ENDO PRN ×2 (19:30)
[2017-04-07] MEDS ORDERED: BISACODYL 10 MG SUPP PR PRN ×2 (19:30)
[2017-04-07] MEDS ORDERED: ACETAMINOPHEN 325 MG TABLET PO PRN ×2 (19:30)
[2017-04-07] MEDS ORDERED: SODIUM CHLORIDE 0.9% 500 ML IV SCH (19:30)
[2017-04-07] MEDS: FAMOTIDINE 20 MG/2 ML IV SCH (21:00)
[2017-04-08] MEDS: INSULIN ASPART 100 UNITS/ML, PEN SQ-INSULIN SCH ×4 (01:30→23:00)
[2017-04-08 03:40] VITALS: BP 86/46
[2017-04-08 04:46] LABS: ANION GAP 7 mmol/L (5-15); CALCIUM 6.8 mg/dL (8.5-10.1); CHLORIDE 107 mmol/L (98-107); CREATININE 1.15 mg/dL (0.7-1.3); MEAN CORPUSCULAR HEMOGLOBIN 32.7 pg (27.5-34.5); MEAN CORPUSCULAR HGB CONC 33.3 g/dL (33.2-36.2); MEAN CORPUSCULAR VOLUME 98.2 fL (81-97); RED BLOOD COUNT 2.21 x10^6/uL (4.38-5.82); RED CELL DISTRIBUTION WIDTH 18.5 % (9.4-14.8)
[2017-04-08 05:01] LABS: CREATINE KINASE, TOTAL 65 U/L (39-308)
[2017-04-08 05:41] LABS: MEAN PLATELET VOLUME 11.2 fL (7.4-10.4); PLATELET COUNT 63 x10^3/uL (130-400)
[2017-04-08 05:43] LABS: BASOPHILS # (AUTO) 0.01 x10^3/uL (0-0.1); BASOPHILS % (AUTO) 0 % (0-1); EOSINOPHILS # (AUTO) 0.12 x10^3/uL (0-0.4); EOSINOPHILS % (AUTO) 1 % (1-7); LYMPHOCYTES # (AUTO) 0.49 x10^3/uL (1-3.4); LYMPHOCYTES % (AUTO) 4 % (22-44); MD SCAN; MONOCYTES # (AUTO) 0.34 x10^3/uL (0.2-0.8); MONOCYTES % (AUTO) 3 % (2-9); NEUTROPHILS # (AUTO) 12.67 x10^3/uL (1.8-6.8); NEUTROPHILS % (AUTO) 93 % (42-75)
[2017-04-08] MEDS: METOPROLOL TARTRATE 25 MG TABLET PO SCH ×2 (06:00→17:28)
[2017-04-08] MEDS: PAROXETINE 20 MG TABLET PO SCH (09:21)
[2017-04-08] MEDS: DEXAMETHASONE 4 MG/ML, 1ML IVPush SCH ×2 (09:23→20:03)
[2017-04-08] MEDS: GABAPENTIN 250 MG/5 ML ORAL SOL PO SCH ×2 (09:24→20:03)
[2017-04-08] MEDS: VALPROATE SODIUM 250 MG/5 ML ORAL SOLN PO SCH ×3 (09:25→20:03)
[2017-04-08] MEDS: SODIUM CHLORIDE FLUSH 10ML SYR IVF SCH ×2 (09:27→20:02)
[2017-04-08] MEDS: FENTANYL PF 2,500 MCG in SODIUM CHLORIDE 0.9% 200 ML IV PRN (11:12)
[2017-04-08] MEDS: INSULIN DETEMIR 100 UNITS/ML, PEN SQ-INSULIN SCH ×2 (11:18→23:38)
[2017-04-08] MEDS ORDERED: FAMOTIDINE 20 MG/2 ML IV SCH (12:00)
[2017-04-08] MEDS: RIFAMPIN 600 MG in SODIUM CHLORIDE 0.9% 100 ML IV SCH (15:43)
[2017-04-08] MEDS: DAPTOMYCIN 700 MG in SODIUM CHLORIDE 0.9% 100 ML IV SCH (17:35)
[2017-04-08] MEDS: METOPROLOL 1 MG/ML, 5ML IVPush PRN (20:04)
[2017-04-09] MEDS: METOPROLOL 1 MG/ML, 5ML IVPush PRN ×2 (03:29→10:51)
[2017-04-09 03:30] VITALS: BP 114/82
[2017-04-09] MEDS: INSULIN ASPART 100 UNITS/ML, PEN SQ-INSULIN SCH ×4 (05:00→23:25)
[2017-04-09] MEDS: METOPROLOL TARTRATE 25 MG TABLET PO SCH ×2 (05:36→17:50)
[2017-04-09 05:45] LABS: CHLORIDE 104 mmol/L (98-107)
[2017-04-09 05:49] LABS: ANION GAP 8 mmol/L (5-15); CALCIUM 7.2 mg/dL (8.5-10.1); CREATININE 0.98 mg/dL (0.7-1.3)
[2017-04-09 06:16] LABS: MEAN CORPUSCULAR HEMOGLOBIN 32.8 pg (27.5-34.5); MEAN CORPUSCULAR HGB CONC 33.5 g/dL (33.2-36.2); MEAN PLATELET VOLUME 11.1 fL (7.4-10.4); PLATELET COUNT 61 x10^3/uL (130-400); RED BLOOD COUNT 2.37 x10^6/uL (4.38-5.82); RED CELL DISTRIBUTION WIDTH 17.4 % (9.4-14.8)
[2017-04-09 06:41] LABS: BASOPHILS % (AUTO) 0 % (0-1); EOSINOPHILS # (AUTO) 0.18 x10^3/uL (0-0.4); EOSINOPHILS % (AUTO) 1 % (1-7); LYMPHOCYTES % (AUTO) 4 % (22-44); MD SCAN; MONOCYTES # (AUTO) 0.45 x10^3/uL (0.2-0.8); MONOCYTES % (AUTO) 3 % (2-9); NEUTROPHILS # (AUTO) 12.02 x10^3/uL (1.8-6.8); NEUTROPHILS % (AUTO) 91 % (42-75)
[2017-04-09] MEDS: VALPROATE SODIUM 250 MG/5 ML ORAL SOLN PO SCH ×3 (08:53→20:33)
[2017-04-09] MEDS: GABAPENTIN 250 MG/5 ML ORAL SOL PO SCH ×2 (08:53→20:33)
[2017-04-09] MEDS: SODIUM CHLORIDE FLUSH 10ML SYR IVF SCH ×2 (08:54→20:33)
[2017-04-09] MEDS: DEXAMETHASONE 4 MG/ML, 1ML IVPush SCH ×2 (08:54→20:33)
[2017-04-09] MEDS: DIGOXIN 0.25 MG/ML, 2ML IVPush SCH (08:54)
[2017-04-09] MEDS: PAROXETINE 20 MG TABLET PO SCH (09:00)
[2017-04-09] MEDS: INSULIN DETEMIR 100 UNITS/ML, PEN SQ-INSULIN SCH ×2 (10:51→23:24)
[2017-04-09] MEDS: RIFAMPIN 600 MG in SODIUM CHLORIDE 0.9% 100 ML IV SCH (10:51)
[2017-04-09] MEDS ORDERED: SODIUM CHLORIDE 0.9%, 500ML IVBOLUS ONE (22:00)
[2017-04-10] MEDS ORDERED: SODIUM CHLORIDE 0.9%, 500ML IVBOLUS ONE ×2 (00:30→04:00)
[2017-04-10 04:00] VITALS: BP 76/41
[2017-04-10] MEDS: INSULIN ASPART 100 UNITS/ML, PEN SQ-INSULIN SCH ×4 (05:00→23:29)
[2017-04-10] MEDS: METOPROLOL TARTRATE 25 MG TABLET PO SCH ×2 (05:45→16:02)
[2017-04-10] MEDS: PAROXETINE 20 MG TABLET PO SCH (07:57)
[2017-04-10] MEDS: SODIUM CHLORIDE FLUSH 10ML SYR IVF SCH ×2 (07:57→20:48)
[2017-04-10] MEDS: DEXAMETHASONE 4 MG/ML, 1ML IVPush SCH ×2 (07:57→20:47)
[2017-04-10] MEDS: GABAPENTIN 250 MG/5 ML ORAL SOL PO SCH ×2 (07:57→20:47)
[2017-04-10] MEDS: VALPROATE SODIUM 250 MG/5 ML ORAL SOLN PO SCH ×3 (07:57→20:47)
[2017-04-10] MEDS ORDERED: AMIODARONE 200 MG TABLET PO SCH (09:00)
[2017-04-10 09:33] LABS: ANION GAP 7 mmol/L (5-15); CALCIUM 6.9 mg/dL (8.5-10.1); CHLORIDE 105 mmol/L (98-107); CREATININE 1.32 mg/dL (0.7-1.3)
[2017-04-10] MEDS: DAPTOMYCIN 700 MG in SODIUM CHLORIDE 0.9% 100 ML IV SCH (10:00)
[2017-04-10] MEDS: HYDROCORTISONE 100 MG INJ. IVPush SCH ×2 (11:26→19:55)
[2017-04-10] MEDS: RIFAMPIN 600 MG in SODIUM CHLORIDE 0.9% 100 ML IV SCH (11:26)
[2017-04-10] MEDS: INSULIN DETEMIR 100 UNITS/ML, PEN SQ-INSULIN SCH ×2 (11:27→23:28)
[2017-04-10] MEDS: FENTANYL PF 2,500 MCG in SODIUM CHLORIDE 0.9% 200 ML IV PRN (16:11)
[2017-04-11] MEDS: HYDROCORTISONE 100 MG INJ. IVPush SCH ×3 (03:40→20:08)
[2017-04-11 04:00] VITALS: BP 116/64
[2017-04-11] MEDS: INSULIN ASPART 100 UNITS/ML, PEN SQ-INSULIN SCH ×4 (05:00→23:12)
[2017-04-11 05:28] LABS: ANION GAP 7 mmol/L (5-15); CALCIUM 7.4 mg/dL (8.5-10.1); CHLORIDE 104 mmol/L (98-107)
[2017-04-11 05:43] LABS: MEAN CORPUSCULAR HEMOGLOBIN 33.3 pg (27.5-34.5); MEAN CORPUSCULAR HGB CONC 34.3 g/dL (33.2-36.2); MEAN CORPUSCULAR VOLUME 97.1 fL (81-97); MEAN PLATELET VOLUME 11.6 fL (7.4-10.4); PLATELET COUNT 78 x10^3/uL (130-400); RED BLOOD COUNT 2.01 x10^6/uL (4.38-5.82); RED CELL DISTRIBUTION WIDTH 18.3 % (9.4-14.8)
[2017-04-11] MEDS: METOPROLOL TARTRATE 25 MG TABLET PO SCH (05:46)
[2017-04-11 06:22] LABS: BASOPHILS % (AUTO) 0 % (0-1); EOSINOPHILS # (AUTO) 0.01 x10^3/uL (0-0.4); EOSINOPHILS % (AUTO) 0 % (1-7); LYMPHOCYTES # (AUTO) 0.24 x10^3/uL (1-3.4); LYMPHOCYTES % (AUTO) 3 % (22-44); MD SCAN; MONOCYTES # (AUTO) 0.27 x10^3/uL (0.2-0.8); MONOCYTES % (AUTO) 4 % (2-9); NEUTROPHILS # (AUTO) 7.19 x10^3/uL (1.8-6.8); NEUTROPHILS % (AUTO) 93 % (42-75)
[2017-04-11] MEDS: VALPROATE SODIUM 250 MG/5 ML ORAL SOLN PO SCH ×3 (10:03→21:08)
[2017-04-11] MEDS: DEXAMETHASONE 4 MG/ML, 1ML IVPush SCH ×2 (10:03→21:08)
[2017-04-11] MEDS: SODIUM CHLORIDE FLUSH 10ML SYR IVF SCH ×2 (10:03→20:10)
[2017-04-11] MEDS: PAROXETINE 20 MG TABLET PO SCH (10:03)
[2017-04-11] MEDS: GABAPENTIN 250 MG/5 ML ORAL SOL PO SCH ×2 (10:03→21:08)
[2017-04-11] MEDS: INSULIN DETEMIR 100 UNITS/ML, PEN SQ-INSULIN SCH ×2 (11:21→23:12)
[2017-04-11] MEDS: RIFAMPIN 600 MG in SODIUM CHLORIDE 0.9% 100 ML IV SCH (12:18)
[2017-04-11 18:53] VITALS: BP 145/80
[2017-04-11 19:08] VITALS: BP 147/85
[2017-04-11 20:17] VITALS: BP 127/82
[2017-04-12 04:00] VITALS: BP 126/78
[2017-04-12] MEDS: INSULIN ASPART 100 UNITS/ML, PEN SQ-INSULIN SCH ×4 (04:48→23:50)
[2017-04-12] MEDS: HYDROCORTISONE 100 MG INJ. IVPush SCH ×3 (04:48→20:14)
[2017-04-12 05:30] LABS: CHLORIDE 104 mmol/L (98-107)
[2017-04-12 05:39] LABS: ANION GAP 8 mmol/L (5-15); CALCIUM 7.2 mg/dL (8.5-10.1); CREATININE 1.18 mg/dL (0.7-1.3)
[2017-04-12] MEDS: VALPROATE SODIUM 250 MG/5 ML ORAL SOLN PO SCH ×3 (08:32→20:14)
[2017-04-12] MEDS: PAROXETINE 20 MG TABLET PO SCH (08:32)
[2017-04-12] MEDS: GABAPENTIN 250 MG/5 ML ORAL SOL PO SCH ×2 (08:32→20:14)
[2017-04-12] MEDS: DEXAMETHASONE 4 MG/ML, 1ML IVPush SCH ×2 (08:33→20:14)
[2017-04-12] MEDS: SODIUM CHLORIDE FLUSH 10ML SYR IVF SCH ×2 (08:33→20:15)
[2017-04-12] MEDS: DAPTOMYCIN 700 MG in SODIUM CHLORIDE 0.9% 100 ML IV SCH (11:49)
[2017-04-12] MEDS: INSULIN DETEMIR 100 UNITS/ML, PEN SQ-INSULIN SCH ×2 (11:49→23:51)
[2017-04-12] MEDS: RIFAMPIN 600 MG in SODIUM CHLORIDE 0.9% 100 ML IV SCH (12:45)
[2017-04-12 14:57] LABS: MEAN CORPUSCULAR HEMOGLOBIN 31.1 pg (27.5-34.5); MEAN CORPUSCULAR HGB CONC 31.9 g/dL (33.2-36.2); MEAN CORPUSCULAR VOLUME 97.5 fL (81-97); MEAN PLATELET VOLUME 10.2 fL (7.4-10.4); PLATELET COUNT 123 x10^3/uL (130-400); RED CELL DISTRIBUTION WIDTH 17.9 % (9.4-14.8)
[2017-04-12 15:20] LABS: MD YES
[2017-04-12 15:23] LABS: BANDS%(MANUAL) 4 % (0-7); BASOS% (MANUAL) 1 % (0-1); LYMPHS% (MANUAL) 5 % (22-44); MONOS% (MANUAL) 3 % (2-9); SEG#(MANUAL) 8.61 x10^3/uL (1.8-6.8); SEGS% (MANUAL) 87 % (42-75)
[2017-04-12 15:24] LABS: ANISOCYTOSIS 2+
[2017-04-12 15:25] LABS: <PLATELET ESTIMATE> ADEQUATE; <PLT MORPHOLOGY> NORMAL PLT MORPH
[2017-04-12] MEDS: SENNA/DOCUSATE TABLET NG PRN (20:14)
[2017-04-12] MEDS: FENTANYL PF 2,500 MCG in SODIUM CHLORIDE 0.9% 200 ML IV PRN (20:55)
[2017-04-13 04:00] VITALS: BP 110/61
[2017-04-13] MEDS: HYDROCORTISONE 100 MG INJ. IVPush SCH (04:52)
[2017-04-13 04:55] LABS: MEAN CORPUSCULAR HEMOGLOBIN 32.8 pg (27.5-34.5); MEAN CORPUSCULAR HGB CONC 33.5 g/dL (33.2-36.2); MEAN CORPUSCULAR VOLUME 97.8 fL (81-97); MEAN PLATELET VOLUME 10.6 fL (7.4-10.4); PLATELET COUNT 110 x10^3/uL (130-400); RED BLOOD COUNT 2.34 x10^6/uL (4.38-5.82); RED CELL DISTRIBUTION WIDTH 18.3 % (9.4-14.8)
[2017-04-13] MEDS: INSULIN ASPART 100 UNITS/ML, PEN SQ-INSULIN SCH ×4 (05:00→22:48)
[2017-04-13 05:06] LABS: ALBUMIN 1.4 g/dL (3.4-5.0); ANION GAP 4 mmol/L (5-15); CALCIUM 6.6 mg/dL (8.5-10.1); CHLORIDE 105 mmol/L (98-107)
[2017-04-13 05:09] LABS: ALANINE AMINOTRANSFERASE 24 U/L (12-78); ALKALINE PHOSPHATASE 70 U/L (45-117); BILIRUBIN,TOTAL 0.2 mg/dL (0.2-1.0); CREATININE 1.17 mg/dL (0.7-1.3); TOTAL PROTEIN 5.5 g/dL (6.4-8.2)
[2017-04-13 05:46] LABS: BASOPHILS # (AUTO) 0.02 x10^3/uL (0-0.1); BASOPHILS % (AUTO) 0 % (0-1); EOSINOPHILS # (AUTO) 0.06 x10^3/uL (0-0.4); EOSINOPHILS % (AUTO) 1 % (1-7); LYMPHOCYTES # (AUTO) 0.53 x10^3/uL (1-3.4); LYMPHOCYTES % (AUTO) 6 % (22-44); MD SCAN; MONOCYTES # (AUTO) 0.48 x10^3/uL (0.2-0.8); MONOCYTES % (AUTO) 5 % (2-9); NEUTROPHILS # (AUTO) 8.06 x10^3/uL (1.8-6.8); NEUTROPHILS % (AUTO) 88 % (42-75)
[2017-04-13] MEDS: DEXAMETHASONE 4 MG/ML, 1ML IVPush SCH ×2 (08:31→20:26)
[2017-04-13] MEDS: PAROXETINE 20 MG TABLET PO SCH (08:31)
[2017-04-13] MEDS: SODIUM CHLORIDE FLUSH 10ML SYR IVF SCH ×2 (08:31→20:26)
[2017-04-13] MEDS: VALPROATE SODIUM 250 MG/5 ML ORAL SOLN PO SCH ×3 (08:31→20:27)
[2017-04-13] MEDS ORDERED: ALBUMIN HUMAN 25% 100 ML IV PRN (09:00)
[2017-04-13] MEDS ORDERED: FUROSEMIDE 20 MG/2 ML IV SCH (09:00)
[2017-04-13] MEDS ORDERED: FUROSEMIDE 20 MG/2 ML ONE (09:12)
[2017-04-13] MEDS: ALBUMIN HUMAN 25%, 25GM/100ML IV SCH ×3 (09:44→11:00)
[2017-04-13] MEDS: INSULIN DETEMIR 100 UNITS/ML, PEN SQ-INSULIN SCH ×2 (11:08→22:49)
[2017-04-13] MEDS: RIFAMPIN 600 MG in SODIUM CHLORIDE 0.9% 100 ML IV SCH (14:18)
[2017-04-13] MEDS: FUROSEMIDE 100 MG/10 ML IV SCH (20:26)
[2017-04-14 05:16] VITALS: BP 111/61
[2017-04-14] MEDS: INSULIN ASPART 100 UNITS/ML, PEN SQ-INSULIN SCH ×4 (06:18→23:00)
[2017-04-14 07:09] LABS: MEAN CORPUSCULAR HEMOGLOBIN 32.8 pg (27.5-34.5); MEAN CORPUSCULAR HGB CONC 33.7 g/dL (33.2-36.2); MEAN CORPUSCULAR VOLUME 97.3 fL (81-97); MEAN PLATELET VOLUME 9.2 fL (7.4-10.4); PLATELET COUNT 103 x10^3/uL (130-400); RED BLOOD COUNT 2.35 x10^6/uL (4.38-5.82); RED CELL DISTRIBUTION WIDTH 18.2 % (9.4-14.8)
[2017-04-14 07:14] LABS: ALBUMIN 2.3 g/dL (3.4-5.0); ANION GAP 6 mmol/L (5-15); CALCIUM 7.3 mg/dL (8.5-10.1); CHLORIDE 104 mmol/L (98-107)
[2017-04-14 07:18] LABS: % IRON SATURATION 13 % (20-55); ALANINE AMINOTRANSFERASE 38 U/L (12-78); ALKALINE PHOSPHATASE 58 U/L (45-117); BILIRUBIN,TOTAL 0.4 mg/dL (0.2-1.0); CREATINE KINASE, TOTAL 62 U/L (39-308); CREATININE 0.96 mg/dL (0.7-1.3); IRON LEVEL 16 mcg/dL (65-175); TOTAL IRON BINDING CAPACITY 123 mcg/dL (250-450); TOTAL PROTEIN 5.9 g/dL (6.4-8.2)
[2017-04-14] MEDS: PAROXETINE 20 MG TABLET PO SCH (07:55)
[2017-04-14] MEDS: VALPROATE SODIUM 250 MG/5 ML ORAL SOLN PO SCH ×3 (07:55→20:47)
[2017-04-14] MEDS: SODIUM CHLORIDE FLUSH 10ML SYR IVF SCH ×2 (07:55→20:47)
[2017-04-14] MEDS: DEXAMETHASONE 4 MG/ML, 1ML IVPush SCH ×2 (07:56→20:47)
[2017-04-14] MEDS: FUROSEMIDE 100 MG/10 ML IV SCH ×2 (07:57→20:46)
[2017-04-14 08:56] LABS: BASOPHILS # (AUTO) 0.02 x10^3/uL (0-0.1); BASOPHILS % (AUTO) 0 % (0-1); EOSINOPHILS # (AUTO) 0.23 x10^3/uL (0-0.4); EOSINOPHILS % (AUTO) 2 % (1-7); LYMPHOCYTES # (AUTO) 0.46 x10^3/uL (1-3.4); LYMPHOCYTES % (AUTO) 5 % (22-44); MD SCAN; MONOCYTES # (AUTO) 0.48 x10^3/uL (0.2-0.8); MONOCYTES % (AUTO) 5 % (2-9); NEUTROPHILS # (AUTO) 9.16 x10^3/uL (1.8-6.8); NEUTROPHILS % (AUTO) 89 % (42-75)
[2017-04-14] MEDS: IRON SUCROSE COMPLEX 100MG/5ML IV SCH (11:18)
[2017-04-14] MEDS: DAPTOMYCIN 700 MG in SODIUM CHLORIDE 0.9% 100 ML IV SCH (11:18)
[2017-04-14] MEDS: FENTANYL PF 2,500 MCG in SODIUM CHLORIDE 0.9% 200 ML IV PRN (11:19)
[2017-04-14] MEDS: INSULIN DETEMIR 100 UNITS/ML, PEN SQ-INSULIN SCH ×2 (11:22→23:53)
[2017-04-14] MEDS: RIFAMPIN 600 MG in SODIUM CHLORIDE 0.9% 100 ML IV SCH (13:11)
[2017-04-14] MEDS ORDERED: BISACODYL 10 MG SUPP PR PRN (16:00)
[2017-04-14] MEDS ORDERED: ACETAMINOPHEN 650 MG SUPP PR PRN (16:00)
[2017-04-14] MEDS ORDERED: ONDANSETRON 2MG/ML, 2ML IVPush PRN (16:00)
[2017-04-14] MEDS ORDERED: LACTULOSE 20 GM/30 ML UDC NG PRN (16:00)
[2017-04-14] MEDS ORDERED: ACETAMINOPHEN 325 MG TABLET PO PRN (16:00)
[2017-04-14] MEDS ORDERED: PHARMACY MAY ADJ FOR RENAL FX MC SCH (16:00)
[2017-04-15 04:00] VITALS: BP 113/60
[2017-04-15 04:42] LABS: MEAN CORPUSCULAR HEMOGLOBIN 32.9 pg (27.5-34.5); MEAN CORPUSCULAR HGB CONC 33.6 g/dL (33.2-36.2); MEAN CORPUSCULAR VOLUME 97.7 fL (81-97); MEAN PLATELET VOLUME 9.3 fL (7.4-10.4); PLATELET COUNT 129 x10^3/uL (130-400); RED CELL DISTRIBUTION WIDTH 19.5 % (9.4-14.8)
[2017-04-15 04:45] LABS: HCT (SEDRATE) 21.5 % (39.2-51.8)
[2017-04-15 04:49] LABS: ALANINE AMINOTRANSFERASE 34 U/L (12-78); ANION GAP 6 mmol/L (5-15); CALCIUM 7.2 mg/dL (8.5-10.1); CHLORIDE 106 mmol/L (98-107); CREATININE 0.96 mg/dL (0.7-1.3)
[2017-04-15 04:57] LABS: ALKALINE PHOSPHATASE 57 U/L (45-117); BILIRUBIN,TOTAL 0.3 mg/dL (0.2-1.0); CREATINE KINASE, TOTAL 50 U/L (39-308); TOTAL PROTEIN 5.6 g/dL (6.4-8.2)
[2017-04-15] MEDS: INSULIN ASPART 100 UNITS/ML, PEN SQ-INSULIN SCH ×4 (05:00→23:00)
[2017-04-15 05:09] LABS: SEDIMENTATION RATE 66 mm/hr (0-10)
[2017-04-15] MEDS ORDERED: DEXTROSE 50%, 50ML SYRINGE ONE (05:22)
[2017-04-15 05:36] LABS: BASOPHILS # (AUTO) 0.01 x10^3/uL (0-0.1); BASOPHILS % (AUTO) 0 % (0-1); EOSINOPHILS # (AUTO) 0.24 x10^3/uL (0-0.4); EOSINOPHILS % (AUTO) 2 % (1-7); LYMPHOCYTES # (AUTO) 0.49 x10^3/uL (1-3.4); LYMPHOCYTES % (AUTO) 4 % (22-44); MD SCAN; MONOCYTES # (AUTO) 0.48 x10^3/uL (0.2-0.8); MONOCYTES % (AUTO) 4 % (2-9); NEUTROPHILS # (AUTO) 10.27 x10^3/uL (1.8-6.8); NEUTROPHILS % (AUTO) 89 % (42-75)
[2017-04-15] MEDS: FUROSEMIDE 100 MG/10 ML IV SCH ×2 (09:18→20:42)
[2017-04-15] MEDS: IRON SUCROSE COMPLEX 100MG/5ML IV SCH (09:18)
[2017-04-15] MEDS: DEXAMETHASONE 4 MG/ML, 1ML IVPush SCH ×2 (09:19→20:42)
[2017-04-15] MEDS: SODIUM CHLORIDE FLUSH 10ML SYR IVF SCH ×2 (09:19→20:42)
[2017-04-15] MEDS: VALPROATE SODIUM 250 MG/5 ML ORAL SOLN PO SCH ×3 (09:20→20:43)
[2017-04-15] MEDS: PAROXETINE 20 MG TABLET PO SCH (09:20)
[2017-04-15] MEDS ORDERED: POTASSIUM CHLORIDE 40 MEQ in SODIUM CHLORIDE 0.9% 100 ML IV ONE (09:30)
[2017-04-15] MEDS ORDERED: POTASSIUM PHOSPHATE 44 MEQ in SODIUM CHLORIDE 0.9% 500 ML IV ONE (09:30)
[2017-04-15] MEDS: RIFAMPIN 600 MG in SODIUM CHLORIDE 0.9% 100 ML IV SCH (16:10)
[2017-04-16] MEDS: INSULIN ASPART 100 UNITS/ML, PEN SQ-INSULIN SCH ×4 (04:07→23:28)
[2017-04-16 04:14] VITALS: BP 149/78
[2017-04-16 05:13] LABS: MEAN CORPUSCULAR HGB CONC 33.5 g/dL (33.2-36.2); MEAN CORPUSCULAR VOLUME 98.4 fL (81-97); MEAN PLATELET VOLUME 9.3 fL (7.4-10.4); PLATELET COUNT 145 x10^3/uL (130-400); RED BLOOD COUNT 2.29 x10^6/uL (4.38-5.82); RED CELL DISTRIBUTION WIDTH 19.9 % (9.4-14.8)
[2017-04-16 05:18] LABS: CHLORIDE 105 mmol/L (98-107)
[2017-04-16 05:26] LABS: ANION GAP 7 mmol/L (5-15); BILIRUBIN,TOTAL 0.3 mg/dL (0.2-1.0); CALCIUM 7.3 mg/dL (8.5-10.1); CREATININE 0.97 mg/dL (0.7-1.3)
[2017-04-16 05:27] LABS: ALANINE AMINOTRANSFERASE 49 U/L (12-78); ALKALINE PHOSPHATASE 69 U/L (45-117)
[2017-04-16 05:37] LABS: BASOPHILS # (AUTO) 0.01 x10^3/uL (0-0.1); BASOPHILS % (AUTO) 0 % (0-1); EOSINOPHILS # (AUTO) 0.43 x10^3/uL (0-0.4); EOSINOPHILS % (AUTO) 4 % (1-7); LYMPHOCYTES # (AUTO) 0.44 x10^3/uL (1-3.4); LYMPHOCYTES % (AUTO) 5 % (22-44); MD SCAN; MONOCYTES # (AUTO) 0.47 x10^3/uL (0.2-0.8); MONOCYTES % (AUTO) 5 % (2-9); NEUTROPHILS # (AUTO) 8.37 x10^3/uL (1.8-6.8); NEUTROPHILS % (AUTO) 86 % (42-75)
[2017-04-16] MEDS: IRON SUCROSE COMPLEX 100MG/5ML IV SCH (07:18)
[2017-04-16] MEDS: SODIUM CHLORIDE FLUSH 10ML SYR IVF SCH ×2 (07:19→21:01)
[2017-04-16] MEDS: VALPROATE SODIUM 250 MG/5 ML ORAL SOLN PO SCH ×3 (07:19→21:02)
[2017-04-16] MEDS: PAROXETINE 20 MG TABLET PO SCH (07:19)
[2017-04-16] MEDS: DEXAMETHASONE 4 MG/ML, 1ML IVPush SCH ×2 (07:19→21:01)
[2017-04-16] MEDS: FUROSEMIDE 100 MG/10 ML IV SCH ×2 (07:19→21:01)
[2017-04-16] MEDS: DAPTOMYCIN 700 MG in SODIUM CHLORIDE 0.9% 100 ML IV SCH (10:51)
[2017-04-16] MEDS: RIFAMPIN 600 MG in SODIUM CHLORIDE 0.9% 100 ML IV SCH (12:29)
[2017-04-17 04:00] VITALS: BP 121/49
[2017-04-17 05:17] LABS: ALANINE AMINOTRANSFERASE 40 U/L (12-78); ALBUMIN 1.8 g/dL (3.4-5.0); ANION GAP 4 mmol/L (5-15); CALCIUM 7.6 mg/dL (8.5-10.1); CHLORIDE 108 mmol/L (98-107); CREATININE 0.79 mg/dL (0.7-1.3)
[2017-04-17 05:20] LABS: ALKALINE PHOSPHATASE 58 U/L (45-117); BILIRUBIN,TOTAL 0.3 mg/dL (0.2-1.0); TOTAL PROTEIN 5.7 g/dL (6.4-8.2)
[2017-04-17] MEDS: INSULIN ASPART 100 UNITS/ML, PEN SQ-INSULIN SCH ×4 (05:30→23:05)
[2017-04-17 05:36] LABS: MEAN CORPUSCULAR HEMOGLOBIN 34.2 pg (27.5-34.5); MEAN CORPUSCULAR HGB CONC 34.7 g/dL (33.2-36.2); MEAN CORPUSCULAR VOLUME 98.4 fL (81-97); MEAN PLATELET VOLUME 8.5 fL (7.4-10.4); PLATELET COUNT 153 x10^3/uL (130-400); RED BLOOD COUNT 2.08 x10^6/uL (4.38-5.82); RED CELL DISTRIBUTION WIDTH 20.1 % (9.4-14.8)
[2017-04-17 05:53] LABS: BASOPHILS # (AUTO) 0.01 x10^3/uL (0-0.1); BASOPHILS % (AUTO) 0 % (0-1); EOSINOPHILS # (AUTO) 0.34 x10^3/uL (0-0.4); EOSINOPHILS % (AUTO) 5 % (1-7); LYMPHOCYTES # (AUTO) 0.23 x10^3/uL (1-3.4); LYMPHOCYTES % (AUTO) 4 % (22-44); MD SCAN; MONOCYTES # (AUTO) 0.41 x10^3/uL (0.2-0.8); MONOCYTES % (AUTO) 6 % (2-9); NEUTROPHILS # (AUTO) 5.56 x10^3/uL (1.8-6.8); NEUTROPHILS % (AUTO) 85 % (42-75)
[2017-04-17] MEDS: FENTANYL PF 2,500 MCG in SODIUM CHLORIDE 0.9% 200 ML IV PRN (08:41)
[2017-04-17] MEDS: PAROXETINE 20 MG TABLET PO SCH (08:46)
[2017-04-17] MEDS: IRON SUCROSE COMPLEX 100MG/5ML IV SCH (08:46)
[2017-04-17] MEDS: DEXAMETHASONE 4 MG/ML, 1ML IVPush SCH ×2 (08:48→21:34)
[2017-04-17] MEDS: SODIUM CHLORIDE FLUSH 10ML SYR IVF SCH ×2 (08:48→21:34)
[2017-04-17] MEDS: VALPROATE SODIUM 250 MG/5 ML ORAL SOLN PO SCH ×3 (08:49→22:59)
[2017-04-17] MEDS: FUROSEMIDE 40 MG/4 ML IV SCH ×2 (09:00→21:34)
[2017-04-17] MEDS: RIFAMPIN 600 MG in SODIUM CHLORIDE 0.9% 100 ML IV SCH (13:14)
[2017-04-18 04:00] VITALS: BP 142/104
[2017-04-18 04:44] LABS: ANION GAP 6 mmol/L (5-15); CALCIUM 7.7 mg/dL (8.5-10.1); CHLORIDE 109 mmol/L (98-107)
[2017-04-18 04:45] LABS: BASOPHILS # (AUTO) 0.03 x10^3/uL (0-0.1); BASOPHILS % (AUTO) 0 % (0-1); EOSINOPHILS % (AUTO) 6 % (1-7); LYMPHOCYTES % (AUTO) 7 % (22-44); MD NO; MEAN CORPUSCULAR HEMOGLOBIN 32.6 pg (27.5-34.5); MEAN CORPUSCULAR HGB CONC 32.7 g/dL (33.2-36.2); MEAN CORPUSCULAR VOLUME 99.8 fL (81-97); MEAN PLATELET VOLUME 8.8 fL (7.4-10.4); MONOCYTES # (AUTO) 0.61 x10^3/uL (0.2-0.8); MONOCYTES % (AUTO) 9 % (2-9); NEUTROPHILS # (AUTO) 5.37 x10^3/uL (1.8-6.8); NEUTROPHILS % (AUTO) 78 % (42-75); PLATELET COUNT 169 x10^3/uL (130-400); RED BLOOD COUNT 2.34 x10^6/uL (4.38-5.82); RED CELL DISTRIBUTION WIDTH 20.5 % (9.4-14.8)
[2017-04-18 04:47] LABS: ALANINE AMINOTRANSFERASE 34 U/L (12-78); ALKALINE PHOSPHATASE 63 U/L (45-117); BILIRUBIN,TOTAL 0.3 mg/dL (0.2-1.0); CREATININE 0.81 mg/dL (0.7-1.3); TOTAL PROTEIN 6.3 g/dL (6.4-8.2)
[2017-04-18] MEDS: INSULIN ASPART 100 UNITS/ML, PEN SQ-INSULIN SCH ×4 (04:55→23:00)
[2017-04-18] MEDS: VALPROATE SODIUM 250 MG/5 ML ORAL SOLN PO SCH ×3 (07:42→21:24)
[2017-04-18] MEDS: PAROXETINE 20 MG TABLET PO SCH (07:42)
[2017-04-18] MEDS: IRON SUCROSE COMPLEX 100MG/5ML IV SCH (07:42)
[2017-04-18] MEDS: DEXAMETHASONE 4 MG/ML, 1ML IVPush SCH ×2 (07:42→21:24)
[2017-04-18] MEDS: FUROSEMIDE 40 MG/4 ML IV SCH ×2 (07:42→21:24)
[2017-04-18] MEDS ORDERED: FUROSEMIDE 40 MG/4 ML IV SCH (09:00)
[2017-04-18] MEDS ORDERED: POTASSIUM PHOSPHATE 44 MEQ in SODIUM CHLORIDE 0.9% 500 ML IV ONE (09:00)
[2017-04-18] MEDS: SODIUM CHLORIDE FLUSH 10ML SYR IVF SCH ×2 (09:00→21:23)
[2017-04-18] MEDS: DAPTOMYCIN 700 MG in SODIUM CHLORIDE 0.9% 100 ML IV SCH (11:52)
[2017-04-18] MEDS: RIFAMPIN 600 MG in SODIUM CHLORIDE 0.9% 100 ML IV SCH (11:53)
[2017-04-18] MEDS ORDERED: ERGOCALCIFEROL 50,000 UNIT CAPSULE PO SCH (12:30)
[2017-04-19] VITALS (11 sets, daily range): BP systolic 133–161; BP diastolic 71–91
[2017-04-19] MEDS: INSULIN ASPART 100 UNITS/ML, PEN SQ-INSULIN SCH ×4 (05:00→22:30)
[2017-04-19 05:27] LABS: BASOPHILS # (AUTO) 0.01 x10^3/uL (0-0.1); BASOPHILS % (AUTO) 0 % (0-1); EOSINOPHILS # (AUTO) 0.52 x10^3/uL (0-0.4); EOSINOPHILS % (AUTO) 7 % (1-7); LYMPHOCYTES % (AUTO) 8 % (22-44); MD NO; MEAN CORPUSCULAR HEMOGLOBIN 33.4 pg (27.5-34.5); MEAN CORPUSCULAR HGB CONC 33.2 g/dL (33.2-36.2); MEAN CORPUSCULAR VOLUME 100.7 fL (81-97); MEAN PLATELET VOLUME 8.5 fL (7.4-10.4); MONOCYTES # (AUTO) 0.73 x10^3/uL (0.2-0.8); MONOCYTES % (AUTO) 10 % (2-9); NEUTROPHILS # (AUTO) 5.49 x10^3/uL (1.8-6.8); NEUTROPHILS % (AUTO) 75 % (42-75); PLATELET COUNT 166 x10^3/uL (130-400); RED BLOOD COUNT 2.01 x10^6/uL (4.38-5.82); RED CELL DISTRIBUTION WIDTH 21.6 % (9.4-14.8)
[2017-04-19 05:28] LABS: ALANINE AMINOTRANSFERASE 28 U/L (12-78); ALBUMIN 1.7 g/dL (3.4-5.0); ANION GAP 7 mmol/L (5-15); CALCIUM 7.3 mg/dL (8.5-10.1); CHLORIDE 112 mmol/L (98-107); CREATININE 0.83 mg/dL (0.7-1.3)
[2017-04-19 05:31] LABS: ALKALINE PHOSPHATASE 57 U/L (45-117); BILIRUBIN,TOTAL 0.2 mg/dL (0.2-1.0); TOTAL PROTEIN 5.7 g/dL (6.4-8.2)
[2017-04-19] MEDS: FENTANYL PF 2,500 MCG in SODIUM CHLORIDE 0.9% 200 ML IV PRN (06:37)
[2017-04-19] MEDS: DEXAMETHASONE 4 MG/ML, 1ML IVPush SCH ×2 (09:44→20:08)
[2017-04-19] MEDS: VALPROATE SODIUM 250 MG/5 ML ORAL SOLN PO SCH ×3 (09:45→20:08)
[2017-04-19] MEDS: PAROXETINE 20 MG TABLET PO SCH (09:45)
[2017-04-19] MEDS ORDERED: ERGOCALCIFEROL 8,000UNIT/ML ONE (12:00)
[2017-04-19] MEDS ORDERED: ERGOCALCIFEROL 50000 UNIT NG SCH (12:00)
[2017-04-19] MEDS: RIFAMPIN 600 MG in SODIUM CHLORIDE 0.9% 100 ML IV SCH (12:39)
[2017-04-19] MEDS ORDERED: GADOBUTROL 10 MMOL/10 ML PFS ONE (14:38)
[2017-04-19] MEDS: SODIUM CHLORIDE FLUSH 10ML SYR IVF SCH ×2 (16:00→20:08)
[2017-04-20 04:48] LABS: ALANINE AMINOTRANSFERASE 27 U/L (12-78); ALBUMIN 1.7 g/dL (3.4-5.0); ANION GAP 4 mmol/L (5-15); CALCIUM 7.2 mg/dL (8.5-10.1); CHLORIDE 112 mmol/L (98-107); CREATININE 0.84 mg/dL (0.7-1.3)
[2017-04-20 04:50] LABS: ALKALINE PHOSPHATASE 57 U/L (45-117); BILIRUBIN,TOTAL 0.3 mg/dL (0.2-1.0); TOTAL PROTEIN 5.4 g/dL (6.4-8.2)
[2017-04-20 04:53] VITALS: BP 139/46
[2017-04-20] MEDS: INSULIN ASPART 100 UNITS/ML, PEN SQ-INSULIN SCH ×4 (05:00→23:00)
[2017-04-20 05:04] LABS: BASOPHILS # (AUTO) 0.02 x10^3/uL (0-0.1); BASOPHILS % (AUTO) 0 % (0-1); EOSINOPHILS # (AUTO) 0.57 x10^3/uL (0-0.4); EOSINOPHILS % (AUTO) 8 % (1-7); LYMPHOCYTES # (AUTO) 0.75 x10^3/uL (1-3.4); LYMPHOCYTES % (AUTO) 10 % (22-44); MD NO; MEAN CORPUSCULAR HEMOGLOBIN 32.8 pg (27.5-34.5); MEAN CORPUSCULAR HGB CONC 33.5 g/dL (33.2-36.2); MEAN CORPUSCULAR VOLUME 97.8 fL (81-97); MEAN PLATELET VOLUME 8.4 fL (7.4-10.4); MONOCYTES # (AUTO) 0.56 x10^3/uL (0.2-0.8); MONOCYTES % (AUTO) 7 % (2-9); NEUTROPHILS # (AUTO) 5.77 x10^3/uL (1.8-6.8); NEUTROPHILS % (AUTO) 75 % (42-75); PLATELET COUNT 158 x10^3/uL (130-400); RED BLOOD COUNT 2.42 x10^6/uL (4.38-5.82); RED CELL DISTRIBUTION WIDTH 20.7 % (9.4-14.8)
[2017-04-20] MEDS: VALPROATE SODIUM 250 MG/5 ML ORAL SOLN PO SCH ×3 (08:08→20:41)
[2017-04-20] MEDS: DEXAMETHASONE 4 MG/ML, 1ML IVPush SCH (08:09)
[2017-04-20] MEDS: PAROXETINE 20 MG TABLET PO SCH (08:09)
[2017-04-20] MEDS ORDERED: FENTANYL 50 MCG PATCH TD SCH (09:00)
[2017-04-20] MEDS ORDERED: FENTANYL REMOVE PATCH NOTE XX SCH (09:00)
[2017-04-20] MEDS: SODIUM CHLORIDE FLUSH 10ML SYR IVF SCH ×2 (10:37→20:40)
[2017-04-20] MEDS: DAPTOMYCIN 700 MG in SODIUM CHLORIDE 0.9% 100 ML IV SCH (11:28)
[2017-04-20] MEDS: RIFAMPIN 600 MG in SODIUM CHLORIDE 0.9% 100 ML IV SCH (12:20)
[2017-04-21 04:17] VITALS: BP 139/79
[2017-04-21 04:34] LABS: BASOPHILS # (AUTO) 0.04 x10^3/uL (0-0.1); BASOPHILS % (AUTO) 1 % (0-1); EOSINOPHILS # (AUTO) 0.64 x10^3/uL (0-0.4); EOSINOPHILS % (AUTO) 7 % (1-7); LYMPHOCYTES # (AUTO) 0.75 x10^3/uL (1-3.4); LYMPHOCYTES % (AUTO) 8 % (22-44); MD NO; MEAN CORPUSCULAR HEMOGLOBIN 33.5 pg (27.5-34.5); MEAN CORPUSCULAR HGB CONC 34.5 g/dL (33.2-36.2); MEAN CORPUSCULAR VOLUME 97.2 fL (81-97); MEAN PLATELET VOLUME 7.9 fL (7.4-10.4); MONOCYTES # (AUTO) 0.56 x10^3/uL (0.2-0.8); MONOCYTES % (AUTO) 6 % (2-9); NEUTROPHILS # (AUTO) 7.65 x10^3/uL (1.8-6.8); NEUTROPHILS % (AUTO) 79 % (42-75); PLATELET COUNT 178 x10^3/uL (130-400); RED CELL DISTRIBUTION WIDTH 20.2 % (9.4-14.8)
[2017-04-21 04:51] LABS: ALANINE AMINOTRANSFERASE 31 U/L (12-78); ALBUMIN 1.8 g/dL (3.4-5.0); ANION GAP 6 mmol/L (5-15); CALCIUM 7.4 mg/dL (8.5-10.1); CHLORIDE 113 mmol/L (98-107); CREATININE 0.83 mg/dL (0.7-1.3)
[2017-04-21 04:53] LABS: ALKALINE PHOSPHATASE 58 U/L (45-117); BILIRUBIN,TOTAL 0.4 mg/dL (0.2-1.0); TOTAL PROTEIN 5.9 g/dL (6.4-8.2)
[2017-04-21] MEDS: INSULIN ASPART 100 UNITS/ML, PEN SQ-INSULIN SCH ×4 (05:35→23:00)
[2017-04-21] MEDS ORDERED: SODIUM PHOSPHATE 20 MMOL in SODIUM CHLORIDE 0.9% 500 ML IV ONE (07:30)
[2017-04-21] MEDS: PAROXETINE 20 MG TABLET PO SCH (07:40)
[2017-04-21] MEDS: VALPROATE SODIUM 250 MG/5 ML ORAL SOLN PO SCH ×3 (07:40→19:38)
[2017-04-21] MEDS: SODIUM CHLORIDE FLUSH 10ML SYR IVF SCH ×2 (07:41→19:38)
[2017-04-21] MEDS ORDERED: DEXAMETHASONE 4 MG/ML, 1ML IVPush SCH (09:00)
[2017-04-21] MEDS: RIFAMPIN 600 MG in SODIUM CHLORIDE 0.9% 100 ML IV SCH (10:55)
[2017-04-21] MEDS: FENTANYL PF 100 MCG/2ML IVPush PRN ×3 (15:09→21:09)
[2017-04-21] MEDS ORDERED: LIDOCAINE-MPF 1%, 2ML ENDO PRN (16:00)
[2017-04-21] MEDS ORDERED: PHARMACY MAY ADJ FOR RENAL FX MC SCH (16:00)
[2017-04-21] MEDS ORDERED: BISACODYL 10 MG SUPP PR PRN (16:00)
[2017-04-21] MEDS ORDERED: LACTULOSE 20 GM/30 ML UDC NG PRN (16:00)
[2017-04-21] MEDS ORDERED: ACETAMINOPHEN 325 MG TABLET PO PRN (16:00)
[2017-04-21] MEDS ORDERED: ACETAMINOPHEN 650 MG SUPP PR PRN (16:00)
[2017-04-21] MEDS: hydrALAzine 20 MG/ML, 1ML IVPush PRN (18:07)
[2017-04-22] MEDS: FENTANYL PF 100 MCG/2ML IVPush PRN ×7 (00:43→23:54)
[2017-04-22 04:11] VITALS: BP 130/72
[2017-04-22 04:48] LABS: BASOPHILS # (AUTO) 0.01 x10^3/uL (0-0.1); BASOPHILS % (AUTO) 0 % (0-1); EOSINOPHILS # (AUTO) 0.75 x10^3/uL (0-0.4); EOSINOPHILS % (AUTO) 8 % (1-7); LYMPHOCYTES # (AUTO) 0.68 x10^3/uL (1-3.4); LYMPHOCYTES % (AUTO) 8 % (22-44); MD NO; MEAN CORPUSCULAR HEMOGLOBIN 32.9 pg (27.5-34.5); MEAN CORPUSCULAR HGB CONC 33.3 g/dL (33.2-36.2); MEAN CORPUSCULAR VOLUME 98.8 fL (81-97); MONOCYTES # (AUTO) 0.51 x10^3/uL (0.2-0.8); MONOCYTES % (AUTO) 6 % (2-9); NEUTROPHILS # (AUTO) 6.96 x10^3/uL (1.8-6.8); NEUTROPHILS % (AUTO) 78 % (42-75); PLATELET COUNT 177 x10^3/uL (130-400); RED BLOOD COUNT 2.46 x10^6/uL (4.38-5.82)
[2017-04-22 04:58] LABS: CHLORIDE 114 mmol/L (98-107)
[2017-04-22 05:04] LABS: ALANINE AMINOTRANSFERASE 30 U/L (12-78); ALBUMIN 1.7 g/dL (3.4-5.0); ALKALINE PHOSPHATASE 59 U/L (45-117); ANION GAP 6 mmol/L (5-15); BILIRUBIN,TOTAL 0.3 mg/dL (0.2-1.0); CREATININE 0.84 mg/dL (0.7-1.3); TOTAL PROTEIN 5.5 g/dL (6.4-8.2)
[2017-04-22] MEDS: INSULIN ASPART 100 UNITS/ML, PEN SQ-INSULIN SCH ×4 (05:29→23:00)
[2017-04-22] MEDS ORDERED: FENTANYL 75 MCG PATCH TD SCH (08:30)
[2017-04-22] MEDS: PAROXETINE 20 MG TABLET PO SCH (08:46)
[2017-04-22] MEDS: VALPROATE SODIUM 250 MG/5 ML ORAL SOLN PO SCH ×3 (08:46→20:32)
[2017-04-22] MEDS: DEXAMETHASONE 4 MG/ML, 1ML IVPush SCH (08:46)
[2017-04-22] MEDS: SODIUM CHLORIDE FLUSH 10ML SYR IVF SCH ×2 (08:54→20:32)
[2017-04-22 11:12] LABS: C-REACTIVE PROTEIN, QUANT 3.4 mg/dL (0.02-0.49)
[2017-04-22 11:30] LABS: HCT (SEDRATE) 26.8 % (39.2-51.8)
[2017-04-22] MEDS: DAPTOMYCIN 700 MG in SODIUM CHLORIDE 0.9% 100 ML IV SCH (12:36)
[2017-04-23 04:00] VITALS: BP 116/66
[2017-04-23 04:29] LABS: MEAN CORPUSCULAR HEMOGLOBIN 33.2 pg (27.5-34.5); MEAN CORPUSCULAR HGB CONC 33.8 g/dL (33.2-36.2); MEAN CORPUSCULAR VOLUME 98.1 fL (81-97); PLATELET COUNT 161 x10^3/uL (130-400); RED BLOOD COUNT 2.34 x10^6/uL (4.38-5.82); RED CELL DISTRIBUTION WIDTH 20.5 % (9.4-14.8)
[2017-04-23 04:44] LABS: CALCIUM 7.3 mg/dL (8.5-10.1); CHLORIDE 112 mmol/L (98-107)
[2017-04-23 04:49] LABS: ALANINE AMINOTRANSFERASE 31 U/L (12-78); ALBUMIN 1.7 g/dL (3.4-5.0); ALKALINE PHOSPHATASE 57 U/L (45-117); ANION GAP 6 mmol/L (5-15); BILIRUBIN,TOTAL 0.4 mg/dL (0.2-1.0); CREATININE 0.85 mg/dL (0.7-1.3); TOTAL PROTEIN 5.8 g/dL (6.4-8.2)
[2017-04-23] MEDS: INSULIN ASPART 100 UNITS/ML, PEN SQ-INSULIN SCH ×4 (04:49→23:00)
[2017-04-23] MEDS: FENTANYL PF 100 MCG/2ML IVPush PRN ×5 (04:58→22:20)
[2017-04-23 05:43] LABS: BASOPHILS # (AUTO) 0.02 x10^3/uL (0-0.1); BASOPHILS % (AUTO) 0 % (0-1); EOSINOPHILS # (AUTO) 0.87 x10^3/uL (0-0.4); EOSINOPHILS % (AUTO) 10 % (1-7); LYMPHOCYTES # (AUTO) 0.71 x10^3/uL (1-3.4); LYMPHOCYTES % (AUTO) 8 % (22-44); MD SCAN; MONOCYTES # (AUTO) 0.48 x10^3/uL (0.2-0.8); MONOCYTES % (AUTO) 6 % (2-9); NEUTROPHILS # (AUTO) 6.37 x10^3/uL (1.8-6.8); NEUTROPHILS % (AUTO) 75 % (42-75)
[2017-04-23] MEDS: DEXAMETHASONE 4 MG/ML, 1ML IVPush SCH (08:21)
[2017-04-23] MEDS: VALPROATE SODIUM 250 MG/5 ML ORAL SOLN PO SCH ×3 (08:22→20:59)
[2017-04-23] MEDS: PAROXETINE 20 MG TABLET PO SCH (08:22)
[2017-04-23] MEDS: DAPTOMYCIN 700 MG in SODIUM CHLORIDE 0.9% 100 ML IV SCH (12:38)
[2017-04-23] MEDS: SODIUM CHLORIDE FLUSH 10ML SYR IVF SCH ×2 (12:38→20:59)
[2017-04-24] MEDS: FENTANYL PF 100 MCG/2ML IVPush PRN ×7 (00:10→20:18)
[2017-04-24 04:00] VITALS: BP 153/97
[2017-04-24] MEDS: INSULIN ASPART 100 UNITS/ML, PEN SQ-INSULIN SCH ×2 (05:00→11:00)
[2017-04-24] MEDS: VALPROATE SODIUM 250 MG/5 ML ORAL SOLN PO SCH ×3 (11:19→20:18)
[2017-04-24] MEDS: SODIUM CHLORIDE FLUSH 10ML SYR IVF SCH ×2 (11:19→20:18)
[2017-04-24] MEDS: RISPERIDONE 1 MG/ML ORAL SOLN PO SCH ×2 (11:19→20:19)
[2017-04-24] MEDS: PAROXETINE 20 MG TABLET PO SCH (11:19)
[2017-04-24] MEDS: FENTANYL 100 MCG PATCH TD SCH (11:20)
[2017-04-24] MEDS: DAPTOMYCIN 700 MG in SODIUM CHLORIDE 0.9% 100 ML IV SCH (13:12)
[2017-04-24] MEDS: MIDAZOLAM 1 MG/ML, 5ML IVPush PRN (21:59)
[2017-04-25] MEDS: MIDAZOLAM 1 MG/ML, 5ML IVPush PRN ×5 (00:04→10:08)
[2017-04-25 04:55] LABS: MEAN CORPUSCULAR HEMOGLOBIN 33.4 pg (27.5-34.5); MEAN CORPUSCULAR HGB CONC 33.6 g/dL (33.2-36.2); MEAN CORPUSCULAR VOLUME 99.3 fL (81-97); MEAN PLATELET VOLUME 8.6 fL (7.4-10.4); PLATELET COUNT 156 x10^3/uL (130-400); RED BLOOD COUNT 2.14 x10^6/uL (4.38-5.82); RED CELL DISTRIBUTION WIDTH 20.3 % (9.4-14.8)
[2017-04-25 04:59] LABS: ALBUMIN 1.6 g/dL (3.4-5.0); ANION GAP 5 mmol/L (5-15); CALCIUM 6.7 mg/dL (8.5-10.1); CHLORIDE 109 mmol/L (98-107); CREATININE 1.02 mg/dL (0.7-1.3)
[2017-04-25 05:02] LABS: ALANINE AMINOTRANSFERASE 28 U/L (12-78); ALKALINE PHOSPHATASE 61 U/L (45-117); BILIRUBIN,TOTAL 0.3 mg/dL (0.2-1.0); TOTAL PROTEIN 5.5 g/dL (6.4-8.2)
[2017-04-25 05:39] LABS: MD YES
[2017-04-25 05:41] LABS: ANISOCYTOSIS 1+; BANDS%(MANUAL) 1 % (0-7); EOS#(MANUAL) 1.18 x10^3/uL (0.0-0.4); EOS% (MANUAL) 12 % (1-7); LYMPH#(MANUAL) 0.78 x10^3/uL (1-3.4); LYMPHS% (MANUAL) 8 % (22-44); MONOS% (MANUAL) 1 % (2-9); SEG#(MANUAL) 7.64 x10^3/uL (1.8-6.8); SEGS% (MANUAL) 78 % (42-75)
[2017-04-25 05:42] LABS: <PLATELET ESTIMATE> ADEQUATE; <PLT MORPHOLOGY> NORMAL PLT MORPH
[2017-04-25] MEDS: RISPERIDONE 1 MG/ML ORAL SOLN NG SCH ×2 (10:07→20:50)
[2017-04-25] MEDS: VALPROATE SODIUM 250 MG/5 ML ORAL SOLN PO SCH ×3 (10:07→20:50)
[2017-04-25] MEDS: SODIUM CHLORIDE FLUSH 10ML SYR IVF SCH ×2 (10:07→20:14)
[2017-04-25] MEDS: PAROXETINE 20 MG TABLET PO SCH (10:07)
[2017-04-25] MEDS: FENTANYL PF 100 MCG/2ML IVPush PRN ×3 (10:08→21:46)
[2017-04-25] MEDS: INSULIN ASPART 100 UNITS/ML, PEN SQ-INSULIN SCH (10:15)
[2017-04-25] MEDS: DAPTOMYCIN 700 MG in SODIUM CHLORIDE 0.9% 100 ML IV SCH (14:10)
[2017-04-26] MEDS: MIDAZOLAM 1 MG/ML, 5ML IVPush PRN ×2 (00:17→16:44)
[2017-04-26] MEDS ORDERED: ERGOCALCIFEROL 8,000UNIT/ML NG SCH (01:30)
[2017-04-26 04:28] LABS: BASOPHILS # (AUTO) 0.02 x10^3/uL (0-0.1); BASOPHILS % (AUTO) 0 % (0-1); EOSINOPHILS # (AUTO) 0.91 x10^3/uL (0-0.4); EOSINOPHILS % (AUTO) 9 % (1-7); LYMPHOCYTES # (AUTO) 0.61 x10^3/uL (1-3.4); LYMPHOCYTES % (AUTO) 6 % (22-44); MD NO; MEAN CORPUSCULAR HEMOGLOBIN 33.8 pg (27.5-34.5); MEAN CORPUSCULAR HGB CONC 33.9 g/dL (33.2-36.2); MEAN CORPUSCULAR VOLUME 99.5 fL (81-97); MEAN PLATELET VOLUME 8.3 fL (7.4-10.4); MONOCYTES # (AUTO) 0.45 x10^3/uL (0.2-0.8); MONOCYTES % (AUTO) 5 % (2-9); NEUTROPHILS # (AUTO) 8.03 x10^3/uL (1.8-6.8); NEUTROPHILS % (AUTO) 80 % (42-75); PLATELET COUNT 186 x10^3/uL (130-400); RED BLOOD COUNT 2.33 x10^6/uL (4.38-5.82); RED CELL DISTRIBUTION WIDTH 21.3 % (9.4-14.8)
[2017-04-26 04:37] LABS: ANION GAP 7 mmol/L (5-15); CALCIUM 7.3 mg/dL (8.5-10.1); CHLORIDE 107 mmol/L (98-107); CREATININE 0.98 mg/dL (0.7-1.3)
[2017-04-26] MEDS: ERGOCALCIFEROL 8,000UNIT/ML NG SCH (07:57)
[2017-04-26] MEDS: VALPROATE SODIUM 250 MG/5 ML ORAL SOLN PO SCH ×3 (07:57→21:08)
[2017-04-26] MEDS: SODIUM CHLORIDE FLUSH 10ML SYR IVF SCH ×2 (07:58→21:07)
[2017-04-26] MEDS: RISPERIDONE 1 MG/ML ORAL SOLN NG SCH ×2 (07:58→21:07)
[2017-04-26] MEDS: PAROXETINE 20 MG TABLET PO SCH (07:58)
[2017-04-26] MEDS: INSULIN ASPART 100 UNITS/ML, PEN SQ-INSULIN SCH (07:59)
[2017-04-26] MEDS: DAPTOMYCIN 700 MG in SODIUM CHLORIDE 0.9% 100 ML IV SCH (13:28)
[2017-04-26] MEDS: FENTANYL PF 100 MCG/2ML IVPush PRN (13:58)
[2017-04-27] MEDS: SODIUM CHLORIDE 0.9% 500 ML IV SCH (00:13)
[2017-04-27] MEDS: MIDAZOLAM 1 MG/ML, 5ML IVPush PRN (03:10)
[2017-04-27] MEDS: PAROXETINE 20 MG TABLET PO SCH (09:25)
[2017-04-27] MEDS: VALPROATE SODIUM 250 MG/5 ML ORAL SOLN PO SCH ×3 (09:26→21:17)
[2017-04-27] MEDS: FENTANYL 100 MCG PATCH TD SCH (09:26)
[2017-04-27] MEDS: RISPERIDONE 1 MG/ML ORAL SOLN NG SCH ×2 (09:27→21:17)
[2017-04-27] MEDS: SODIUM CHLORIDE FLUSH 10ML SYR IVF SCH ×2 (09:27→21:17)
[2017-04-27] MEDS: INSULIN ASPART 100 UNITS/ML, PEN SQ-INSULIN SCH (09:31)
[2017-04-27] MEDS: DAPTOMYCIN 700 MG in SODIUM CHLORIDE 0.9% 100 ML IV SCH (13:28)
[2017-04-27] MEDS: FENTANYL PF 100 MCG/2ML IVPush PRN (15:30)
[2017-04-28] MEDS: FENTANYL PF 100 MCG/2ML IVPush PRN ×3 (02:16→16:10)
[2017-04-28] MEDS: RISPERIDONE 1 MG/ML ORAL SOLN NG SCH ×2 (08:54→21:33)
[2017-04-28] MEDS: PAROXETINE 20 MG TABLET PO SCH (08:54)
[2017-04-28] MEDS: VALPROATE SODIUM 250 MG/5 ML ORAL SOLN PO SCH ×3 (08:54→21:33)
[2017-04-28] MEDS: INSULIN ASPART 100 UNITS/ML, PEN SQ-INSULIN SCH (08:55)
[2017-04-28] MEDS ORDERED: MIDAZOLAM 1 MG/ML, 2ML ONE (09:06)
[2017-04-28] MEDS: DAPTOMYCIN 700 MG in SODIUM CHLORIDE 0.9% 100 ML IV SCH (13:11)
[2017-04-28] MEDS ORDERED: LIDOCAINE-MPF 1%, 2ML ENDO PRN (20:00)
[2017-04-28] MEDS ORDERED: ACETAMINOPHEN 650 MG SUPP PR PRN (20:00)
[2017-04-28] MEDS ORDERED: ONDANSETRON 2MG/ML, 2ML IVPush PRN (20:00)
[2017-04-28] MEDS ORDERED: ACETAMINOPHEN 325 MG TABLET PO PRN (20:00)
[2017-04-28] MEDS ORDERED: BISACODYL 10 MG SUPP PR PRN (20:00)
[2017-04-28] MEDS ORDERED: PHARMACY MAY ADJ FOR RENAL FX MC SCH (20:00)
[2017-04-29] MEDS: FENTANYL PF 100 MCG/2ML IVPush PRN (01:07)
[2017-04-29 04:36] LABS: MEAN CORPUSCULAR HEMOGLOBIN 32.9 pg (27.5-34.5); MEAN CORPUSCULAR HGB CONC 32.7 g/dL (33.2-36.2); MEAN CORPUSCULAR VOLUME 100.7 fL (81-97); MEAN PLATELET VOLUME 8.9 fL (7.4-10.4); PLATELET COUNT 182 x10^3/uL (130-400); RED BLOOD COUNT 2.17 x10^6/uL (4.38-5.82); RED CELL DISTRIBUTION WIDTH 22.3 % (9.4-14.8)
[2017-04-29 04:37] LABS: HCT (SEDRATE) 21.8 % (39.2-51.8)
[2017-04-29 04:39] LABS: ALBUMIN 1.6 g/dL (3.4-5.0); ANION GAP 6 mmol/L (5-15); CALCIUM 7.1 mg/dL (8.5-10.1); CHLORIDE 107 mmol/L (98-107)
[2017-04-29 04:47] LABS: ALANINE AMINOTRANSFERASE 25 U/L (12-78); ALKALINE PHOSPHATASE 60 U/L (45-117); BILIRUBIN,TOTAL 0.4 mg/dL (0.2-1.0); CREATININE 0.93 mg/dL (0.7-1.3); TOTAL PROTEIN 5.7 g/dL (6.4-8.2)
[2017-04-29 05:09] LABS: SEDIMENTATION RATE 111 mm/hr (0-10)
[2017-04-29 05:46] LABS: BASOPHILS # (AUTO) 0.01 x10^3/uL (0-0.1); BASOPHILS % (AUTO) 0 % (0-1); EOSINOPHILS # (AUTO) 0.75 x10^3/uL (0-0.4); EOSINOPHILS % (AUTO) 9 % (1-7); LYMPHOCYTES # (AUTO) 0.48 x10^3/uL (1-3.4); LYMPHOCYTES % (AUTO) 6 % (22-44); MD SCAN; MONOCYTES # (AUTO) 0.44 x10^3/uL (0.2-0.8); MONOCYTES % (AUTO) 5 % (2-9); NEUTROPHILS # (AUTO) 6.84 x10^3/uL (1.8-6.8); NEUTROPHILS % (AUTO) 80 % (42-75)
[2017-04-29] MEDS: VALPROATE SODIUM 250 MG/5 ML ORAL SOLN PO SCH ×3 (08:24→21:03)
[2017-04-29] MEDS: PAROXETINE 20 MG TABLET PO SCH (08:24)
[2017-04-29] MEDS: RISPERIDONE 1 MG/ML ORAL SOLN NG SCH ×2 (08:25→21:03)
[2017-04-29] MEDS: INSULIN ASPART 100 UNITS/ML, PEN SQ-INSULIN SCH (08:26)
[2017-04-29] MEDS: DAPTOMYCIN 700 MG in SODIUM CHLORIDE 0.9% 100 ML IV SCH (13:38)
[2017-04-30] MEDS: FENTANYL PF 100 MCG/2ML IVPush PRN (08:23)
[2017-04-30] MEDS: RISPERIDONE 1 MG/ML ORAL SOLN NG SCH ×2 (08:25→21:36)
[2017-04-30] MEDS: VALPROATE SODIUM 250 MG/5 ML ORAL SOLN PO SCH ×3 (08:25→21:36)
[2017-04-30] MEDS: PAROXETINE 20 MG TABLET PO SCH (08:25)
[2017-04-30] MEDS: SENNA/DOCUSATE TABLET NG PRN (08:26)
[2017-04-30] MEDS: FENTANYL 100 MCG PATCH TD SCH (08:34)
[2017-04-30] MEDS: INSULIN ASPART 100 UNITS/ML, PEN SQ-INSULIN SCH (08:38)
[2017-04-30] MEDS: DAPTOMYCIN 700 MG in SODIUM CHLORIDE 0.9% 100 ML IV SCH (15:14)
[2017-05-01] MEDS: RISPERIDONE 1 MG/ML ORAL SOLN NG SCH ×2 (09:41→21:35)
[2017-05-01] MEDS: PAROXETINE 20 MG TABLET PO SCH (09:41)
[2017-05-01] MEDS: VALPROATE SODIUM 250 MG/5 ML ORAL SOLN PO SCH ×3 (09:41→21:35)
[2017-05-01] MEDS: INSULIN ASPART 100 UNITS/ML, PEN SQ-INSULIN SCH (09:42)
[2017-05-01] MEDS: FENTANYL PF 100 MCG/2ML IVPush PRN ×3 (12:09→22:46)
[2017-05-01] MEDS: DAPTOMYCIN 700 MG in SODIUM CHLORIDE 0.9% 100 ML IV SCH (13:43)
[2017-05-02 04:23] LABS: MEAN CORPUSCULAR HEMOGLOBIN 33.4 pg (27.5-34.5); MEAN CORPUSCULAR HGB CONC 32.9 g/dL (33.2-36.2); MEAN CORPUSCULAR VOLUME 101.5 fL (81-97); MEAN PLATELET VOLUME 8.3 fL (7.4-10.4); PLATELET COUNT 238 x10^3/uL (130-400); RED BLOOD COUNT 2.21 x10^6/uL (4.38-5.82); RED CELL DISTRIBUTION WIDTH 22.3 % (9.4-14.8)
[2017-05-02 04:37] LABS: ALBUMIN 1.6 g/dL (3.4-5.0); ANION GAP 7 mmol/L (5-15); CALCIUM 7.6 mg/dL (8.5-10.1); CHLORIDE 104 mmol/L (98-107); MD YES
[2017-05-02 04:40] LABS: ALANINE AMINOTRANSFERASE 30 U/L (12-78); ALKALINE PHOSPHATASE 70 U/L (45-117); BASOS#(MANUAL) 0.08 x10^3/uL (0-0.1); BASOS% (MANUAL) 1 % (0-1); BILIRUBIN,TOTAL 0.3 mg/dL (0.2-1.0); CREATININE 0.83 mg/dL (0.7-1.3); EOS% (MANUAL) 5 % (1-7); LYMPH#(MANUAL) 0.55 x10^3/uL (1-3.4); LYMPHS% (MANUAL) 7 % (22-44); MONOS#(MANUAL) 0.32 x10^3/uL (0.3-2.7); MONOS% (MANUAL) 4 % (2-9); SEG#(MANUAL) 6.56 x10^3/uL (1.8-6.8); SEGS% (MANUAL) 83 % (42-75); TOTAL PROTEIN 6.2 g/dL (6.4-8.2)
[2017-05-02 04:41] LABS: <PLATELET ESTIMATE> ADEQUATE; <PLT MORPHOLOGY> NORMAL PLT MORPH; ANISOCYTOSIS 1+; OVALOCYTES 1+; POLYCHROMASIA 1+
[2017-05-02] MEDS: INSULIN ASPART 100 UNITS/ML, PEN SQ-INSULIN SCH (08:11)
[2017-05-02] MEDS: RISPERIDONE 1 MG/ML ORAL SOLN NG SCH ×2 (08:39→20:38)
[2017-05-02] MEDS: VALPROATE SODIUM 250 MG/5 ML ORAL SOLN PO SCH ×3 (08:39→20:38)
[2017-05-02] MEDS: FENTANYL PF 100 MCG/2ML IVPush PRN ×2 (08:39→20:39)
[2017-05-02] MEDS: PAROXETINE 20 MG TABLET PO SCH (08:39)
[2017-05-02] MEDS: DAPTOMYCIN 700 MG in SODIUM CHLORIDE 0.9% 100 ML IV SCH (13:20)
[2017-05-03] MEDS: VALPROATE SODIUM 250 MG/5 ML ORAL SOLN PO SCH ×3 (08:07→21:51)
[2017-05-03] MEDS: RISPERIDONE 1 MG/ML ORAL SOLN NG SCH ×2 (08:07→21:51)
[2017-05-03] MEDS: PAROXETINE 20 MG TABLET PO SCH (08:07)
[2017-05-03] MEDS: INSULIN ASPART 100 UNITS/ML, PEN SQ-INSULIN SCH (08:08)
[2017-05-03] MEDS: ERGOCALCIFEROL 8,000UNIT/ML NG SCH (08:08)
[2017-05-03] MEDS: RIFAMPIN 300 MG CAPSULE NG SCH (13:32)
[2017-05-03] MEDS: DAPTOMYCIN 700 MG in SODIUM CHLORIDE 0.9% 100 ML IV SCH (13:32)
[2017-05-03] MEDS: FENTANYL 100 MCG PATCH TD SCH (13:32)
[2017-05-03] MEDS: FENTANYL PF 100 MCG/2ML IVPush PRN (20:00)
[2017-05-04] MEDS: FENTANYL PF 100 MCG/2ML IVPush PRN ×2 (06:29→08:09)
[2017-05-04] MEDS: INSULIN ASPART 100 UNITS/ML, PEN SQ-INSULIN SCH (09:00)
[2017-05-04] MEDS: RIFAMPIN 300 MG CAPSULE NG SCH (09:29)
[2017-05-04] MEDS: PAROXETINE 20 MG TABLET PO SCH (09:30)
[2017-05-04] MEDS: VALPROATE SODIUM 250 MG/5 ML ORAL SOLN PO SCH ×3 (09:31→20:47)
[2017-05-04] MEDS: RISPERIDONE 1 MG/ML ORAL SOLN NG SCH ×2 (09:31→20:46)
[2017-05-04] MEDS: FENTANYL PF 2,500 MCG in SODIUM CHLORIDE 0.9% 200 ML IV PRN (10:34)
[2017-05-04] MEDS: DAPTOMYCIN 700 MG in SODIUM CHLORIDE 0.9% 100 ML IV SCH (13:38)
[2017-05-04] MEDS: hydrALAzine 20 MG/ML, 1ML IVPush PRN (17:33)
[2017-05-05] MEDS: PAROXETINE 20 MG TABLET PO SCH (07:34)
[2017-05-05] MEDS: VALPROATE SODIUM 250 MG/5 ML ORAL SOLN PO SCH ×3 (07:34→19:37)
[2017-05-05] MEDS: RIFAMPIN 300 MG CAPSULE NG SCH (07:34)
[2017-05-05] MEDS: RISPERIDONE 1 MG/ML ORAL SOLN NG SCH ×2 (07:35→19:37)
[2017-05-05] MEDS: INSULIN ASPART 100 UNITS/ML, PEN SQ-INSULIN SCH (09:00)
[2017-05-05] MEDS: DAPTOMYCIN 700 MG in SODIUM CHLORIDE 0.9% 100 ML IV SCH (13:00)
[2017-05-05 14:19] LABS: MEAN CORPUSCULAR HEMOGLOBIN 33.8 pg (27.5-34.5); MEAN CORPUSCULAR HGB CONC 33.1 g/dL (33.2-36.2); MEAN CORPUSCULAR VOLUME 102.1 fL (81-97); MEAN PLATELET VOLUME 7.9 fL (7.4-10.4); PLATELET COUNT 306 x10^3/uL (130-400); RED BLOOD COUNT 2.24 x10^6/uL (4.38-5.82); RED CELL DISTRIBUTION WIDTH 22.6 % (9.4-14.8)
[2017-05-05 14:26] LABS: ANION GAP 5 mmol/L (5-15); CALCIUM 7.4 mg/dL (8.5-10.1); CHLORIDE 105 mmol/L (98-107); CREATININE 0.93 mg/dL (0.7-1.3)
[2017-05-05 15:11] LABS: BASOPHILS # (AUTO) 0.01 x10^3/uL (0-0.1); BASOPHILS % (AUTO) 0 % (0-1); EOSINOPHILS # (AUTO) 0.29 x10^3/uL (0-0.4); EOSINOPHILS % (AUTO) 4 % (1-7); LYMPHOCYTES # (AUTO) 0.34 x10^3/uL (1-3.4); LYMPHOCYTES % (AUTO) 4 % (22-44); MD MORPH REVIEW ONLY; MONOCYTES # (AUTO) 0.49 x10^3/uL (0.2-0.8); MONOCYTES % (AUTO) 6 % (2-9); NEUTROPHILS % (AUTO) 86 % (42-75)
[2017-05-05 15:12] LABS: <PLATELET ESTIMATE> ADEQUATE; <PLT MORPHOLOGY> NORMAL PLT MORPH; ANISOCYTOSIS 1+; POLYCHROMASIA 1+
[2017-05-05] MEDS ORDERED: FUROSEMIDE 20 MG/2 ML IV ONE (17:00)
[2017-05-05] MEDS ORDERED: ALBUMIN HUMAN 25% 100 ML IV ONE (17:00)
[2017-05-05] MEDS: hydrALAzine 20 MG/ML, 1ML IVPush PRN ×2 (17:46→22:02)
[2017-05-05] MEDS ORDERED: ACETAMINOPHEN 325 MG TABLET PO PRN (19:30)
[2017-05-05] MEDS ORDERED: BISACODYL 10 MG SUPP PR PRN (19:30)
[2017-05-05] MEDS ORDERED: LACTULOSE 20 GM/30 ML UDC NG PRN (19:30)
[2017-05-05] MEDS ORDERED: ACETAMINOPHEN 650 MG SUPP PR PRN (19:30)
[2017-05-05] MEDS ORDERED: ONDANSETRON 2MG/ML, 2ML IVPush PRN (19:30)
[2017-05-06] MEDS: RIFAMPIN 300 MG CAPSULE NG SCH (09:41)
[2017-05-06] MEDS: RISPERIDONE 1 MG/ML ORAL SOLN NG SCH ×2 (09:41→19:33)
[2017-05-06] MEDS: PAROXETINE 20 MG TABLET PO SCH (09:41)
[2017-05-06] MEDS: VALPROATE SODIUM 250 MG/5 ML ORAL SOLN PO SCH ×3 (09:41→19:33)
[2017-05-06] MEDS: INSULIN ASPART 100 UNITS/ML, PEN SQ-INSULIN SCH (14:14)
[2017-05-06] MEDS: FENTANYL PF 2,500 MCG in SODIUM CHLORIDE 0.9% 200 ML IV PRN (22:51)
[2017-05-07] MEDS: INSULIN ASPART 100 UNITS/ML, PEN SQ-INSULIN SCH (07:10)
[2017-05-07] MEDS: VALPROATE SODIUM 250 MG/5 ML ORAL SOLN PO SCH ×3 (07:48→19:24)
[2017-05-07] MEDS: RISPERIDONE 1 MG/ML ORAL SOLN NG SCH ×2 (07:48→19:24)
[2017-05-07] MEDS: PAROXETINE 20 MG TABLET PO SCH (07:48)
[2017-05-08] MEDS: RISPERIDONE 1 MG/ML ORAL SOLN NG SCH ×2 (08:14→21:30)
[2017-05-08] MEDS: VALPROATE SODIUM 250 MG/5 ML ORAL SOLN PO SCH ×3 (08:14→21:30)
[2017-05-08] MEDS: PAROXETINE 20 MG TABLET PO SCH (08:15)
[2017-05-08] MEDS: INSULIN ASPART 100 UNITS/ML, PEN SQ-INSULIN SCH (09:00)
[2017-05-09 06:41] VITALS: BP 149/71
[2017-05-09] MEDS: RISPERIDONE 1 MG/ML ORAL SOLN NG SCH ×2 (07:30→21:40)
[2017-05-09] MEDS: VALPROATE SODIUM 250 MG/5 ML ORAL SOLN PO SCH ×3 (07:30→21:40)
[2017-05-09] MEDS: PAROXETINE 20 MG TABLET PO SCH (07:30)
[2017-05-09] MEDS: INSULIN ASPART 100 UNITS/ML, PEN SQ-INSULIN SCH (07:30)
[2017-05-10 04:37] LABS: MEAN CORPUSCULAR HGB CONC 32.8 g/dL (33.2-36.2); MEAN CORPUSCULAR VOLUME 103.6 fL (81-97); MEAN PLATELET VOLUME 7.9 fL (7.4-10.4); PLATELET COUNT 271 x10^3/uL (130-400); RED CELL DISTRIBUTION WIDTH 21.5 % (9.4-14.8)
[2017-05-10 04:42] VITALS: BP 140/69
[2017-05-10 05:38] LABS: BASOPHILS # (AUTO) 0.02 x10^3/uL (0-0.1); BASOPHILS % (AUTO) 0 % (0-1); EOSINOPHILS # (AUTO) 0.62 x10^3/uL (0-0.4); EOSINOPHILS % (AUTO) 7 % (1-7); LYMPHOCYTES # (AUTO) 0.43 x10^3/uL (1-3.4); LYMPHOCYTES % (AUTO) 5 % (22-44); MD SCAN; MONOCYTES # (AUTO) 0.44 x10^3/uL (0.2-0.8); MONOCYTES % (AUTO) 5 % (2-9); NEUTROPHILS # (AUTO) 6.88 x10^3/uL (1.8-6.8); NEUTROPHILS % (AUTO) 82 % (42-75)
[2017-05-10 06:22] LABS: ANION GAP 6 mmol/L (5-15); CALCIUM 7.8 mg/dL (8.5-10.1); CHLORIDE 107 mmol/L (98-107)
[2017-05-10] MEDS: INSULIN ASPART 100 UNITS/ML, PEN SQ-INSULIN SCH (09:31)
[2017-05-10] MEDS: FONDAPARINUX 2.5 MG/0.5 ML SQ SCH (09:57)
[2017-05-10] MEDS: ERGOCALCIFEROL 8,000UNIT/ML NG SCH (11:15)
[2017-05-10] MEDS: VALPROATE SODIUM 250 MG/5 ML ORAL SOLN PO SCH ×3 (11:15→21:23)
[2017-05-10] MEDS: RISPERIDONE 1 MG/ML ORAL SOLN NG SCH ×2 (11:16→21:24)
[2017-05-10] MEDS: PAROXETINE 20 MG TABLET PO SCH (11:17)
[2017-05-10] MEDS: FENTANYL PF 2,500 MCG in SODIUM CHLORIDE 0.9% 200 ML IV PRN (14:37)
[2017-05-11 04:58] VITALS: BP 139/72
[2017-05-11] MEDS: VALPROATE SODIUM 250 MG/5 ML ORAL SOLN PO SCH ×3 (08:05→20:15)
[2017-05-11] MEDS: SENNA/DOCUSATE TABLET NG PRN (08:06)
[2017-05-11] MEDS: FONDAPARINUX 2.5 MG/0.5 ML SQ SCH (08:06)
[2017-05-11] MEDS: PAROXETINE 20 MG TABLET PO SCH (08:06)
[2017-05-11] MEDS: RISPERIDONE 1 MG/ML ORAL SOLN NG SCH ×2 (08:36→20:15)
[2017-05-11] MEDS: INSULIN ASPART 100 UNITS/ML, PEN SQ-INSULIN SCH (09:09)
[2017-05-11] MEDS: hydrALAzine 20 MG/ML, 1ML IVPush PRN (18:17)
[2017-05-12] MEDS: hydrALAzine 20 MG/ML, 1ML IVPush PRN (03:01)
[2017-05-12 05:50] VITALS: BP 162/68
[2017-05-12] MEDS: INSULIN ASPART 100 UNITS/ML, PEN SQ-INSULIN SCH (09:00)
[2017-05-12] MEDS: VALPROATE SODIUM 250 MG/5 ML ORAL SOLN PO SCH ×3 (09:03→21:36)
[2017-05-12] MEDS: RISPERIDONE 1 MG/ML ORAL SOLN NG SCH ×2 (09:03→21:36)
[2017-05-12] MEDS: PAROXETINE 20 MG TABLET PO SCH (09:03)
[2017-05-12] MEDS: SENNA/DOCUSATE TABLET NG PRN (09:04)
[2017-05-12] MEDS: FONDAPARINUX 2.5 MG/0.5 ML SQ SCH (09:04)
[2017-05-12 12:33] LABS: MEAN CORPUSCULAR HGB CONC 32.6 g/dL (33.2-36.2); MEAN CORPUSCULAR VOLUME 104.2 fL (81-97); MEAN PLATELET VOLUME 7.5 fL (7.4-10.4); PLATELET COUNT 251 x10^3/uL (130-400); RED BLOOD COUNT 2.05 x10^6/uL (4.38-5.82); RED CELL DISTRIBUTION WIDTH 21.4 % (9.4-14.8)
[2017-05-12 12:37] LABS: ALANINE AMINOTRANSFERASE 250 U/L (12-78); ALBUMIN 1.6 g/dL (3.4-5.0); ANION GAP 3 mmol/L (5-15); CALCIUM 7.6 mg/dL (8.5-10.1); CHLORIDE 112 mmol/L (98-107); CREATININE 1.12 mg/dL (0.7-1.3)
[2017-05-12 12:40] LABS: ALKALINE PHOSPHATASE 84 U/L (45-117); BILIRUBIN,TOTAL 0.2 mg/dL (0.2-1.0); TOTAL PROTEIN 6.2 g/dL (6.4-8.2)
[2017-05-12 12:46] LABS: BASOPHILS # (AUTO) 0.02 x10^3/uL (0-0.1); BASOPHILS % (AUTO) 0 % (0-1); EOSINOPHILS # (AUTO) 0.29 x10^3/uL (0-0.4); EOSINOPHILS % (AUTO) 4 % (1-7); LYMPHOCYTES # (AUTO) 0.62 x10^3/uL (1-3.4); LYMPHOCYTES % (AUTO) 9 % (22-44); MD SCAN; MONOCYTES # (AUTO) 0.49 x10^3/uL (0.2-0.8); MONOCYTES % (AUTO) 7 % (2-9); NEUTROPHILS # (AUTO) 5.73 x10^3/uL (1.8-6.8); NEUTROPHILS % (AUTO) 80 % (42-75)
[2017-05-12] MEDS: FENTANYL PF 2,500 MCG in SODIUM CHLORIDE 0.9% 200 ML IV PRN (18:19)
[2017-05-13 04:00] VITALS: BP 142/78
[2017-05-13 05:17] LABS: MEAN CORPUSCULAR HEMOGLOBIN 34.5 pg (27.5-34.5); MEAN CORPUSCULAR HGB CONC 32.8 g/dL (33.2-36.2); MEAN CORPUSCULAR VOLUME 105.3 fL (81-97); PLATELET COUNT 242 x10^3/uL (130-400); RED BLOOD COUNT 2.08 x10^6/uL (4.38-5.82); RED CELL DISTRIBUTION WIDTH 21.6 % (9.4-14.8)
[2017-05-13 05:29] LABS: CHLORIDE 111 mmol/L (98-107)
[2017-05-13 05:42] LABS: ALANINE AMINOTRANSFERASE 208 U/L (12-78); ALBUMIN 1.7 g/dL (3.4-5.0); ALKALINE PHOSPHATASE 78 U/L (45-117); ANION GAP 5 mmol/L (5-15); BILIRUBIN,TOTAL 0.3 mg/dL (0.2-1.0); CALCIUM 7.7 mg/dL (8.5-10.1); CREATININE 1.18 mg/dL (0.7-1.3); TOTAL PROTEIN 6.1 g/dL (6.4-8.2)
[2017-05-13 05:54] LABS: BASOPHILS # (AUTO) 0.07 x10^3/uL (0-0.1); BASOPHILS % (AUTO) 1 % (0-1); EOSINOPHILS # (AUTO) 0.19 x10^3/uL (0-0.4); EOSINOPHILS % (AUTO) 2 % (1-7); LYMPHOCYTES # (AUTO) 0.49 x10^3/uL (1-3.4); LYMPHOCYTES % (AUTO) 5 % (22-44); MD SCAN; MONOCYTES # (AUTO) 0.51 x10^3/uL (0.2-0.8); MONOCYTES % (AUTO) 5 % (2-9); NEUTROPHILS # (AUTO) 8.71 x10^3/uL (1.8-6.8); NEUTROPHILS % (AUTO) 87 % (42-75)
[2017-05-13] MEDS: FENTANYL PF 100 MCG/2ML IVPush PRN (09:23)
[2017-05-13] MEDS: ALBUMIN HUMAN 25% 100 ML IV SCH (09:24)
[2017-05-13] MEDS: hydrALAzine 20 MG/ML, 1ML IVPush PRN (09:24)
[2017-05-13] MEDS: VALPROATE SODIUM 250 MG/5 ML ORAL SOLN PO SCH ×3 (09:25→21:34)
[2017-05-13] MEDS: PAROXETINE 20 MG TABLET PO SCH (09:28)
[2017-05-13] MEDS: RISPERIDONE 1 MG/ML ORAL SOLN NG SCH ×2 (09:28→21:34)
[2017-05-13] MEDS: FONDAPARINUX 2.5 MG/0.5 ML SQ SCH (09:29)
[2017-05-13] MEDS: INSULIN ASPART 100 UNITS/ML, PEN SQ-INSULIN SCH (10:17)
[2017-05-13] MEDS: FUROSEMIDE 40 MG/4 ML IV SCH (11:05)
[2017-05-14 05:00] VITALS: BP 145/74
[2017-05-14 06:10] LABS: CHLORIDE 112 mmol/L (98-107)
[2017-05-14 06:27] LABS: ANION GAP 7 mmol/L (5-15); CREATININE 1.24 mg/dL (0.7-1.3)
[2017-05-14] MEDS: FENTANYL PF 100 MCG/2ML IVPush PRN (10:24)
[2017-05-14] MEDS: ALBUMIN HUMAN 25% 100 ML IV SCH (10:24)
[2017-05-14] MEDS: VALPROATE SODIUM 250 MG/5 ML ORAL SOLN PO SCH ×3 (10:26→21:25)
[2017-05-14] MEDS: PAROXETINE 20 MG TABLET PO SCH (10:26)
[2017-05-14] MEDS: RISPERIDONE 1 MG/ML ORAL SOLN NG SCH ×2 (10:26→21:27)
[2017-05-14] MEDS: FONDAPARINUX 2.5 MG/0.5 ML SQ SCH (10:27)
[2017-05-14] MEDS: FUROSEMIDE 40 MG/4 ML IV SCH (12:59)
[2017-05-14] MEDS: INSULIN ASPART 100 UNITS/ML, PEN SQ-INSULIN SCH (12:59)
[2017-05-14] MEDS: FENTANYL PF 2,500 MCG in SODIUM CHLORIDE 0.9% 200 ML IV PRN (14:56)
[2017-05-15] VITALS (7 sets, daily range): BP systolic 105–132; BP diastolic 52–70
[2017-05-15 05:57] LABS: MEAN CORPUSCULAR HEMOGLOBIN 36.2 pg (27.5-34.5); MEAN CORPUSCULAR HGB CONC 34.5 g/dL (33.2-36.2); MEAN CORPUSCULAR VOLUME 105.1 fL (81-97); MEAN PLATELET VOLUME 8.1 fL (7.4-10.4); PLATELET COUNT 178 x10^3/uL (130-400); RED BLOOD COUNT 1.89 x10^6/uL (4.38-5.82)
[2017-05-15 06:07] LABS: ANION GAP 3 mmol/L (5-15); CALCIUM 7.6 mg/dL (8.5-10.1); CHLORIDE 113 mmol/L (98-107); CREATININE 1.33 mg/dL (0.7-1.3)
[2017-05-15 06:21] LABS: BASOPHILS # (AUTO) 0.02 x10^3/uL (0-0.1); BASOPHILS % (AUTO) 0 % (0-1); EOSINOPHILS # (AUTO) 0.07 x10^3/uL (0-0.4); EOSINOPHILS % (AUTO) 1 % (1-7); LYMPHOCYTES # (AUTO) 0.45 x10^3/uL (1-3.4); LYMPHOCYTES % (AUTO) 4 % (22-44); MD SCAN; MONOCYTES # (AUTO) 0.45 x10^3/uL (0.2-0.8); MONOCYTES % (AUTO) 4 % (2-9); NEUTROPHILS % (AUTO) 90 % (42-75)
[2017-05-15] MEDS: INSULIN ASPART 100 UNITS/ML, PEN SQ-INSULIN SCH ×2 (10:25→10:29)
[2017-05-15] MEDS: ALBUMIN HUMAN 25% 100 ML IV SCH (10:27)
[2017-05-15] MEDS: RISPERIDONE 1 MG/ML ORAL SOLN NG SCH ×2 (10:28→20:58)
[2017-05-15] MEDS: VALPROATE SODIUM 250 MG/5 ML ORAL SOLN PO SCH ×3 (10:28→20:58)
[2017-05-15] MEDS: FUROSEMIDE 40 MG/4 ML IV SCH (10:58)
[2017-05-15] MEDS: PAROXETINE 20 MG TABLET PO SCH (10:58)
[2017-05-16] VITALS (10 sets, daily range): BP systolic 115–151; BP diastolic 56–85
[2017-05-16 04:40] LABS: RED CELL DISTRIBUTION WIDTH 23.1 % (9.4-14.8)
[2017-05-16 04:48] LABS: ALBUMIN 1.8 g/dL (3.4-5.0); ANION GAP 4 mmol/L (5-15); CALCIUM 7.7 mg/dL (8.5-10.1); CHLORIDE 112 mmol/L (98-107)
[2017-05-16 04:53] LABS: ALANINE AMINOTRANSFERASE 182 U/L (12-78); ALKALINE PHOSPHATASE 108 U/L (45-117); BILIRUBIN,TOTAL 0.4 mg/dL (0.2-1.0); CREATININE 1.77 mg/dL (0.7-1.3); MEAN CORPUSCULAR HEMOGLOBIN 33.9 pg (27.5-34.5); MEAN CORPUSCULAR HGB CONC 32.4 g/dL (33.2-36.2); MEAN CORPUSCULAR VOLUME 104.6 fL (81-97); MEAN PLATELET VOLUME 9.2 fL (7.4-10.4); PLATELET COUNT 138 x10^3/uL (130-400); RED BLOOD COUNT 1.67 x10^6/uL (4.38-5.82); TOTAL PROTEIN 5.7 g/dL (6.4-8.2)
[2017-05-16 05:10] LABS: MD YES
[2017-05-16 05:12] LABS: BAND#(MANUAL) 3.65 x10^3/uL; BANDS%(MANUAL) 12 % (0-7); LYMPH#(MANUAL) 0.61 x10^3/uL (1-3.4); LYMPHS% (MANUAL) 2 % (22-44); SEG#(MANUAL) 26.14 x10^3/uL (1.8-6.8); SEGS% (MANUAL) 86 % (42-75)
[2017-05-16 05:13] LABS: <PLATELET ESTIMATE> DECREASED; <PLT MORPHOLOGY> NORMAL PLT MORPH; ANISOCYTOSIS 2+; HYPOCHROMIA 2+; OVALOCYTES 1+; POLYCHROMASIA 1+
[2017-05-16] MEDS: RISPERIDONE 1 MG/ML ORAL SOLN NG SCH ×2 (09:23→21:45)
[2017-05-16] MEDS: FENTANYL PF 2,500 MCG in SODIUM CHLORIDE 0.9% 200 ML IV PRN (09:23)
[2017-05-16] MEDS: VALPROATE SODIUM 250 MG/5 ML ORAL SOLN PO SCH ×3 (09:23→21:44)
[2017-05-16] MEDS: PAROXETINE 20 MG TABLET PO SCH (11:11)
[2017-05-16] MEDS: ALBUMIN HUMAN 25% 100 ML IV SCH (13:07)
[2017-05-16] MEDS: FUROSEMIDE 40 MG/4 ML IV SCH (14:38)
[2017-05-17 04:17] LABS: MEAN CORPUSCULAR HEMOGLOBIN 33.2 pg (27.5-34.5); MEAN CORPUSCULAR HGB CONC 33.1 g/dL (33.2-36.2); MEAN CORPUSCULAR VOLUME 100.3 fL (81-97); MEAN PLATELET VOLUME 9.2 fL (7.4-10.4); PLATELET COUNT 114 x10^3/uL (130-400); RED BLOOD COUNT 2.26 x10^6/uL (4.38-5.82); RED CELL DISTRIBUTION WIDTH 23.5 % (9.4-14.8)
[2017-05-17 04:24] LABS: ALANINE AMINOTRANSFERASE 140 U/L (12-78); ANION GAP 4 mmol/L (5-15); CALCIUM 7.6 mg/dL (8.5-10.1); CHLORIDE 113 mmol/L (98-107); CREATININE 2.11 mg/dL (0.7-1.3)
[2017-05-17 04:26] LABS: ALKALINE PHOSPHATASE 106 U/L (45-117); BILIRUBIN,TOTAL 0.4 mg/dL (0.2-1.0)
[2017-05-17 04:29] LABS: MD YES
[2017-05-17 04:31] LABS: BAND#(MANUAL) 0.97 x10^3/uL; BANDS%(MANUAL) 6 % (0-7); EOS#(MANUAL) 0.16 x10^3/uL (0.0-0.4); EOS% (MANUAL) 1 % (1-7); LYMPH#(MANUAL) 0.49 x10^3/uL (1-3.4); LYMPHS% (MANUAL) 3 % (22-44); MONOS#(MANUAL) 0.97 x10^3/uL (0.3-2.7); MONOS% (MANUAL) 6 % (2-9); SEG#(MANUAL) 13.61 x10^3/uL (1.8-6.8); SEGS% (MANUAL) 84 % (42-75)
[2017-05-17 04:32] LABS: <PLATELET ESTIMATE> DECREASED; <PLT MORPHOLOGY> NORMAL PLT MORPH; ANISOCYTOSIS 2+; HYPOCHROMIA 2+; OVALOCYTES 1+; POLYCHROMASIA 1+
[2017-05-17 05:00] VITALS: BP 119/62
[2017-05-17] MEDS: ALBUMIN HUMAN 25% 100 ML IV SCH (09:00)
[2017-05-17] MEDS: RISPERIDONE 1 MG/ML ORAL SOLN NG SCH ×2 (09:36→21:09)
[2017-05-17] MEDS: PAROXETINE 20 MG TABLET PO SCH (09:36)
[2017-05-17] MEDS: VALPROATE SODIUM 250 MG/5 ML ORAL SOLN PO SCH ×3 (09:36→21:08)
[2017-05-17] MEDS: ERGOCALCIFEROL 8,000UNIT/ML NG SCH (09:51)
[2017-05-17] MEDS: INSULIN ASPART 100 UNITS/ML, PEN SQ-INSULIN SCH (09:51)
[2017-05-17] MEDS: FUROSEMIDE 40 MG/4 ML IV SCH (10:30)
[2017-05-17] MEDS: ALBUTEROL/IPRATROPIUM 2.5MG/0.5MG, 3 ML NPPB SCH ×3 (14:50→23:00)
[2017-05-18] MEDS: hydrALAzine 20 MG/ML, 1ML IVPush PRN (00:38)
[2017-05-18] MEDS: ALBUTEROL/IPRATROPIUM 2.5MG/0.5MG, 3 ML NPPB SCH ×6 (02:12→18:49)
[2017-05-18 05:00] VITALS: BP 147/74
[2017-05-18] MEDS: ALBUMIN HUMAN 25% 100 ML IV SCH (08:27)
[2017-05-18] MEDS: PAROXETINE 20 MG TABLET PO SCH (09:17)
[2017-05-18] MEDS: VALPROATE SODIUM 250 MG/5 ML ORAL SOLN PO SCH ×3 (09:17→21:11)
[2017-05-18] MEDS: RISPERIDONE 1 MG/ML ORAL SOLN NG SCH ×2 (09:17→21:11)
[2017-05-18] MEDS: INSULIN ASPART 100 UNITS/ML, PEN SQ-INSULIN SCH (09:17)
[2017-05-18] MEDS: FENTANYL PF 2,500 MCG in SODIUM CHLORIDE 0.9% 200 ML IV PRN (11:12)
[2017-05-18] MEDS: FUROSEMIDE 40 MG/4 ML IV SCH (11:12)
[2017-05-18] MEDS ORDERED: SODIUM POLYSTYRENE SULFONATE ORAL SUSP PO ONE (14:00)
[2017-05-19] MEDS: ALBUTEROL/IPRATROPIUM 2.5MG/0.5MG, 3 ML NPPB SCH ×6 (03:00→22:53)
[2017-05-19 04:41] LABS: ANION GAP 5 mmol/L (5-15); CALCIUM 7.7 mg/dL (8.5-10.1); CHLORIDE 112 mmol/L (98-107)
[2017-05-19 04:42] LABS: CREATININE 2.88 mg/dL (0.7-1.3)
[2017-05-19 05:10] VITALS: BP 178/91
[2017-05-19] MEDS: hydrALAzine 20 MG/ML, 1ML IVPush PRN ×2 (05:29→15:33)
[2017-05-19] MEDS: METOPROLOL 1 MG/ML, 5ML IVPush PRN (06:22)
[2017-05-19] MEDS: VALPROATE SODIUM 250 MG/5 ML ORAL SOLN PO SCH ×3 (07:53→21:31)
[2017-05-19] MEDS: RISPERIDONE 1 MG/ML ORAL SOLN NG SCH ×2 (07:53→21:31)
[2017-05-19] MEDS: PAROXETINE 20 MG TABLET PO SCH (07:53)
[2017-05-19] MEDS: INSULIN ASPART 100 UNITS/ML, PEN SQ-INSULIN SCH (07:54)
[2017-05-19] MEDS: ALBUMIN HUMAN 25% 100 ML IV SCH (07:56)
[2017-05-19] MEDS ORDERED: SODIUM POLYSTYRENE SULFONATE ORAL SUSP PO ONE (08:00)
[2017-05-19] MEDS: FUROSEMIDE 40 MG/4 ML IV SCH (09:41)
[2017-05-20] MEDS: ALBUTEROL/IPRATROPIUM 2.5MG/0.5MG, 3 ML NPPB SCH ×6 (02:08→22:32)
[2017-05-20 05:00] VITALS: BP 142/74
[2017-05-20 07:38] LABS: BASOPHILS % (AUTO) 0 % (0-1); EOSINOPHILS # (AUTO) 0.06 x10^3/uL (0-0.4); EOSINOPHILS % (AUTO) 1 % (1-7); LYMPHOCYTES # (AUTO) 0.32 x10^3/uL (1-3.4); LYMPHOCYTES % (AUTO) 3 % (22-44); MD NO; MEAN CORPUSCULAR HEMOGLOBIN 33.5 pg (27.5-34.5); MEAN CORPUSCULAR HGB CONC 32.8 g/dL (33.2-36.2); MEAN CORPUSCULAR VOLUME 102.2 fL (81-97); MEAN PLATELET VOLUME 9.6 fL (7.4-10.4); MONOCYTES # (AUTO) 0.34 x10^3/uL (0.2-0.8); MONOCYTES % (AUTO) 3 % (2-9); NEUTROPHILS # (AUTO) 10.97 x10^3/uL (1.8-6.8); NEUTROPHILS % (AUTO) 94 % (42-75); PLATELET COUNT 111 x10^3/uL (130-400); RED BLOOD COUNT 2.23 x10^6/uL (4.38-5.82); RED CELL DISTRIBUTION WIDTH 22.5 % (9.4-14.8)
[2017-05-20 07:58] LABS: ANION GAP 6 mmol/L (5-15); CALCIUM 7.7 mg/dL (8.5-10.1); CHLORIDE 112 mmol/L (98-107); CREATININE 3.37 mg/dL (0.7-1.3)
[2017-05-20] MEDS: RISPERIDONE 1 MG/ML ORAL SOLN NG SCH ×2 (08:08→20:38)
[2017-05-20] MEDS: PAROXETINE 20 MG TABLET PO SCH (08:08)
[2017-05-20] MEDS: INSULIN ASPART 100 UNITS/ML, PEN SQ-INSULIN SCH (08:08)
[2017-05-20] MEDS: VALPROATE SODIUM 250 MG/5 ML ORAL SOLN PO SCH ×3 (08:08→20:38)
[2017-05-20] MEDS: FENTANYL PF 2,500 MCG in SODIUM CHLORIDE 0.9% 200 ML IV PRN (08:09)
[2017-05-20] MEDS: ALBUMIN HUMAN 25% 100 ML IV SCH (09:22)
[2017-05-20] MEDS: FUROSEMIDE 40 MG/4 ML IV SCH (10:42)
[2017-05-20] MEDS: MIDAZOLAM 1 MG/ML, 5ML IVPush PRN (13:24)
[2017-05-20] MEDS ORDERED: MIDAZOLAM 1 MG/ML, 5ML IVPush PRN (15:30)
[2017-05-21] MEDS: ALBUTEROL/IPRATROPIUM 2.5MG/0.5MG, 3 ML NPPB SCH ×6 (02:31→23:10)
[2017-05-21 05:11] VITALS: BP 132/61
[2017-05-21] MEDS: ALBUMIN HUMAN 25% 100 ML IV SCH (08:45)
[2017-05-21] MEDS: PAROXETINE 20 MG TABLET PO SCH (08:45)
[2017-05-21] MEDS: RISPERIDONE 1 MG/ML ORAL SOLN NG SCH ×2 (08:45→20:46)
[2017-05-21] MEDS: VALPROATE SODIUM 250 MG/5 ML ORAL SOLN PO SCH ×3 (08:45→20:46)
[2017-05-21] MEDS: INSULIN ASPART 100 UNITS/ML, PEN SQ-INSULIN SCH (08:48)
[2017-05-21] MEDS: FUROSEMIDE 40 MG/4 ML IV SCH (09:25)
[2017-05-21 09:37] LABS: MEAN CORPUSCULAR HEMOGLOBIN 33.9 pg (27.5-34.5); MEAN CORPUSCULAR HGB CONC 33.4 g/dL (33.2-36.2); MEAN CORPUSCULAR VOLUME 101.6 fL (81-97); MEAN PLATELET VOLUME 10.1 fL (7.4-10.4); PLATELET COUNT 107 x10^3/uL (130-400); RED BLOOD COUNT 2.14 x10^6/uL (4.38-5.82)
[2017-05-21 09:40] LABS: RED CELL DISTRIBUTION WIDTH 21.7 % (9.4-14.8)
[2017-05-21 09:44] LABS: ALANINE AMINOTRANSFERASE 106 U/L (12-78); ALBUMIN 2.1 g/dL (3.4-5.0); ANION GAP 6 mmol/L (5-15); CALCIUM 7.8 mg/dL (8.5-10.1); CHLORIDE 112 mmol/L (98-107); CREATININE 3.84 mg/dL (0.7-1.3)
[2017-05-21 09:47] LABS: ALKALINE PHOSPHATASE 78 U/L (45-117); BILIRUBIN,TOTAL 0.4 mg/dL (0.2-1.0); TOTAL PROTEIN 6.1 g/dL (6.4-8.2)
[2017-05-21 10:05] LABS: BASOPHILS % (AUTO) 0 % (0-1); EOSINOPHILS # (AUTO) 0.15 x10^3/uL (0-0.4); EOSINOPHILS % (AUTO) 2 % (1-7); LYMPHOCYTES # (AUTO) 0.39 x10^3/uL (1-3.4); LYMPHOCYTES % (AUTO) 5 % (22-44); MD SCAN; MONOCYTES # (AUTO) 0.29 x10^3/uL (0.2-0.8); MONOCYTES % (AUTO) 4 % (2-9); NEUTROPHILS # (AUTO) 7.48 x10^3/uL (1.8-6.8); NEUTROPHILS % (AUTO) 90 % (42-75)
[2017-05-21] MEDS: FENTANYL PF 2,500 MCG in SODIUM CHLORIDE 0.9% 200 ML IV PRN (15:01)
[2017-05-22] MEDS: ALBUTEROL/IPRATROPIUM 2.5MG/0.5MG, 3 ML NPPB SCH ×2 (02:25→06:55)
[2017-05-22 05:00] VITALS: BP 133/67
[2017-05-22] MEDS: VALPROATE SODIUM 250 MG/5 ML ORAL SOLN PO SCH ×3 (08:38→21:31)
[2017-05-22] MEDS: PAROXETINE 20 MG TABLET PO SCH (08:38)
[2017-05-22] MEDS: RISPERIDONE 1 MG/ML ORAL SOLN NG SCH ×2 (08:38→21:30)
[2017-05-22] MEDS: ALBUMIN HUMAN 25% 100 ML IV SCH (08:38)
[2017-05-22] MEDS: INSULIN ASPART 100 UNITS/ML, PEN SQ-INSULIN SCH (08:39)
[2017-05-22] MEDS ORDERED: FUROSEMIDE 40 MG/4 ML IV ONE (11:00)
[2017-05-22] MEDS: FENTANYL PF 2,500 MCG in SODIUM CHLORIDE 0.9% 200 ML IV PRN (14:52)
[2017-05-23 04:25] LABS: ALANINE AMINOTRANSFERASE 71 U/L (12-78); ALBUMIN 2.1 g/dL (3.4-5.0); ANION GAP 9 mmol/L (5-15); CALCIUM 7.9 mg/dL (8.5-10.1); CHLORIDE 112 mmol/L (98-107); CREATININE 4.46 mg/dL (0.7-1.3)
[2017-05-23 04:27] LABS: ALKALINE PHOSPHATASE 94 U/L (45-117); BILIRUBIN,TOTAL 0.6 mg/dL (0.2-1.0); MEAN CORPUSCULAR HEMOGLOBIN 33.9 pg (27.5-34.5); MEAN CORPUSCULAR HGB CONC 33.5 g/dL (33.2-36.2); MEAN CORPUSCULAR VOLUME 101.1 fL (81-97); MEAN PLATELET VOLUME 10.8 fL (7.4-10.4); PLATELET COUNT 117 x10^3/uL (130-400); RED BLOOD COUNT 1.79 x10^6/uL (4.38-5.82); RED CELL DISTRIBUTION WIDTH 20.9 % (9.4-14.8); TOTAL PROTEIN 6.1 g/dL (6.4-8.2)
[2017-05-23 04:46] LABS: BASOPHILS % (AUTO) 0 % (0-1); EOSINOPHILS # (AUTO) 0.01 x10^3/uL (0-0.4); EOSINOPHILS % (AUTO) 0 % (1-7); LYMPHOCYTES # (AUTO) 0.22 x10^3/uL (1-3.4); LYMPHOCYTES % (AUTO) 1 % (22-44); MD SCAN; MONOCYTES % (AUTO) 3 % (2-9); NEUTROPHILS # (AUTO) 15.91 x10^3/uL (1.8-6.8); NEUTROPHILS % (AUTO) 96 % (42-75)
[2017-05-23 05:00] VITALS: BP 111/50
[2017-05-23] MEDS: SODIUM POLYSTYRENE SULFONATE ORAL SUSP PO SCH ×4 (09:15→22:01)
[2017-05-23] MEDS: VALPROATE SODIUM 250 MG/5 ML ORAL SOLN PO SCH ×3 (09:15→22:01)
[2017-05-23] MEDS: ALBUMIN HUMAN 25% 100 ML IV SCH (09:15)
[2017-05-23] MEDS: RISPERIDONE 1 MG/ML ORAL SOLN NG SCH ×2 (09:16→22:01)
[2017-05-23] MEDS: PAROXETINE 20 MG TABLET PO SCH (09:16)
[2017-05-23] MEDS: INSULIN ASPART 100 UNITS/ML, PEN SQ-INSULIN SCH (09:34)
[2017-05-23 11:00] VITALS: BP 131/75
[2017-05-23 11:15] VITALS: BP 115/64
[2017-05-23 12:00] VITALS: BP 129/63
[2017-05-23 13:20] VITALS: BP 155/81
[2017-05-23] MEDS: FENTANYL PF 2,500 MCG in SODIUM CHLORIDE 0.9% 200 ML IV PRN (14:37)
[2017-05-24 05:08] LABS: MEAN CORPUSCULAR HEMOGLOBIN 33.3 pg (27.5-34.5); MEAN CORPUSCULAR HGB CONC 33.8 g/dL (33.2-36.2); MEAN CORPUSCULAR VOLUME 98.6 fL (81-97); RED BLOOD COUNT 1.97 x10^6/uL (4.38-5.82)
[2017-05-24 05:12] LABS: ANION GAP 12 mmol/L (5-15); CALCIUM 7.6 mg/dL (8.5-10.1); CHLORIDE 111 mmol/L (98-107)
[2017-05-24 05:17] LABS: CREATININE 4.89 mg/dL (0.7-1.3)
[2017-05-24 05:42] LABS: PLATELET COUNT 94 x10^3/uL (130-400)
[2017-05-24 05:43] LABS: BASOPHILS % (AUTO) 0 % (0-1); EOSINOPHILS # (AUTO) 0.04 x10^3/uL (0-0.4); EOSINOPHILS % (AUTO) 0 % (1-7); LYMPHOCYTES % (AUTO) 3 % (22-44); MD SCAN; MONOCYTES # (AUTO) 0.43 x10^3/uL (0.2-0.8); MONOCYTES % (AUTO) 4 % (2-9); NEUTROPHILS # (AUTO) 10.45 x10^3/uL (1.8-6.8); NEUTROPHILS % (AUTO) 93 % (42-75)
[2017-05-24] MEDS: SODIUM POLYSTYRENE SULFONATE ORAL SUSP PO SCH ×4 (06:09→21:00)
[2017-05-24] MEDS: INSULIN ASPART 100 UNITS/ML, PEN SQ-INSULIN SCH (11:00)
[2017-05-24 11:27] VITALS: BP 123/64
[2017-05-24 11:47] VITALS: BP 108/62
[2017-05-24 13:45] VITALS: BP 124/70
[2017-05-24] MEDS: VALPROATE SODIUM 250 MG/5 ML ORAL SOLN PO SCH ×3 (14:58→21:13)
[2017-05-24] MEDS: ERGOCALCIFEROL 8,000UNIT/ML NG SCH (14:58)
[2017-05-24] MEDS: RISPERIDONE 1 MG/ML ORAL SOLN NG SCH ×2 (14:59→21:14)
[2017-05-24] MEDS: PAROXETINE 20 MG TABLET PO SCH (14:59)
[2017-05-24] MEDS ORDERED: NALOXONE 0.4 MG/ML, 1ML ONE (15:33)
[2017-05-24] MEDS: FENTANYL PF 2,500 MCG in SODIUM CHLORIDE 0.9% 200 ML IV PRN (16:20)
[2017-05-25 03:28] LABS: MEAN CORPUSCULAR HEMOGLOBIN 32.6 pg (27.5-34.5); MEAN CORPUSCULAR HGB CONC 33.7 g/dL (33.2-36.2); MEAN CORPUSCULAR VOLUME 96.8 fL (81-97); MEAN PLATELET VOLUME 10.9 fL (7.4-10.4); PLATELET COUNT 103 x10^3/uL (130-400); RED BLOOD COUNT 2.53 x10^6/uL (4.38-5.82); RED CELL DISTRIBUTION WIDTH 22.9 % (9.4-14.8)
[2017-05-25 03:36] LABS: ALANINE AMINOTRANSFERASE 68 U/L (12-78); ALBUMIN 1.9 g/dL (3.4-5.0); ANION GAP 12 mmol/L (5-15); CALCIUM 7.7 mg/dL (8.5-10.1); CHLORIDE 110 mmol/L (98-107); CREATININE 5.13 mg/dL (0.7-1.3)
[2017-05-25 03:40] LABS: BASOPHILS % (AUTO) 0 % (0-1); EOSINOPHILS # (AUTO) 0.18 x10^3/uL (0-0.4); EOSINOPHILS % (AUTO) 1 % (1-7); LYMPHOCYTES # (AUTO) 0.32 x10^3/uL (1-3.4); LYMPHOCYTES % (AUTO) 3 % (22-44); MD SCAN; MONOCYTES # (AUTO) 0.45 x10^3/uL (0.2-0.8); MONOCYTES % (AUTO) 4 % (2-9); NEUTROPHILS # (AUTO) 11.92 x10^3/uL (1.8-6.8); NEUTROPHILS % (AUTO) 93 % (42-75)
[2017-05-25 03:43] LABS: ALKALINE PHOSPHATASE 104 U/L (45-117); BILIRUBIN,TOTAL 0.4 mg/dL (0.2-1.0); TOTAL PROTEIN 6.1 g/dL (6.4-8.2)
[2017-05-25] MEDS: SODIUM POLYSTYRENE SULFONATE ORAL SUSP PO SCH ×4 (06:14→20:36)
[2017-05-25] MEDS: INSULIN ASPART 100 UNITS/ML, PEN SQ-INSULIN SCH (07:33)
[2017-05-25] MEDS: RISPERIDONE 1 MG/ML ORAL SOLN NG SCH ×2 (10:06→20:36)
[2017-05-25] MEDS: VALPROATE SODIUM 250 MG/5 ML ORAL SOLN PO SCH ×3 (10:06→20:36)
[2017-05-25] MEDS: PAROXETINE 20 MG TABLET PO SCH (10:06)
[2017-05-26] MEDS: FENTANYL PF 2,500 MCG in SODIUM CHLORIDE 0.9% 200 ML IV PRN (03:04)
[2017-05-26] MEDS: hydrALAzine 20 MG/ML, 1ML IVPush PRN (05:37)
[2017-05-26] MEDS: SODIUM POLYSTYRENE SULFONATE ORAL SUSP PO SCH (06:17)
[2017-05-26] MEDS: RISPERIDONE 1 MG/ML ORAL SOLN NG SCH ×2 (08:07→20:23)
[2017-05-26] MEDS: PAROXETINE 20 MG TABLET PO SCH (08:07)
[2017-05-26] MEDS: VALPROATE SODIUM 250 MG/5 ML ORAL SOLN PO SCH ×3 (08:08→20:23)
[2017-05-26] MEDS: INSULIN ASPART 100 UNITS/ML, PEN SQ-INSULIN SCH (08:08)
[2017-05-26 11:09] LABS: BASOPHILS % (AUTO) 0 % (0-1); EOSINOPHILS # (AUTO) 0.15 x10^3/uL (0-0.4); EOSINOPHILS % (AUTO) 1 % (1-7); LYMPHOCYTES # (AUTO) 0.29 x10^3/uL (1-3.4); LYMPHOCYTES % (AUTO) 2 % (22-44); MD NO; MEAN CORPUSCULAR HEMOGLOBIN 32.8 pg (27.5-34.5); MEAN CORPUSCULAR HGB CONC 34.3 g/dL (33.2-36.2); MEAN CORPUSCULAR VOLUME 95.8 fL (81-97); MEAN PLATELET VOLUME 10.6 fL (7.4-10.4); MONOCYTES # (AUTO) 0.51 x10^3/uL (0.2-0.8); MONOCYTES % (AUTO) 4 % (2-9); NEUTROPHILS # (AUTO) 13.58 x10^3/uL (1.8-6.8); NEUTROPHILS % (AUTO) 94 % (42-75); PLATELET COUNT 130 x10^3/uL (130-400); RED BLOOD COUNT 2.61 x10^6/uL (4.38-5.82); RED CELL DISTRIBUTION WIDTH 21.3 % (9.4-14.8)
[2017-05-26 11:17] LABS: ANION GAP 14 mmol/L (5-15); CALCIUM 7.6 mg/dL (8.5-10.1); CHLORIDE 108 mmol/L (98-107); CREATININE 5.38 mg/dL (0.7-1.3)
[2017-05-27] MEDS: FENTANYL PF 2,500 MCG in SODIUM CHLORIDE 0.9% 200 ML IV PRN (03:46)
[2017-05-27 04:20] LABS: MEAN CORPUSCULAR HEMOGLOBIN 32.5 pg (27.5-34.5); MEAN CORPUSCULAR HGB CONC 34.1 g/dL (33.2-36.2); MEAN CORPUSCULAR VOLUME 95.2 fL (81-97); MEAN PLATELET VOLUME 9.5 fL (7.4-10.4); PLATELET COUNT 123 x10^3/uL (130-400); RED BLOOD COUNT 2.68 x10^6/uL (4.38-5.82); RED CELL DISTRIBUTION WIDTH 20.7 % (9.4-14.8)
[2017-05-27 04:28] LABS: ANION GAP 13 mmol/L (5-15); CALCIUM 7.5 mg/dL (8.5-10.1); CHLORIDE 107 mmol/L (98-107)
[2017-05-27 04:31] LABS: CREATININE 5.69 mg/dL (0.7-1.3)
[2017-05-27] MEDS: hydrALAzine 20 MG/ML, 1ML IVPush PRN (05:07)
[2017-05-27 05:43] LABS: BASOPHILS % (AUTO) 0 % (0-1); EOSINOPHILS # (AUTO) 0.04 x10^3/uL (0-0.4); EOSINOPHILS % (AUTO) 0 % (1-7); LYMPHOCYTES # (AUTO) 0.36 x10^3/uL (1-3.4); LYMPHOCYTES % (AUTO) 3 % (22-44); MD SCAN; MONOCYTES # (AUTO) 0.55 x10^3/uL (0.2-0.8); MONOCYTES % (AUTO) 4 % (2-9); NEUTROPHILS # (AUTO) 12.74 x10^3/uL (1.8-6.8); NEUTROPHILS % (AUTO) 93 % (42-75)
[2017-05-27] MEDS: INSULIN ASPART 100 UNITS/ML, PEN SQ-INSULIN SCH (11:30)
[2017-05-27] MEDS: VALPROATE SODIUM 250 MG/5 ML ORAL SOLN PO SCH ×3 (11:36→20:54)
[2017-05-27] MEDS: RISPERIDONE 1 MG/ML ORAL SOLN NG SCH ×2 (11:37→20:54)
[2017-05-27] MEDS: PAROXETINE 20 MG TABLET PO SCH (11:38)
[2017-05-28] MEDS: FENTANYL PF 2,500 MCG in SODIUM CHLORIDE 0.9% 200 ML IV PRN (06:00)
[2017-05-28] MEDS: RISPERIDONE 1 MG/ML ORAL SOLN NG SCH ×2 (09:05→19:57)
[2017-05-28] MEDS: PAROXETINE 20 MG TABLET PO SCH (09:06)
[2017-05-28] MEDS: VALPROATE SODIUM 250 MG/5 ML ORAL SOLN PO SCH ×3 (09:06→19:57)
[2017-05-28] MEDS: INSULIN ASPART 100 UNITS/ML, PEN SQ-INSULIN SCH (09:07)
[2017-05-28] MEDS: hydrALAzine 20 MG/ML, 1ML IVPush PRN (23:12)
[2017-05-29] MEDS: FENTANYL PF 2,500 MCG in SODIUM CHLORIDE 0.9% 200 ML IV PRN (04:54)
[2017-05-29] MEDS: RISPERIDONE 1 MG/ML ORAL SOLN NG SCH ×2 (08:34→19:41)
[2017-05-29] MEDS: VALPROATE SODIUM 250 MG/5 ML ORAL SOLN PO SCH ×3 (08:35→19:41)
[2017-05-29] MEDS: PAROXETINE 20 MG TABLET PO SCH (08:36)
[2017-05-29] MEDS: INSULIN ASPART 100 UNITS/ML, PEN SQ-INSULIN SCH (08:37)
[2017-05-30] MEDS: FENTANYL PF 2,500 MCG in SODIUM CHLORIDE 0.9% 200 ML IV PRN (06:10)
[2017-05-30] MEDS: VALPROATE SODIUM 250 MG/5 ML ORAL SOLN PO SCH ×3 (10:50→21:26)
[2017-05-30] MEDS: RISPERIDONE 1 MG/ML ORAL SOLN NG SCH ×2 (10:50→21:26)
[2017-05-30] MEDS: PAROXETINE 20 MG TABLET PO SCH (10:50)
[2017-05-30] MEDS: INSULIN ASPART 100 UNITS/ML, PEN SQ-INSULIN SCH (12:45)
[2017-05-31] MEDS: VALPROATE SODIUM 250 MG/5 ML ORAL SOLN PO SCH ×3 (09:00→20:38)
[2017-05-31] MEDS: PAROXETINE 20 MG TABLET PO SCH (09:00)
[2017-05-31] MEDS: ERGOCALCIFEROL 8,000UNIT/ML NG SCH (09:01)
[2017-05-31] MEDS: RISPERIDONE 1 MG/ML ORAL SOLN NG SCH ×2 (09:01→20:38)
[2017-05-31] MEDS: FENTANYL PF 2,500 MCG in SODIUM CHLORIDE 0.9% 200 ML IV PRN (10:49)
[2017-05-31] MEDS: INSULIN ASPART 100 UNITS/ML, PEN SQ-INSULIN SCH (10:52)
[2017-06-01] MEDS: INSULIN ASPART 100 UNITS/ML, PEN SQ-INSULIN SCH (09:00)
[2017-06-01] MEDS: PAROXETINE 20 MG TABLET PO SCH (09:35)
[2017-06-01] MEDS: RISPERIDONE 1 MG/ML ORAL SOLN NG SCH ×2 (09:36→20:59)
[2017-06-01] MEDS: VALPROATE SODIUM 250 MG/5 ML ORAL SOLN PO SCH ×3 (09:36→20:58)
[2017-06-01] MEDS: FENTANYL PF 2,500 MCG in SODIUM CHLORIDE 0.9% 200 ML IV PRN (16:31)
[2017-06-02] MEDS: PAROXETINE 20 MG TABLET PO SCH (10:11)
[2017-06-02] MEDS: RISPERIDONE 1 MG/ML ORAL SOLN NG SCH ×2 (10:11→21:13)
[2017-06-02] MEDS: VALPROATE SODIUM 250 MG/5 ML ORAL SOLN PO SCH ×3 (10:11→21:13)
[2017-06-02] MEDS: INSULIN ASPART 100 UNITS/ML, PEN SQ-INSULIN SCH (10:31)
[2017-06-02] MEDS: FENTANYL PF 2,500 MCG in SODIUM CHLORIDE 0.9% 200 ML IV PRN (15:24)
[2017-06-03 05:24] LABS: ALBUMIN 1.5 g/dL (3.4-5.0); ANION GAP 20 mmol/L (5-15); CALCIUM 7.7 mg/dL (8.5-10.1); CHLORIDE 102 mmol/L (98-107)
[2017-06-03 05:29] LABS: ALANINE AMINOTRANSFERASE 31 U/L (12-78); ALKALINE PHOSPHATASE 73 U/L (45-117); BILIRUBIN,TOTAL 0.5 mg/dL (0.2-1.0); CREATININE 7.53 mg/dL (0.7-1.3); TOTAL PROTEIN 5.8 g/dL (6.4-8.2)
[2017-06-03 05:47] LABS: MEAN CORPUSCULAR HEMOGLOBIN 32.3 pg (27.5-34.5); MEAN CORPUSCULAR HGB CONC 34.3 g/dL (33.2-36.2); MEAN CORPUSCULAR VOLUME 94.2 fL (81-97); MEAN PLATELET VOLUME 11.4 fL (7.4-10.4); PLATELET COUNT 112 x10^3/uL (130-400); RED CELL DISTRIBUTION WIDTH 19.3 % (9.4-14.8)
[2017-06-03 06:30] LABS: BASOPHILS % (AUTO) 0 % (0-1); EOSINOPHILS # (AUTO) 0.02 x10^3/uL (0-0.4); EOSINOPHILS % (AUTO) 0 % (1-7); LYMPHOCYTES # (AUTO) 0.17 x10^3/uL (1-3.4); LYMPHOCYTES % (AUTO) 1 % (22-44); MD SCAN; MONOCYTES # (AUTO) 0.02 x10^3/uL (0.2-0.8); MONOCYTES % (AUTO) 0 % (2-9); NEUTROPHILS # (AUTO) 12.19 x10^3/uL (1.8-6.8); NEUTROPHILS % (AUTO) 98 % (42-75)
[2017-06-03] MEDS: PAROXETINE 20 MG TABLET PO SCH (09:20)
[2017-06-03] MEDS: RISPERIDONE 1 MG/ML ORAL SOLN NG SCH ×2 (09:21→21:18)
[2017-06-03] MEDS: VALPROATE SODIUM 250 MG/5 ML ORAL SOLN PO SCH ×3 (09:21→21:18)
[2017-06-03] MEDS: INSULIN ASPART 100 UNITS/ML, PEN SQ-INSULIN SCH (09:21)
[2017-06-03] MEDS ORDERED: MIDAZOLAM 1 MG/ML, 5ML ONE (11:20)
[2017-06-03] MEDS: FENTANYL PF 2,500 MCG in SODIUM CHLORIDE 0.9% 200 ML IV PRN (18:10)
[2017-06-03 21:27] VITALS: BP 100/42
[2017-06-03 21:43] VITALS: BP 114/46
[2017-06-04 00:01] VITALS: BP 125/57
[2017-06-04 04:48] LABS: MEAN CORPUSCULAR HEMOGLOBIN 31.9 pg (27.5-34.5); MEAN CORPUSCULAR HGB CONC 34.6 g/dL (33.2-36.2); MEAN CORPUSCULAR VOLUME 92.4 fL (81-97); RED BLOOD COUNT 2.23 x10^6/uL (4.38-5.82); RED CELL DISTRIBUTION WIDTH 20.5 % (9.4-14.8)
[2017-06-04 05:35] LABS: BASOPHILS % (AUTO) 0 % (0-1); EOSINOPHILS % (AUTO) 0 % (1-7); LYMPHOCYTES # (AUTO) 0.24 x10^3/uL (1-3.4); LYMPHOCYTES % (AUTO) 2 % (22-44); MD SCAN; MEAN PLATELET VOLUME 11.5 fL (7.4-10.4); MONOCYTES # (AUTO) 0.34 x10^3/uL (0.2-0.8); MONOCYTES % (AUTO) 3 % (2-9); NEUTROPHILS # (AUTO) 12.11 x10^3/uL (1.8-6.8); NEUTROPHILS % (AUTO) 95 % (42-75); PLATELET COUNT 96 x10^3/uL (130-400)
[2017-06-04] MEDS: PAROXETINE 20 MG TABLET PO SCH (08:12)
[2017-06-04] MEDS: VALPROATE SODIUM 250 MG/5 ML ORAL SOLN PO SCH ×3 (08:13→21:13)
[2017-06-04] MEDS: RISPERIDONE 1 MG/ML ORAL SOLN NG SCH ×2 (08:14→21:13)
[2017-06-04] MEDS: INSULIN ASPART 100 UNITS/ML, PEN SQ-INSULIN SCH (08:21)
[2017-06-04] MEDS: FENTANYL PF 2,500 MCG in SODIUM CHLORIDE 0.9% 200 ML IV PRN (17:25)
[2017-06-05] MEDS: INSULIN ASPART 100 UNITS/ML, PEN SQ-INSULIN SCH (08:26)
[2017-06-05] MEDS: PAROXETINE 20 MG TABLET PO SCH (08:27)
[2017-06-05] MEDS: RISPERIDONE 1 MG/ML ORAL SOLN NG SCH ×2 (08:27→21:12)
[2017-06-05] MEDS: VALPROATE SODIUM 250 MG/5 ML ORAL SOLN PO SCH ×3 (08:27→21:12)
[2017-06-05] MEDS: FENTANYL PF 2,500 MCG in SODIUM CHLORIDE 0.9% 200 ML IV PRN (14:43)
[2017-06-06] MEDS: PAROXETINE 20 MG TABLET PO SCH (08:21)
[2017-06-06] MEDS: VALPROATE SODIUM 250 MG/5 ML ORAL SOLN PO SCH ×3 (08:21→22:17)
[2017-06-06] MEDS: RISPERIDONE 1 MG/ML ORAL SOLN NG SCH ×2 (08:21→22:17)
[2017-06-06] MEDS: INSULIN ASPART 100 UNITS/ML, PEN SQ-INSULIN SCH (08:53)
[2017-06-06] MEDS ORDERED: SODIUM CHLORIDE 0.9%, 500ML IVBOLUS ONE (13:30)
[2017-06-06] MEDS: FENTANYL PF 2,500 MCG in SODIUM CHLORIDE 0.9% 200 ML IV PRN (14:13)
[2017-06-06] MEDS ORDERED: ALBUMIN HUMAN 25% 100 ML IV ONE (15:30)
[2017-06-06] MEDS ORDERED: SODIUM CHLORIDE 0.9%, 250ML IVBOLUS ONE (15:30)
[2017-06-07 04:44] LABS: MEAN CORPUSCULAR HEMOGLOBIN 31.9 pg (27.5-34.5); MEAN CORPUSCULAR HGB CONC 34.6 g/dL (33.2-36.2); MEAN CORPUSCULAR VOLUME 92.3 fL (81-97); RED BLOOD COUNT 2.37 x10^6/uL (4.38-5.82); RED CELL DISTRIBUTION WIDTH 21.3 % (9.4-14.8)
[2017-06-07 04:52] LABS: ANION GAP 21 mmol/L (5-15); CHLORIDE 99 mmol/L (98-107)
[2017-06-07 04:55] LABS: CREATININE 8.21 mg/dL (0.7-1.3)
[2017-06-07 05:10] LABS: BASOPHILS % (AUTO) 0 % (0-1); EOSINOPHILS # (AUTO) 0.01 x10^3/uL (0-0.4); EOSINOPHILS % (AUTO) 0 % (1-7); LYMPHOCYTES # (AUTO) 0.29 x10^3/uL (1-3.4); LYMPHOCYTES % (AUTO) 2 % (22-44); MD SCAN; MEAN PLATELET VOLUME 12.2 fL (7.4-10.4); MONOCYTES # (AUTO) 0.15 x10^3/uL (0.2-0.8); MONOCYTES % (AUTO) 1 % (2-9); NEUTROPHILS # (AUTO) 15.95 x10^3/uL (1.8-6.8); NEUTROPHILS % (AUTO) 97 % (42-75); PLATELET COUNT 57 x10^3/uL (130-400)
[2017-06-07] MEDS: VALPROATE SODIUM 250 MG/5 ML ORAL SOLN PO SCH ×3 (08:58→20:58)
[2017-06-07] MEDS: ERGOCALCIFEROL 8,000UNIT/ML NG SCH (08:58)
[2017-06-07] MEDS: PAROXETINE 20 MG TABLET PO SCH (09:04)
[2017-06-07] MEDS: RISPERIDONE 1 MG/ML ORAL SOLN NG SCH ×2 (09:04→20:58)
[2017-06-07] MEDS: INSULIN ASPART 100 UNITS/ML, PEN SQ-INSULIN SCH (09:14)
[2017-06-07] MEDS ORDERED: HYDROmorphone 1 MG/ML, 1ML IV PRN (10:30)
[2017-06-07] MEDS: FENTANYL 100 MCG PATCH TD SCH (12:19)
[2017-06-08 04:08] VITALS: BP 109/73
[2017-06-08] MEDS: RISPERIDONE 1 MG/ML ORAL SOLN NG SCH ×2 (09:21→20:17)
[2017-06-08] MEDS: PAROXETINE 20 MG TABLET PO SCH (09:21)
[2017-06-08] MEDS: VALPROATE SODIUM 250 MG/5 ML ORAL SOLN PO SCH ×3 (09:21→20:17)
[2017-06-08] MEDS: INSULIN ASPART 100 UNITS/ML, PEN SQ-INSULIN SCH (09:22)
[2017-06-09] MEDS: VALPROATE SODIUM 250 MG/5 ML ORAL SOLN PO SCH ×3 (07:52→20:12)
[2017-06-09] MEDS: RISPERIDONE 1 MG/ML ORAL SOLN NG SCH ×2 (07:52→20:12)
[2017-06-09] MEDS: PAROXETINE 20 MG TABLET PO SCH (07:52)
[2017-06-09] MEDS: INSULIN ASPART 100 UNITS/ML, PEN SQ-INSULIN SCH (07:53)
[2017-06-10 04:00] VITALS: BP 95/44
[2017-06-10 08:00] VITALS: BP 82/46
[2017-06-10] MEDS: VALPROATE SODIUM 250 MG/5 ML ORAL SOLN PO SCH ×3 (09:40→19:59)
[2017-06-10] MEDS: INSULIN ASPART 100 UNITS/ML, PEN SQ-INSULIN SCH (09:41)
[2017-06-10] MEDS: RISPERIDONE 1 MG/ML ORAL SOLN NG SCH ×2 (09:41→20:00)
[2017-06-10] MEDS: PAROXETINE 20 MG TABLET PO SCH (09:41)
[2017-06-10] MEDS: FENTANYL 100 MCG PATCH TD SCH (10:59)
[2017-06-11] MEDS: PAROXETINE 20 MG TABLET PO SCH (09:32)
[2017-06-11] MEDS: VALPROATE SODIUM 250 MG/5 ML ORAL SOLN PO SCH ×3 (09:32→19:42)
[2017-06-11] MEDS: RISPERIDONE 1 MG/ML ORAL SOLN NG SCH ×2 (09:32→19:43)
[2017-06-11] MEDS: SODIUM CHLORIDE 0.9% 500 ML IV SCH (19:47)
== END 2017-06-12 04:40 | disposition expired | DRG 260 ==
LOC: ED 13:40 → EDIP 13:41 → ED 13:55 → 5SO 20:46 → CCU 03-06 03:29 → 5SO 03-08 18:59 → CCU 03-11 08:05 → ICU 05-03 15:35 → CCU 05-04 21:49
PROVIDERS: ADMIT Internal Medicine; ATTEND Internal Medicine
PROC: 0T9B70Z Drainage of Bladder with Drainage Device, Via Natural or Artificial Opening (ICD-10-PCS; 2017-03-05)
PROC: 02H633Z Insertion of Infusion Device into Right Atrium, Percutaneous Approach (ICD-10-PCS; 2017-03-06)
PROC: 0W983ZZ Drainage of Chest Wall, Percutaneous Approach (ICD-10-PCS; 2017-03-11)
PROC: 02PA3MZ Removal of Cardiac Lead from Heart, Percutaneous Approach (ICD-10-PCS; 2017-03-13)
PROC: 0JPT0PZ Removal of Cardiac Rhythm Related Device from Trunk Subcutaneous Tissue and Fascia, Open Approach (ICD-10-PCS; principal; 2017-03-13 08:00)
PROC: 0BH17EZ Insertion of Endotracheal Airway into Trachea, Via Natural or Artificial Opening (ICD-10-PCS; 2017-03-14)
PROC: 5A1955Z Respiratory Ventilation, Greater than 96 Consecutive Hours (ICD-10-PCS; 2017-03-14)
PROC: 30233N1 Transfusion of Nonautologous Red Blood Cells into Peripheral Vein, Percutaneous Approach (ICD-10-PCS; 2017-03-15)
PROC: 02HV33Z Insertion of Infusion Device into Superior Vena Cava, Percutaneous Approach (ICD-10-PCS; 2017-04-05)
PROC: B548ZZA Ultrasonography of Superior Vena Cava, Guidance (ICD-10-PCS; 2017-04-05)
PROC: 5A1D70Z Performance of Urinary Filtration, Intermittent, Less than 6 Hours Per Day (ICD-10-PCS; 2017-04-05)
PROC: 5A1D70Z Performance of Urinary Filtration, Intermittent, Less than 6 Hours Per Day (ICD-10-PCS; 2017-04-06)
PROC: 5A1D70Z Performance of Urinary Filtration, Intermittent, Less than 6 Hours Per Day (ICD-10-PCS; 2017-04-07)
PROC: 5A1D70Z Performance of Urinary Filtration, Intermittent, Less than 6 Hours Per Day (ICD-10-PCS; 2017-04-08)
PROC: 5A1D70Z Performance of Urinary Filtration, Intermittent, Less than 6 Hours Per Day (ICD-10-PCS; 2017-04-09)
PROC: 5A1D70Z Performance of Urinary Filtration, Intermittent, Less than 6 Hours Per Day (ICD-10-PCS; 2017-04-11)
PROC: 5A1D70Z Performance of Urinary Filtration, Intermittent, Less than 6 Hours Per Day (ICD-10-PCS; 2017-04-12)
PROC: 5A1D70Z Performance of Urinary Filtration, Intermittent, Less than 6 Hours Per Day (ICD-10-PCS; 2017-04-13)
PROC: 0BH17EZ Insertion of Endotracheal Airway into Trachea, Via Natural or Artificial Opening (ICD-10-PCS; 2017-06-03)
DX: T82.7XXA Infection and inflammatory reaction due to other cardiac and vascular devices, implants and grafts, initial encounter (principal); A41.02 Sepsis due to Methicillin resistant Staphylococcus aureus; I26.90 Septic pulmonary embolism without acute cor pulmonale; E43 Unspecified severe protein-calorie malnutrition; G06.1 Intraspinal abscess and granuloma; I33.0 Acute and subacute infective endocarditis; G82.50 Quadriplegia, unspecified; A04.72 Enterocolitis due to Clostridium difficile, not specified as recurrent; I76 Septic arterial embolism; J69.0 Pneumonitis due to inhalation of food and vomit; N17.0 Acute kidney failure with tubular necrosis; R65.21 Severe sepsis with septic shock; G93.41 Metabolic encephalopathy; G95.19 Other vascular myelopathies; J96.00 Acute respiratory failure, unspecified whether with hypoxia or hypercapnia; I50.42 Chronic combined systolic (congestive) and diastolic (congestive) heart failure; E87.0 Hyperosmolality and hypernatremia; I42.9 Cardiomyopathy, unspecified; J98.11 Atelectasis; N39.0 Urinary tract infection, site not specified; E27.40 Unspecified adrenocortical insufficiency; E87.4 Mixed disorder of acid-base balance; F03.91 Unspecified dementia, unspecified severity, with behavioral disturbance; G95.89 Other specified diseases of spinal cord; I24.8 Other forms of acute ischemic heart disease; I31.3 Pericardial effusion (noninflammatory); I48.1 Persistent atrial fibrillation; I48.92 Unspecified atrial flutter; M46.22 Osteomyelitis of vertebra, cervical region; Z99.11 Dependence on respirator [ventilator] status; I11.0 Hypertensive heart disease with heart failure; D18.1 Lymphangioma, any site; D63.8 Anemia in other chronic diseases classified elsewhere; D69.59 Other secondary thrombocytopenia; E55.9 Vitamin D deficiency, unspecified; E78.5 Hyperlipidemia, unspecified; E86.0 Dehydration; E87.5 Hyperkalemia; E87.6 Hypokalemia; E87.8 Other disorders of electrolyte and fluid balance, not elsewhere classified; F32.9 Major depressive disorder, single episode, unspecified; H70.93 Unspecified mastoiditis, bilateral; I48.0 Paroxysmal atrial fibrillation; J32.0 Chronic maxillary sinusitis; M43.6 Torticollis; M46.42 Discitis, unspecified, cervical region; E11.69 Type 2 diabetes mellitus with other specified complication; M48.02 Spinal stenosis, cervical region; M48.04 Spinal stenosis, thoracic region; R13.10 Dysphagia, unspecified; Z51.5 Encounter for palliative care; Z66 Do not resuscitate; Z79.899 Other long term (current) drug therapy; Z87.891 Personal history of nicotine dependence; Z91.81 History of falling; Z99.2 Dependence on renal dialysis; Z68.34 Body mass index [BMI] 34.0-34.9, adult; Y83.8 Other surgical procedures as the cause of abnormal reaction of the patient, or of later complication, without mention of misadventure at the time of the procedure; Y92.89 Other specified places as the place of occurrence of the external cause; B95.62 Methicillin resistant Staphylococcus aureus infection as the cause of diseases classified elsewhere
CPT/HCPCS: 10030; 10160; 33233; 33235; 36415; 36556; 36569; 36600; 51702; 70450; 70553; 71010; 72156; 74000; 76604; 76937; 77001; 80048; 80053; 80162; 80164; 80202; 81001; 82140; 82150; 82306; 82330; 82533; 82550; 82728; 82803; 82962; 83036; 83540; 83550; 83605; 83690; 83735; 84100; 84478; 84484; 84550; 85014; 85018; 85025; 85610; 85651; 86022; 86140; 86704; 86706; 86850; 86900; 86923; 87040; 87070; 87075; 87077; 87081; 87086; 87147; 87186; 87205; 87324; 87340; 89051; 93005; 93306; 93312; 93325; 93922; 94002; 94003; 94640; 96361; 96365; A9585; C1760; C1894; J0153; J0171; J0696; J0712; J0878; J1100; J1756; J1815; J1940; J1956; J2020; J2250; J2405; J2704; J3010; J3370; J3480; J3490; J7070; J7620; P9047; C1751; J0282; J0360; J1160; J1642; J1652; J1720; J2060; J2270; J7030; J7040; J7050; J7060; P9016; S0028